=== PATIENT | female | born 1980 | race Caucasian/White ===

== ENCOUNTER → 2017-06-21 | Outpatient (CLI) | payer OTHER | END | disposition home or self-care (01) | LOC: DIB 13:33 | DX: E11.8 Type 2 diabetes mellitus with unspecified complications (principal); Z79.4 Long term (current) use of insulin ==

== ENCOUNTER 2017-08-23 15:07 | Inpatient (IN) | payer OTHER ==
[2017-08-23] MEDS: VANCOMYCIN 1 GM (PMX) 250 ML IVPB (17:00)
[2017-08-23 18:58] LABS: WHITE BLOOD COUNT 19.3 10^3/ul (4.8-10.8)
[2017-08-23 18:58] LABS: HEMATOCRIT 26.6 % (37.0-47.0); HEMOGLOBIN 8.9 g/dl (12.0-16.0); MEAN CORPUSCULAR HEMOGLOBIN 28.7 pg (29.0-33.0); MEAN CORPUSCULAR HGB CONC 33.5 g/dl (32.0-37.0); MEAN CORPUSCULAR VOLUME 85.8 fl (82.0-101.0); PLATELET COUNT 596 10^3/UL (140-415); RED CELL DISTRIBUTION WIDTH 13.1 % (11.5-14.5)
[2017-08-23 19:06] LABS: ADD MAN DIFF? YES; INR 1.26; PARTIAL THROMBOPLASTIN TIME 30.8 Sec (25.0-35.0); POSITIVE DIFF @See below; PT RATIO 1.3
[2017-08-23 19:11] LABS: ALANINE AMINOTRANSFERASE 20 IU/L (13-69); ALBUMIN 3.1 g/dl (3.3-4.9); ALBUMIN/GLOBULIN RATIO 0.88; ALKALINE PHOSPHATASE 261 IU/L (42-121); ANION GAP 23 (8-16); ASPARTATE AMINO TRANSFERASE 17 IU/L (15-46); BILIRUBIN,INDIRECT 0.1 mg/dl (0-1.1); BILIRUBIN,TOTAL 0.1 mg/dl (0.2-1.3); BLOOD UREA NITROGEN 18 mg/dl (7-20); CALCIUM 8.7 mg/dl (8.4-10.2); CARBON DIOXIDE 21 mmol/L (21-31); CHLORIDE 92 mmol/L (97-110); CREATININE 0.89 mg/dl (0.44-1.00); LIPASE 25 U/L (23-300); POTASSIUM 4.3 mmol/L (3.5-5.1); SODIUM 132 mmol/L (135-144); TOTAL PROTEIN 6.6 g/dl (6.1-8.1)
[2017-08-23 19:18] LABS: GLUCOSE 417 mg/dl (70-220)
[2017-08-23] MEDS: INSULIN LISPRO 100 UNIT/ML VIAL SC ×2 (19:22→21:49)
[2017-08-23 19:30] LABS: BAND NEUTROPHILS #M 1.5 10^3/ul (0.0-0.6); BAND NEUTROPHILS % (M) 8 % (0-4); LYMPHOCYTES #M 0.7 10^3/ul (0.8-2.9); LYMPHOCYTES % (M) 4 % (15-51); MONOCYTE #M 1.3 10^3/ul (0.3-0.9); MONOCYTES % (M) 7 % (0-11); PLATELET ESTIMATE INCREASED; SEG NEUT #M 15.9 10^3/ul (1.7-7.5); SEGMENTED NEUTROPHILS (M) % 81 % (39-77)
[2017-08-23] MEDS ORDERED: GLUCAGON 1 MG INJ IM (19:30)
[2017-08-23] MEDS ORDERED: GLUCOSE GEL 15 GRAM TUBE PO ×2 (19:30)
[2017-08-23] MEDS ORDERED: DEXTROSE 50% 50 ML SYRINGE IV ×2 (19:30)
[2017-08-23 19:55] LABS: C-REACTIVE PROTEIN 40.8 mg/dl (0.0-0.9)
[2017-08-23 20:14] LABS: ADD UMIC YES; UR ASCORBIC ACID NEGATIVE (NEGATIVE); UR BILIRUBIN (Dip) NEGATIVE (NEGATIVE); UR BLOOD (Dip) 2+ mg/dL (NEGATIVE); UR CLARITY SLIGHTLY CLOUDY (CLEAR); UR COLOR YELLOW (YELLOW); UR GLUCOSE (Dip) 3+ mg/dL (NEGATIVE); UR KETONES (Dip) 2+ mg/dL (NEGATIVE); UR LEUKOCYTE ESTERASE (Dip) NEGATIVE Leu/ul (NEGATIVE); UR NITRITE (Dip) NEGATIVE (NEGATIVE); UR RBC 11 /HPF (0-5); UR SPECIFIC GRAVITY (Dip) 1.024 (1.003-1.030); UR TOTAL PROTEIN (Dip) 2+ mg/dl (NEGATIVE); UR UROBILINOGEN (Dip) NEGATIVE (NEGATIVE); UR WBC 3 /HPF (0-5)
[2017-08-23 20:40] LABS: AMPHETAMINE/METHAMPHETAMINE NEGATIVE (NEGATIVE); BARBITURATES NEGATIVE (NEGATIVE); BENZODIAZEPINES NEGATIVE (NEGATIVE); CANNABINOIDS NEGATIVE (NEGATIVE); COCAINE NEGATIVE (NEGATIVE); OPIATES NEGATIVE (NEGATIVE)
[2017-08-23] MEDS: ONDANSETRON 4 MG INJ IV (21:30)
[2017-08-23] MEDS: SOD CHLORIDE 0.9% 1,000 ML IV (21:30)
[2017-08-23] MEDS: morphine 4 MG/ML VIAL IV (21:31)
[2017-08-23] MEDS: CEFTRIAXONE 1 GM/50 ML (PMX) 50 ML IVPB (21:31)
[2017-08-24] MEDS: ACETAMINOPHEN 325 MG TAB PO (04:09)
[2017-08-24] MEDS: HYDROmorphONE 1 MG/ML SYG IV ×2 (04:10→17:24)
[2017-08-24] MEDS: INSULIN LISPRO 100 UNIT/ML VIAL SC (04:11)
[2017-08-24] MEDS ORDERED: morphine 2 MG INJ IV (05:30)
[2017-08-24] MEDS ORDERED: ALBUTEROL/IPRATROPIUM (NEB) 3 ML AMP HHN (05:30)
[2017-08-24] MEDS ORDERED: NACL 0.9% 3 ML SYG IV (05:30)
[2017-08-24] MEDS: CLINDAMYCIN 600 MG/D5W (PMX) 50 ML IVPB (06:07)
[2017-08-24] MEDS: SOD CHLORIDE 0.9% 1,000 ML IV ×2 (06:08→17:42)
[2017-08-24 09:18] LABS: ADD MAN DIFF? NO
[2017-08-24 09:20] LABS: WHITE BLOOD COUNT 21.3 10^3/ul (4.8-10.8)
[2017-08-24 09:20] LABS: BASOPHIL # 0.1 10^3/ul (0.0-0.1); BASOPHILS % 0.3 % (0.0-2.0); EOSINOPHILS % 0.2 % (0.0-7.0); HEMATOCRIT 24.6 % (37.0-47.0); HEMOGLOBIN 8.1 g/dl (12.0-16.0); LYMPHOCYTES # 1.8 10^3/ul (0.8-2.9); LYMPHOCYTES % 8.3 % (15.0-51.0); MEAN CORPUSCULAR HEMOGLOBIN 28.2 pg (29.0-33.0); MEAN CORPUSCULAR HGB CONC 32.9 g/dl (32.0-37.0); MEAN CORPUSCULAR VOLUME 85.7 fl (82.0-101.0); MEAN PLATELET VOLUME 10.5 fl (7.4-10.4); MONOCYTE # 1.4 10^3/ul (0.3-0.9); MONOCYTES % 6.4 % (0.0-11.0); NEUTROPHIL # 17.6 10^3/ul (1.6-7.5); NEUTROPHILS % 82.9 % (39.0-77.0); PLATELET COUNT 509 10^3/UL (140-415); RED BLOOD COUNT 2.87 10^6/ul (4.20-5.40); RED CELL DISTRIBUTION WIDTH 13.2 % (11.5-14.5)
[2017-08-24 09:39] LABS: ALANINE AMINOTRANSFERASE 17 IU/L (13-69); ALBUMIN 2.7 g/dl (3.3-4.9); ALBUMIN/GLOBULIN RATIO 0.72; ALKALINE PHOSPHATASE 220 IU/L (42-121); ANION GAP 17 (8-16); ASPARTATE AMINO TRANSFERASE 13 IU/L (15-46); BLOOD UREA NITROGEN 20 mg/dl (7-20); CALCIUM 8.6 mg/dl (8.4-10.2); CARBON DIOXIDE 26 mmol/L (21-31); CHLORIDE 98 mmol/L (97-110); CREATININE 0.85 mg/dl (0.44-1.00); GLUCOSE 240 mg/dl (70-220); POTASSIUM 3.9 mmol/L (3.5-5.1); SODIUM 137 mmol/L (135-144); TOTAL PROTEIN 6.4 g/dl (6.1-8.1)
[2017-08-24] MEDS: PIPER-TAZO 3.375 GM IV (PMX) 50 ML IV ×2 (10:44→17:41)
[2017-08-24] MEDS: HEPARIN 5,000 UNIT/0.5 ML VIAL SC ×2 (10:46→21:24)
[2017-08-24] MEDS: ONDANSETRON 4 MG INJ IV (17:19)
[2017-08-24] MEDS: INSULIN GLARGINE [LANtus] 3 ML PEN SC (17:48)
[2017-08-24] MEDS ORDERED: INSULIN GLARGINE [LANtus] 3 ML PEN SC (21:00)
[2017-08-24] MEDS: INSULIN ASPART [NOVOLOG] 3 ML PEN SC (21:26)
[2017-08-25] MEDS: PIPER-TAZO 3.375 GM IV (PMX) 50 ML IV ×3 (03:45→19:11)
[2017-08-25] MEDS: SOD CHLORIDE 0.9% 1,000 ML IV ×3 (03:46→21:21)
[2017-08-25] MEDS: HYDROmorphONE 1 MG/ML SYG IV ×4 (03:48→17:56)
[2017-08-25 05:32] LABS: ADD MAN DIFF? NO
[2017-08-25 05:36] LABS: BASOPHIL # 0.1 10^3/ul (0.0-0.1); BASOPHILS % 0.3 % (0.0-2.0); EOSINOPHILS % 0.2 % (0.0-7.0); HEMATOCRIT 24.5 % (37.0-47.0); LYMPHOCYTES # 1.5 10^3/ul (0.8-2.9); LYMPHOCYTES % 6.4 % (15.0-51.0); MEAN CORPUSCULAR HEMOGLOBIN 28.4 pg (29.0-33.0); MEAN CORPUSCULAR HGB CONC 32.7 g/dl (32.0-37.0); MEAN CORPUSCULAR VOLUME 86.9 fl (82.0-101.0); MEAN PLATELET VOLUME 10.1 fl (7.4-10.4); MONOCYTE # 1.1 10^3/ul (0.3-0.9); MONOCYTES % 4.9 % (0.0-11.0); NEUTROPHIL # 19.6 10^3/ul (1.6-7.5); NEUTROPHILS % 85.9 % (39.0-77.0); PLATELET COUNT 560 10^3/UL (140-415); RED BLOOD COUNT 2.82 10^6/ul (4.20-5.40)
[2017-08-25 05:36] LABS: WHITE BLOOD COUNT 22.8 10^3/ul (4.8-10.8)
[2017-08-25 06:09] LABS: POSITIVE DIFF @See below
[2017-08-25 06:47] LABS: ANION GAP 15 (8-16); BLOOD UREA NITROGEN 16 mg/dl (7-20); CALCIUM 7.9 mg/dl (8.4-10.2); CARBON DIOXIDE 22 mmol/L (21-31); CHLORIDE 103 mmol/L (97-110); CREATININE 0.96 mg/dl (0.44-1.00); GLUCOSE 229 mg/dl (70-220); MAGNESIUM 1.9 mg/dl (1.7-2.5); PHOSPHORUS 3.5 mg/dl (2.5-4.9); POTASSIUM 3.5 mmol/L (3.5-5.1); SODIUM 136 mmol/L (135-144)
[2017-08-25] MEDS: INSULIN GLARGINE [LANtus] 3 ML PEN SC ×2 (09:10→21:52)
[2017-08-25] MEDS: HEPARIN 5,000 UNIT/0.5 ML VIAL SC ×2 (09:10→20:53)
[2017-08-25 10:40] LABS: BAND NEUTROPHILS #M 4.7 10^3/ul (0.0-0.6); BAND NEUTROPHILS % (M) 21 % (0-4); GIANT THROMBO% (M) 1 % (0-0); LYMPHOCYTES #M 1.3 10^3/ul (0.8-2.9); LYMPHOCYTES % (M) 6 % (15-51); MONOCYTE #M 1.8 10^3/ul (0.3-0.9); MONOCYTES % (M) 8 % (0-11); PLATELET ESTIMATE INCREASED; POLYCHROMASIA 2+ (0-0); SEG NEUT #M 15.9 10^3/ul (1.7-7.5); SEGMENTED NEUTROPHILS (M) % 65 % (39-77); SMUDGE%M 3 % (0-0)
[2017-08-25] MEDS: INSULIN ASPART [NOVOLOG] 3 ML PEN SC ×5 (13:14→21:00)
[2017-08-25 20:35] LABS: LACTIC ACID 1.1 mmol/L (0.5-2.0)
[2017-08-25] MEDS: CLINDAMYCIN 900 MG/D5W (PMX) 50 ML IVPB (20:41)
[2017-08-25] MEDS: oxyCODONE (CR) 10 MG TAB [oxyCONTIN] PO (21:41)
[2017-08-25] MEDS: DAPTOMYCIN IVPB (23:45)
[2017-08-25] MEDS: SOD CHLORIDE 0.9% IVPB (23:45)
[2017-08-26] MEDS: PIPER-TAZO 3.375 GM IV (PMX) 50 ML IV ×3 (01:22→17:28)
[2017-08-26] MEDS: ACCU-CHEK XX (02:55)
[2017-08-26] MEDS: CLINDAMYCIN 900 MG/D5W (PMX) 50 ML IVPB ×4 (02:56→23:41)
[2017-08-26] MEDS: HYDROmorphONE 1 MG/ML SYG IV ×2 (04:46→17:28)
[2017-08-26] MEDS: SOD CHLORIDE 0.9% 1,000 ML IV ×2 (06:07→17:24)
[2017-08-26 07:19] LABS: CREATINE KINASE < 20 IU/L (23-200)
[2017-08-26] MEDS: INSULIN ASPART [NOVOLOG] 3 ML PEN SC ×7 (07:35→20:53)
[2017-08-26] MEDS ORDERED: INSULIN ASPART [NOVOLOG] 3 ML PEN SC ×3 (07:35→17:35)
[2017-08-26] MEDS: oxyCODONE (CR) 10 MG TAB [oxyCONTIN] PO ×2 (09:29→22:50)
[2017-08-26] MEDS: HEPARIN 5,000 UNIT/0.5 ML VIAL SC ×2 (09:38→20:57)
[2017-08-26] MEDS: INSULIN GLARGINE [LANtus] 3 ML PEN SC (09:41)
[2017-08-26] MEDS: ACETAMINOPHEN 325 MG TAB PO (14:36)
[2017-08-26] MEDS: SOD CHLORIDE 0.9% IVPB (19:52)
[2017-08-26] MEDS: DAPTOMYCIN IVPB (19:52)
[2017-08-26] MEDS: GEMFIBROZIL 600 MG TAB PO (20:53)
[2017-08-26] MEDS: DOCUSATE SODIUM 100 MG CAP PO (20:53)
[2017-08-27] MEDS: PIPER-TAZO 3.375 GM IV (PMX) 50 ML IV ×4 (00:38→17:22)
[2017-08-27] MEDS: HYDROmorphONE 1 MG/ML SYG IV ×3 (02:18→22:36)
[2017-08-27] MEDS: ACCU-CHEK XX (02:18)
[2017-08-27] MEDS: CLINDAMYCIN 900 MG/D5W (PMX) 50 ML IVPB ×3 (05:06→18:55)
[2017-08-27 05:43] LABS: ABNORMAL IP MESSAGE 1; HEMATOCRIT 21.1 % (37.0-47.0); MEAN CORPUSCULAR HGB CONC 31.8 g/dl (32.0-37.0); MEAN CORPUSCULAR VOLUME 88.3 fl (82.0-101.0); MEAN PLATELET VOLUME 9.9 fl (7.4-10.4); NUCLEATED RED BLOOD CELLS% 0.2 /100WBC (0.0-0.0); PLATELET COUNT 593 10^3/UL (140-415); RED BLOOD COUNT 2.39 10^6/ul (4.20-5.40); RED CELL DISTRIBUTION WIDTH 14.7 % (11.5-14.5)
[2017-08-27 05:43] LABS: WHITE BLOOD COUNT 23.5 10^3/ul (4.8-10.8)
[2017-08-27 06:00] LABS: HEMOGLOBIN 6.7 g/dl (12.0-16.0); POSITIVE DIFF @See below
[2017-08-27 06:02] LABS: ADD MAN DIFF? YES
[2017-08-27 06:28] LABS: ANION GAP 18 (8-16); BLOOD UREA NITROGEN 14 mg/dl (7-20); CALCIUM 7.7 mg/dl (8.4-10.2); CARBON DIOXIDE 19 mmol/L (21-31); CHLORIDE 106 mmol/L (97-110); CREATININE 1.23 mg/dl (0.44-1.00); GLUCOSE 91 mg/dl (70-220); POTASSIUM 3.6 mmol/L (3.5-5.1); SODIUM 139 mmol/L (135-144)
[2017-08-27] MEDS: INSULIN GLARGINE [LANtus] 3 ML PEN SC ×2 (08:00→20:49)
[2017-08-27] MEDS: INSULIN ASPART [NOVOLOG] 3 ML PEN SC ×4 (08:00→21:00)
[2017-08-27] MEDS: GLUCOSE GEL 15 GRAM TUBE BUCCAL (08:03)
[2017-08-27] MEDS: HEPARIN 5,000 UNIT/0.5 ML VIAL SC ×2 (09:00→21:16)
[2017-08-27] MEDS: SOD CHLORIDE 0.9% 1,000 ML IV ×4 (09:11→23:21)
[2017-08-27] MEDS: GEMFIBROZIL 600 MG TAB PO ×2 (09:12→20:51)
[2017-08-27] MEDS: DOCUSATE SODIUM 100 MG CAP PO ×2 (09:12→20:51)
[2017-08-27] MEDS: oxyCODONE (CR) 10 MG TAB [oxyCONTIN] PO ×2 (09:13→22:03)
[2017-08-27] MEDS: ASPIRIN (EC) 81 MG TAB PO (09:13)
[2017-08-27] MEDS: ACETAMINOPHEN 325 MG TAB PO (13:23)
[2017-08-27] MEDS: SOD CHLORIDE 0.9% IVPB (20:53)
[2017-08-27] MEDS: DAPTOMYCIN IVPB (20:53)
[2017-08-27 22:25] LABS: IMMEDIATE SPIN CROSSMATCH 1 2
[2017-08-28] MEDS: ACCU-CHEK XX (02:00)
[2017-08-28] MEDS: HYDROmorphONE 1 MG/ML SYG IV ×2 (02:07→15:33)
[2017-08-28] MEDS: PIPER-TAZO 3.375 GM IV (PMX) 50 ML IV ×5 (02:14→17:07)
[2017-08-28] MEDS: CLINDAMYCIN 900 MG/D5W (PMX) 50 ML IVPB ×5 (02:53→17:34)
[2017-08-28 06:52] LABS: WHITE BLOOD COUNT 18.7 10^3/ul (4.8-10.8)
[2017-08-28 06:52] LABS: HEMATOCRIT 26.3 % (37.0-47.0); HEMOGLOBIN 8.8 g/dl (12.0-16.0); MEAN CORPUSCULAR HGB CONC 33.5 g/dl (32.0-37.0); MEAN CORPUSCULAR VOLUME 86.8 fl (82.0-101.0); MEAN PLATELET VOLUME 9.4 fl (7.4-10.4); NUCLEATED RED BLOOD CELLS% 0.3 /100WBC (0.0-0.0); PLATELET COUNT 570 10^3/UL (140-415); RED BLOOD COUNT 3.03 10^6/ul (4.20-5.40); RED CELL DISTRIBUTION WIDTH 14.5 % (11.5-14.5)
[2017-08-28 07:01] LABS: POSITIVE DIFF @See below
[2017-08-28 07:02] LABS: ADD MAN DIFF? YES
[2017-08-28 07:39] LABS: ANION GAP 16 (8-16); BLOOD UREA NITROGEN 11 mg/dl (7-20); CALCIUM 7.5 mg/dl (8.4-10.2); CARBON DIOXIDE 20 mmol/L (21-31); CHLORIDE 107 mmol/L (97-110); CREATININE 1.04 mg/dl (0.44-1.00); GLUCOSE 153 mg/dl (70-220); SODIUM 139 mmol/L (135-144)
[2017-08-28] MEDS: INSULIN ASPART [NOVOLOG] 3 ML PEN SC ×4 (07:58→20:25)
[2017-08-28] MEDS: INSULIN GLARGINE [LANtus] 3 ML PEN SC ×2 (07:59→20:28)
[2017-08-28] MEDS: HEPARIN 5,000 UNIT/0.5 ML VIAL SC ×2 (08:00→20:27)
[2017-08-28] MEDS: ASPIRIN (EC) 81 MG TAB PO (08:03)
[2017-08-28] MEDS: DOCUSATE SODIUM 100 MG CAP PO ×2 (08:03→20:26)
[2017-08-28] MEDS: oxyCODONE (CR) 10 MG TAB [oxyCONTIN] PO ×2 (08:03→20:36)
[2017-08-28] MEDS: GEMFIBROZIL 600 MG TAB PO ×2 (08:04→20:26)
[2017-08-28 08:23] LABS: BASOPHIL # 0.1 10^3/ul (0.0-0.1); BASOPHILS % 0.4 % (0.0-2.0); LYMPHOCYTES # 2.1 10^3/ul (0.8-2.9); LYMPHOCYTES % 10.3 % (15.0-51.0); MONOCYTE # 0.9 10^3/ul (0.3-0.9); MONOCYTES % 4.2 % (0.0-11.0)
[2017-08-28 08:46] LABS: ANISOCYTOSIS 1+ (0-0); BAND NEUTROPHILS #M 1.1 10^3/ul (0.0-0.6); BAND NEUTROPHILS % (M) 6 % (0-4); ERYTHROBLAST% (NRBC) (M) 2 % (0-0); LYMPHOCYTES #M 3.7 10^3/ul (0.8-2.9); LYMPHOCYTES % (M) 20 % (15-51); PLATELET ESTIMATE INCREASED; REACTIVE LYMPHOCYTES #M 0.1 10^3/ul (0.0-0.0); REACTIVE LYMPHOCYTES% (M) 1 % (0-0); SEG NEUT #M 13.9 10^3/ul (1.7-7.5); SEGMENTED NEUTROPHILS (M) % 73 % (39-77); SMUDGE%M 10 % (0-0)
[2017-08-28] MEDS: SOD CHLORIDE 0.9% 1,000 ML IV ×3 (09:21→19:21)
[2017-08-28] MEDS: SOD CHLORIDE 0.9% IVPB (19:48)
[2017-08-28] MEDS: DAPTOMYCIN IVPB (19:48)
[2017-08-29] MEDS: PIPER-TAZO 3.375 GM IV (PMX) 50 ML IV ×3 (00:03→12:27)
[2017-08-29] MEDS: CLINDAMYCIN 900 MG/D5W (PMX) 50 ML IVPB ×3 (00:49→12:27)
[2017-08-29] MEDS: ACCU-CHEK XX (02:00)
[2017-08-29] MEDS: SOD CHLORIDE 0.9% 1,000 ML IV ×3 (05:19→17:54)
[2017-08-29] MEDS: HYDROmorphONE 1 MG/ML SYG IV (05:21)
[2017-08-29 05:51] LABS: ADD MAN DIFF? NO
[2017-08-29 05:55] LABS: BASOPHIL # 0.1 10^3/ul (0.0-0.1); BASOPHILS % 0.3 % (0.0-2.0); EOSINOPHILS # 0.2 10^3/ul (0.0-0.5); EOSINOPHILS % 1.4 % (0.0-7.0); HEMATOCRIT 25.2 % (37.0-47.0); HEMOGLOBIN 8.6 g/dl (12.0-16.0); LYMPHOCYTES % 12.3 % (15.0-51.0); MEAN CORPUSCULAR HEMOGLOBIN 29.6 pg (29.0-33.0); MEAN CORPUSCULAR HGB CONC 34.1 g/dl (32.0-37.0); MEAN CORPUSCULAR VOLUME 86.6 fl (82.0-101.0); MEAN PLATELET VOLUME 9.3 fl (7.4-10.4); MONOCYTE # 0.8 10^3/ul (0.3-0.9); MONOCYTES % 4.6 % (0.0-11.0); NEUTROPHIL # 12.9 10^3/ul (1.6-7.5); NEUTROPHILS % 77.5 % (39.0-77.0); NUCLEATED RED BLOOD CELLS% 0.2 /100WBC (0.0-0.0); PLATELET COUNT 638 10^3/UL (140-415); RED BLOOD COUNT 2.91 10^6/ul (4.20-5.40); RED CELL DISTRIBUTION WIDTH 14.6 % (11.5-14.5)
[2017-08-29 05:55] LABS: WHITE BLOOD COUNT 16.6 10^3/ul (4.8-10.8)
[2017-08-29 06:33] LABS: ANION GAP 14 (8-16); BLOOD UREA NITROGEN 9 mg/dl (7-20); CALCIUM 7.8 mg/dl (8.4-10.2); CARBON DIOXIDE 21 mmol/L (21-31); CHLORIDE 106 mmol/L (97-110); CREATININE 0.88 mg/dl (0.44-1.00); GLUCOSE 122 mg/dl (70-220); POTASSIUM 4.3 mmol/L (3.5-5.1); SODIUM 137 mmol/L (135-144)
[2017-08-29] MEDS: INSULIN ASPART [NOVOLOG] 3 ML PEN SC ×4 (08:00→20:23)
[2017-08-29] MEDS: HEPARIN 5,000 UNIT/0.5 ML VIAL SC ×2 (08:43→20:22)
[2017-08-29] MEDS: INSULIN GLARGINE [LANtus] 3 ML PEN SC ×2 (08:43→20:22)
[2017-08-29] MEDS: DOCUSATE SODIUM 100 MG CAP PO ×2 (08:45→20:20)
[2017-08-29] MEDS: ASPIRIN (EC) 81 MG TAB PO (08:45)
[2017-08-29] MEDS: oxyCODONE (CR) 10 MG TAB [oxyCONTIN] PO ×2 (08:45→20:20)
[2017-08-29] MEDS: GEMFIBROZIL 600 MG TAB PO ×2 (08:45→20:20)
[2017-08-29] MEDS: LIDOCAINE 1% (MDV) 20 ML INJ SC (16:00)
[2017-08-29] MEDS: HYDROmorphONE 2 MG TAB PO (16:23)
[2017-08-29] MEDS: COLLAGENASE 30 GM TUBE TOP (17:24)
[2017-08-29] MEDS: AMPICILLIN/SULB 3 GM/NS (PMX) 100 ML IVPB ×2 (17:24→23:54)
[2017-08-29 18:24] LABS: SYN FLD MN % 46.3 &; SYN FLD PMN % 53.7 % (0.0-25.0); SYN FLD WBC 462 /cmm (0-150)
[2017-08-29 19:19] LABS: SYN FLD SOURCE RIGHT KNEE
[2017-08-29 19:19] LABS: SYN FLD CLARITY CLOUDY; SYN FLD CRYSTALS NO CRYSTALS SEEN (None seen)
[2017-08-29 21:48] LABS: SYN FLD COLOR YELLOW
[2017-08-30] MEDS: ACCU-CHEK XX (02:00)
[2017-08-30] MEDS: AMPICILLIN/SULB 3 GM/NS (PMX) 100 ML IVPB ×2 (05:30→11:58)
[2017-08-30] MEDS: SOD CHLORIDE 0.9% 1,000 ML IV ×2 (05:30→20:05)
[2017-08-30 05:54] LABS: ADD MAN DIFF? NO
[2017-08-30 06:17] LABS: BASOPHIL # 0.1 10^3/ul (0.0-0.1); BASOPHILS % 0.3 % (0.0-2.0); EOSINOPHILS # 0.3 10^3/ul (0.0-0.5); EOSINOPHILS % 2.1 % (0.0-7.0); HEMATOCRIT 25.9 % (37.0-47.0); HEMOGLOBIN 8.7 g/dl (12.0-16.0); LYMPHOCYTES % 13.4 % (15.0-51.0); MEAN CORPUSCULAR HEMOGLOBIN 29.7 pg (29.0-33.0); MEAN CORPUSCULAR HGB CONC 33.6 g/dl (32.0-37.0); MEAN CORPUSCULAR VOLUME 88.4 fl (82.0-101.0); MEAN PLATELET VOLUME 9.5 fl (7.4-10.4); MONOCYTE # 0.9 10^3/ul (0.3-0.9); NEUTROPHIL # 11.1 10^3/ul (1.6-7.5); NUCLEATED RED BLOOD CELLS% 0.2 /100WBC (0.0-0.0); RED BLOOD COUNT 2.93 10^6/ul (4.20-5.40); RED CELL DISTRIBUTION WIDTH 14.7 % (11.5-14.5)
[2017-08-30 06:17] LABS: WHITE BLOOD COUNT 14.9 10^3/ul (4.8-10.8)
[2017-08-30 06:19] LABS: PLATELET COUNT 673 10^3/UL (140-415)
[2017-08-30 06:27] LABS: ANION GAP 13 (8-16); BLOOD UREA NITROGEN 8 mg/dl (7-20); CALCIUM 7.8 mg/dl (8.4-10.2); CARBON DIOXIDE 25 mmol/L (21-31); CHLORIDE 104 mmol/L (97-110); CREATININE 0.78 mg/dl (0.44-1.00); GLUCOSE 136 mg/dl (70-220); POTASSIUM 4.4 mmol/L (3.5-5.1); SODIUM 138 mmol/L (135-144)
[2017-08-30] MEDS: INSULIN ASPART [NOVOLOG] 3 ML PEN SC ×5 (07:54→21:00)
[2017-08-30] MEDS: INSULIN GLARGINE [LANtus] 3 ML PEN SC ×2 (07:55→22:13)
[2017-08-30] MEDS: GEMFIBROZIL 600 MG TAB PO ×2 (08:59→21:03)
[2017-08-30] MEDS: DOCUSATE SODIUM 100 MG CAP PO ×2 (08:59→21:03)
[2017-08-30] MEDS: ASPIRIN (EC) 81 MG TAB PO (08:59)
[2017-08-30] MEDS: oxyCODONE (CR) 10 MG TAB [oxyCONTIN] PO ×2 (08:59→21:03)
[2017-08-30] MEDS: COLLAGENASE 30 GM TUBE TOP (09:02)
[2017-08-30] MEDS: HEPARIN 5,000 UNIT/0.5 ML VIAL SC ×2 (09:02→21:04)
[2017-08-30] MEDS: HYDROmorphONE 2 MG TAB PO (12:01)
[2017-08-30] MEDS: SULBAC IVPB (21:02)
[2017-08-30] MEDS: SOD CHLORIDE 0.9% IVPB (21:02)
[2017-08-30] MEDS: AMPICILLIN IVPB (21:02)
[2017-08-31] MEDS: ACCU-CHEK XX (02:00)
[2017-08-31] MEDS: AMPICILLIN IVPB ×4 (02:00→17:55)
[2017-08-31] MEDS: SOD CHLORIDE 0.9% IVPB ×4 (02:00→17:55)
[2017-08-31] MEDS: SULBAC IVPB ×4 (02:00→17:55)
[2017-08-31] MEDS: HYDROmorphONE 2 MG TAB PO (02:56)
[2017-08-31 05:57] LABS: ADD MAN DIFF? NO
[2017-08-31 06:12] LABS: BASOPHILS % 0.1 % (0.0-2.0); EOSINOPHILS # 0.3 10^3/ul (0.0-0.5); HEMATOCRIT 27.5 % (37.0-47.0); LYMPHOCYTES # 2.2 10^3/ul (0.8-2.9); LYMPHOCYTES % 14.7 % (15.0-51.0); MEAN CORPUSCULAR HEMOGLOBIN 28.7 pg (29.0-33.0); MEAN CORPUSCULAR HGB CONC 32.7 g/dl (32.0-37.0); MEAN CORPUSCULAR VOLUME 87.6 fl (82.0-101.0); MEAN PLATELET VOLUME 9.3 fl (7.4-10.4); MONOCYTE # 0.9 10^3/ul (0.3-0.9); MONOCYTES % 6.2 % (0.0-11.0); NEUTROPHIL # 10.9 10^3/ul (1.6-7.5); NEUTROPHILS % 73.5 % (39.0-77.0); PLATELET COUNT 744 10^3/UL (140-415); RED BLOOD COUNT 3.14 10^6/ul (4.20-5.40); RED CELL DISTRIBUTION WIDTH 14.5 % (11.5-14.5)
[2017-08-31 06:12] LABS: WHITE BLOOD COUNT 14.8 10^3/ul (4.8-10.8)
[2017-08-31 06:51] LABS: ANION GAP 13 (8-16); BLOOD UREA NITROGEN 12 mg/dl (7-20); CALCIUM 8.1 mg/dl (8.4-10.2); CARBON DIOXIDE 27 mmol/L (21-31); CHLORIDE 102 mmol/L (97-110); CREATININE 0.73 mg/dl (0.44-1.00); GLUCOSE 135 mg/dl (70-220); POTASSIUM 3.9 mmol/L (3.5-5.1); SODIUM 138 mmol/L (135-144)
[2017-08-31] MEDS: INSULIN ASPART [NOVOLOG] 3 ML PEN SC ×7 (08:00→21:22)
[2017-08-31] MEDS: DOCUSATE SODIUM 100 MG CAP PO ×2 (09:27→21:18)
[2017-08-31] MEDS: ASPIRIN (EC) 81 MG TAB PO (09:27)
[2017-08-31] MEDS: oxyCODONE (CR) 10 MG TAB [oxyCONTIN] PO ×2 (09:28→21:18)
[2017-08-31] MEDS: GEMFIBROZIL 600 MG TAB PO ×2 (09:29→21:18)
[2017-08-31] MEDS: HEPARIN 5,000 UNIT/0.5 ML VIAL SC ×2 (09:32→21:20)
[2017-08-31] MEDS: SOD CHLORIDE 0.9% 1,000 ML IV (09:35)
[2017-08-31 11:23] LABS: PROCALCITONIN 2.27 ng/mL (<0.10)
[2017-08-31] MEDS: COLLAGENASE 30 GM TUBE TOP (14:00)
[2017-08-31] MEDS: INSULIN GLARGINE [LANtus] 3 ML PEN SC (21:24)
[2017-09-01] MEDS: SOD CHLORIDE 0.9% IVPB ×4 (00:15→17:02)
[2017-09-01] MEDS: AMPICILLIN IVPB ×4 (00:15→17:02)
[2017-09-01] MEDS: SULBAC IVPB ×4 (00:15→17:02)
[2017-09-01] MEDS: ACCU-CHEK XX (02:00)
[2017-09-01] MEDS: SOD CHLORIDE 0.9% 1,000 ML IV ×3 (05:19→12:46)
[2017-09-01 06:00] LABS: ADD MAN DIFF? NO
[2017-09-01 06:14] LABS: BASOPHILS % 0.2 % (0.0-2.0); EOSINOPHILS # 0.3 10^3/ul (0.0-0.5); EOSINOPHILS % 1.8 % (0.0-7.0); HEMATOCRIT 28.3 % (37.0-47.0); HEMOGLOBIN 9.2 g/dl (12.0-16.0); LYMPHOCYTES # 2.5 10^3/ul (0.8-2.9); LYMPHOCYTES % 16.8 % (15.0-51.0); MEAN CORPUSCULAR HEMOGLOBIN 28.5 pg (29.0-33.0); MEAN CORPUSCULAR HGB CONC 32.5 g/dl (32.0-37.0); MEAN CORPUSCULAR VOLUME 87.6 fl (82.0-101.0); MEAN PLATELET VOLUME 9.2 fl (7.4-10.4); MONOCYTE # 0.9 10^3/ul (0.3-0.9); MONOCYTES % 6.4 % (0.0-11.0); NEUTROPHIL # 10.7 10^3/ul (1.6-7.5); NEUTROPHILS % 72.6 % (39.0-77.0); RED BLOOD COUNT 3.23 10^6/ul (4.20-5.40); RED CELL DISTRIBUTION WIDTH 14.2 % (11.5-14.5)
[2017-09-01 06:14] LABS: WHITE BLOOD COUNT 14.7 10^3/ul (4.8-10.8)
[2017-09-01 06:34] LABS: ANION GAP 12 (8-16); BLOOD UREA NITROGEN 19 mg/dl (7-20); CARBON DIOXIDE 29 mmol/L (21-31); CHLORIDE 98 mmol/L (97-110); CREATININE 0.77 mg/dl (0.44-1.00); GLUCOSE 224 mg/dl (70-220); SODIUM 135 mmol/L (135-144)
[2017-09-01 07:27] LABS: PLATELET COUNT 775 10^3/UL (140-415)
[2017-09-01] MEDS: INSULIN ASPART [NOVOLOG] 3 ML PEN SC ×7 (08:26→22:25)
[2017-09-01] MEDS: HEPARIN 5,000 UNIT/0.5 ML VIAL SC ×2 (08:28→22:25)
[2017-09-01] MEDS: COLLAGENASE 30 GM TUBE TOP ×2 (09:00→15:40)
[2017-09-01] MEDS: DOCUSATE SODIUM 100 MG CAP PO ×2 (09:31→22:18)
[2017-09-01] MEDS: ASPIRIN (EC) 81 MG TAB PO (09:32)
[2017-09-01] MEDS: oxyCODONE (CR) 10 MG TAB [oxyCONTIN] PO ×2 (09:32→22:38)
[2017-09-01] MEDS: GEMFIBROZIL 600 MG TAB PO ×2 (09:32→22:38)
[2017-09-01] MEDS: INSULIN GLARGINE [LANtus] 3 ML PEN SC (22:23)
[2017-09-02] MEDS: ACCU-CHEK XX (03:00)
[2017-09-02] MEDS: SOD CHLORIDE 0.9% 1,000 ML IV (03:03)
[2017-09-02] MEDS: AMPICILLIN IVPB ×4 (03:05→20:37)
[2017-09-02] MEDS: SULBAC IVPB ×4 (03:05→20:37)
[2017-09-02] MEDS: SOD CHLORIDE 0.9% IVPB ×4 (03:05→20:37)
[2017-09-02] MEDS: INSULIN ASPART [NOVOLOG] 3 ML PEN SC ×7 (08:00→21:34)
[2017-09-02] MEDS: GEMFIBROZIL 600 MG TAB PO ×2 (08:20→20:29)
[2017-09-02] MEDS: DOCUSATE SODIUM 100 MG CAP PO ×2 (08:20→20:29)
[2017-09-02] MEDS: oxyCODONE (CR) 10 MG TAB [oxyCONTIN] PO ×2 (08:20→20:29)
[2017-09-02] MEDS: ASPIRIN (EC) 81 MG TAB PO (08:21)
[2017-09-02] MEDS: HEPARIN 5,000 UNIT/0.5 ML VIAL SC ×2 (08:22→20:33)
[2017-09-02] MEDS: COLLAGENASE 30 GM TUBE TOP (08:29)
[2017-09-02] MEDS: HYDROmorphONE 2 MG TAB PO (11:18)
[2017-09-02] MEDS ORDERED: MIDAZOLAM 1 MG/ML 2 ML INJ (17:38)
[2017-09-02] MEDS ORDERED: FENTAnyl 50 MCG/ML VIAL (17:38)
[2017-09-02] MEDS: POLYMYXIN/BACITRACIN 1L IRRIG (18:08)
[2017-09-02] MEDS ORDERED: PROPOFOL 20 ML (18:20)
[2017-09-02] MEDS ORDERED: METOCLOPRAMIDE 10 MG INJ (18:20)
[2017-09-02] MEDS ORDERED: ONDANSETRON 4 MG INJ (18:20)
[2017-09-02] MEDS ORDERED: LABETALOL HCL 20MG INJ IV (18:30)
[2017-09-02] MEDS ORDERED: ONDANSETRON 4 MG INJ IV (18:30)
[2017-09-02] MEDS ORDERED: HYDROmorphONE (0.2 MG/ML) 10ML SYG IV ×3 (18:30)
[2017-09-02] MEDS ORDERED: MEPERIDINE 25 MG INJ IV (18:30)
[2017-09-02] MEDS ORDERED: DIPHENHYDRAMINE 50 MG INJ IV (18:30)
[2017-09-02] MEDS ORDERED: FENTAnyl 50 MCG/ML VIAL IV ×2 (18:30)
[2017-09-02] MEDS ORDERED: EPHEDrine SULFATE 50 MG/5 ML SYG IV (18:30)
[2017-09-02] MEDS ORDERED: hydrALAzine 20 MG INJ IV (18:30)
[2017-09-02] MEDS: METOCLOPRAMIDE 10 MG INJ IV (18:53)
[2017-09-02] MEDS: FENTAnyl 50 MCG/ML VIAL IV (18:53)
[2017-09-02] MEDS: INSULIN GLARGINE [LANtus] 3 ML PEN SC (20:31)
[2017-09-03] MEDS: SULBAC IVPB ×5 (01:19→23:25)
[2017-09-03] MEDS: SOD CHLORIDE 0.9% IVPB ×5 (01:19→23:25)
[2017-09-03] MEDS: AMPICILLIN IVPB ×5 (01:19→23:25)
[2017-09-03] MEDS: ACCU-CHEK XX (02:55)
[2017-09-03 05:07] LABS: ADD MAN DIFF? NO
[2017-09-03 05:13] LABS: BASOPHILS % 0.3 % (0.0-2.0); EOSINOPHILS # 0.3 10^3/ul (0.0-0.5); EOSINOPHILS % 2.4 % (0.0-7.0); HEMATOCRIT 27.7 % (37.0-47.0); LYMPHOCYTES # 2.1 10^3/ul (0.8-2.9); LYMPHOCYTES % 16.5 % (15.0-51.0); MEAN CORPUSCULAR HEMOGLOBIN 28.8 pg (29.0-33.0); MEAN CORPUSCULAR HGB CONC 32.5 g/dl (32.0-37.0); MEAN CORPUSCULAR VOLUME 88.5 fl (82.0-101.0); MONOCYTE # 0.7 10^3/ul (0.3-0.9); MONOCYTES % 5.5 % (0.0-11.0); NEUTROPHIL # 9.4 10^3/ul (1.6-7.5); NEUTROPHILS % 74.4 % (39.0-77.0); PLATELET COUNT 794 10^3/UL (140-415); RED BLOOD COUNT 3.13 10^6/ul (4.20-5.40); RED CELL DISTRIBUTION WIDTH 14.2 % (11.5-14.5)
[2017-09-03 05:13] LABS: WHITE BLOOD COUNT 12.6 10^3/ul (4.8-10.8)
[2017-09-03 05:30] LABS: ANION GAP 14 (8-16); BLOOD UREA NITROGEN 23 mg/dl (7-20); CALCIUM 8.2 mg/dl (8.4-10.2); CARBON DIOXIDE 28 mmol/L (21-31); CHLORIDE 99 mmol/L (97-110); CREATININE 0.86 mg/dl (0.44-1.00); GLUCOSE 215 mg/dl (70-220); POTASSIUM 4.1 mmol/L (3.5-5.1); SODIUM 137 mmol/L (135-144)
[2017-09-03] MEDS: SOD CHLORIDE 0.9% 1,000 ML IV (05:39)
[2017-09-03] MEDS: HYDROmorphONE 2 MG TAB PO ×3 (06:17→23:46)
[2017-09-03] MEDS: COLLAGENASE 30 GM TUBE TOP (06:36)
[2017-09-03] MEDS: INSULIN ASPART [NOVOLOG] 3 ML PEN SC ×7 (07:53→21:00)
[2017-09-03] MEDS: DOCUSATE SODIUM 100 MG CAP PO ×2 (08:32→22:21)
[2017-09-03] MEDS: HEPARIN 5,000 UNIT/0.5 ML VIAL SC ×2 (08:32→22:20)
[2017-09-03] MEDS: ASPIRIN (EC) 81 MG TAB PO (08:32)
[2017-09-03] MEDS: GEMFIBROZIL 600 MG TAB PO ×2 (08:32→22:21)
[2017-09-03] MEDS: oxyCODONE (CR) 10 MG TAB [oxyCONTIN] PO ×2 (08:33→22:21)
[2017-09-03] MEDS ORDERED: SODIUM HYPOCHLORITE 0.125% 473 ML BTL IRR (09:00)
[2017-09-03] MEDS: SODIUM HYPOCHLORITE 0.125% 473 ML BTL IRR (11:51)
[2017-09-03] MEDS: INSULIN GLARGINE [LANtus] 3 ML PEN SC (22:19)
[2017-09-04] MEDS: ACCU-CHEK XX (02:00)
[2017-09-04] MEDS: SOD CHLORIDE 0.9% 1,000 ML IV ×2 (05:10→17:39)
[2017-09-04] MEDS: AMPICILLIN IVPB ×4 (05:51→23:38)
[2017-09-04] MEDS: SOD CHLORIDE 0.9% IVPB ×4 (05:51→23:38)
[2017-09-04] MEDS: SULBAC IVPB ×4 (05:51→23:38)
[2017-09-04] MEDS: COLLAGENASE 30 GM TUBE TOP ×2 (05:52→08:25)
[2017-09-04] MEDS: INSULIN ASPART [NOVOLOG] 3 ML PEN SC ×7 (08:00→21:00)
[2017-09-04] MEDS: ASPIRIN (EC) 81 MG TAB PO (08:18)
[2017-09-04] MEDS: DOCUSATE SODIUM 100 MG CAP PO ×2 (08:18→20:47)
[2017-09-04] MEDS: oxyCODONE (CR) 10 MG TAB [oxyCONTIN] PO ×2 (08:18→20:47)
[2017-09-04] MEDS: GEMFIBROZIL 600 MG TAB PO ×2 (08:18→20:47)
[2017-09-04] MEDS: HEPARIN 5,000 UNIT/0.5 ML VIAL SC ×2 (08:21→20:49)
[2017-09-04] MEDS: SODIUM HYPOCHLORITE 0.125% 473 ML BTL IRR (08:24)
[2017-09-04] MEDS: INSULIN GLARGINE [LANtus] 3 ML PEN SC (20:50)
[2017-09-05] MEDS: HYDROmorphONE 2 MG TAB PO (00:45)
[2017-09-05] MEDS: ACCU-CHEK XX (02:00)
[2017-09-05] MEDS: AMPICILLIN IVPB ×2 (05:26→12:30)
[2017-09-05] MEDS: SULBAC IVPB ×2 (05:26→12:30)
[2017-09-05] MEDS: SOD CHLORIDE 0.9% IVPB ×2 (05:26→12:30)
[2017-09-05] MEDS: SOD CHLORIDE 0.9% 1,000 ML IV (05:39)
[2017-09-05 06:33] LABS: ADD MAN DIFF? NO
[2017-09-05 06:36] LABS: BASOPHIL # 0.1 10^3/ul (0.0-0.1); BASOPHILS % 0.6 % (0.0-2.0); EOSINOPHILS # 0.2 10^3/ul (0.0-0.5); EOSINOPHILS % 1.8 % (0.0-7.0); HEMATOCRIT 26.9 % (37.0-47.0); HEMOGLOBIN 8.7 g/dl (12.0-16.0); LYMPHOCYTES # 2.4 10^3/ul (0.8-2.9); LYMPHOCYTES % 22.2 % (15.0-51.0); MEAN CORPUSCULAR HEMOGLOBIN 29.3 pg (29.0-33.0); MEAN CORPUSCULAR HGB CONC 32.3 g/dl (32.0-37.0); MEAN CORPUSCULAR VOLUME 90.6 fl (82.0-101.0); MONOCYTE # 0.5 10^3/ul (0.3-0.9); MONOCYTES % 4.7 % (0.0-11.0); NEUTROPHIL # 7.4 10^3/ul (1.6-7.5); NEUTROPHILS % 70.1 % (39.0-77.0); RED BLOOD COUNT 2.97 10^6/ul (4.20-5.40); RED CELL DISTRIBUTION WIDTH 14.2 % (11.5-14.5)
[2017-09-05 06:36] LABS: WHITE BLOOD COUNT 10.6 10^3/ul (4.8-10.8)
[2017-09-05 06:59] LABS: PLATELET COUNT 805 10^3/UL (140-415)
[2017-09-05 07:16] LABS: ANION GAP 10 (8-16); BLOOD UREA NITROGEN 17 mg/dl (7-20); CALCIUM 8.8 mg/dl (8.4-10.2); CARBON DIOXIDE 28 mmol/L (21-31); CHLORIDE 104 mmol/L (97-110); CREATININE 0.94 mg/dl (0.44-1.00); GLUCOSE 116 mg/dl (70-220); POTASSIUM 4.1 mmol/L (3.5-5.1); SODIUM 138 mmol/L (135-144)
[2017-09-05] MEDS: INSULIN ASPART [NOVOLOG] 3 ML PEN SC ×7 (08:00→21:41)
[2017-09-05] MEDS: HEPARIN 5,000 UNIT/0.5 ML VIAL SC ×2 (08:27→21:38)
[2017-09-05] MEDS: oxyCODONE (CR) 10 MG TAB [oxyCONTIN] PO ×2 (08:27→21:38)
[2017-09-05] MEDS: DOCUSATE SODIUM 100 MG CAP PO ×2 (08:27→21:38)
[2017-09-05] MEDS: ASPIRIN (EC) 81 MG TAB PO (08:27)
[2017-09-05] MEDS: GEMFIBROZIL 600 MG TAB PO ×2 (08:27→21:38)
[2017-09-05] MEDS: SODIUM HYPOCHLORITE 0.125% 473 ML BTL IRR (08:41)
[2017-09-05] MEDS: COLLAGENASE 30 GM TUBE TOP (08:41)
[2017-09-05] MEDS: AMPICILLIN/SULB 3 GM/NS (PMX) 100 ML IVPB (17:24)
[2017-09-05] MEDS: INSULIN GLARGINE [LANtus] 3 ML PEN SC (21:39)
[2017-09-06] MEDS: AMPICILLIN/SULB 3 GM/NS (PMX) 100 ML IVPB ×4 (00:20→17:25)
[2017-09-06] MEDS: ACCU-CHEK XX (02:00)
[2017-09-06] MEDS: SOD CHLORIDE 0.9% 1,000 ML IV (05:48)
[2017-09-06 07:01] LABS: ADD MAN DIFF? NO
[2017-09-06 07:07] LABS: BASOPHILS % 0.5 % (0.0-2.0); EOSINOPHILS # 0.3 10^3/ul (0.0-0.5); EOSINOPHILS % 2.9 % (0.0-7.0); HEMOGLOBIN 8.6 g/dl (12.0-16.0); LYMPHOCYTES # 2.3 10^3/ul (0.8-2.9); LYMPHOCYTES % 26.4 % (15.0-51.0); MEAN CORPUSCULAR HEMOGLOBIN 29.6 pg (29.0-33.0); MEAN CORPUSCULAR HGB CONC 33.1 g/dl (32.0-37.0); MEAN CORPUSCULAR VOLUME 89.3 fl (82.0-101.0); MEAN PLATELET VOLUME 8.8 fl (7.4-10.4); MONOCYTE # 0.5 10^3/ul (0.3-0.9); MONOCYTES % 5.8 % (0.0-11.0); NEUTROPHIL # 5.5 10^3/ul (1.6-7.5); NEUTROPHILS % 63.9 % (39.0-77.0); RED BLOOD COUNT 2.91 10^6/ul (4.20-5.40); RED CELL DISTRIBUTION WIDTH 13.8 % (11.5-14.5)
[2017-09-06 07:07] LABS: WHITE BLOOD COUNT 8.6 10^3/ul (4.8-10.8)
[2017-09-06 07:13] LABS: PLATELET COUNT 866 10^3/UL (140-415)
[2017-09-06 07:18] LABS: ANION GAP 13 (8-16); BLOOD UREA NITROGEN 34 mg/dl (7-20); CALCIUM 8.7 mg/dl (8.4-10.2); CARBON DIOXIDE 26 mmol/L (21-31); CHLORIDE 105 mmol/L (97-110); CREATININE 0.86 mg/dl (0.44-1.00); GLUCOSE 122 mg/dl (70-220); POTASSIUM 4.1 mmol/L (3.5-5.1); SODIUM 140 mmol/L (135-144)
[2017-09-06] MEDS: INSULIN ASPART [NOVOLOG] 3 ML PEN SC ×7 (08:00→21:07)
[2017-09-06] MEDS: DOCUSATE SODIUM 100 MG CAP PO ×2 (08:50→21:03)
[2017-09-06] MEDS: GEMFIBROZIL 600 MG TAB PO ×2 (08:51→21:03)
[2017-09-06] MEDS: ASPIRIN (EC) 81 MG TAB PO (08:51)
[2017-09-06] MEDS: oxyCODONE (CR) 10 MG TAB [oxyCONTIN] PO ×2 (08:51→21:03)
[2017-09-06] MEDS: COLLAGENASE 30 GM TUBE TOP (08:52)
[2017-09-06] MEDS: SODIUM HYPOCHLORITE 0.125% 473 ML BTL IRR (08:52)
[2017-09-06] MEDS: HEPARIN 5,000 UNIT/0.5 ML VIAL SC ×2 (08:59→21:09)
[2017-09-06] MEDS: INSULIN GLARGINE [LANtus] 3 ML PEN SC (21:08)
[2017-09-07] MEDS: AMPICILLIN/SULB 3 GM/NS (PMX) 100 ML IVPB ×4 (00:41→17:35)
[2017-09-07] MEDS: SOD CHLORIDE 0.9% 1,000 ML IV ×2 (01:33→15:13)
[2017-09-07] MEDS: ACCU-CHEK XX (02:00)
[2017-09-07 05:47] LABS: ADD MAN DIFF? NO
[2017-09-07 05:56] LABS: BASOPHIL # 0.1 10^3/ul (0.0-0.1); EOSINOPHILS # 0.4 10^3/ul (0.0-0.5); EOSINOPHILS % 4.3 % (0.0-7.0); HEMATOCRIT 26.2 % (37.0-47.0); HEMOGLOBIN 8.4 g/dl (12.0-16.0); LYMPHOCYTES # 2.3 10^3/ul (0.8-2.9); LYMPHOCYTES % 25.4 % (15.0-51.0); MEAN CORPUSCULAR HEMOGLOBIN 28.8 pg (29.0-33.0); MEAN CORPUSCULAR HGB CONC 32.1 g/dl (32.0-37.0); MEAN CORPUSCULAR VOLUME 89.7 fl (82.0-101.0); MONOCYTE # 0.6 10^3/ul (0.3-0.9); MONOCYTES % 6.2 % (0.0-11.0); NEUTROPHIL # 5.7 10^3/ul (1.6-7.5); NEUTROPHILS % 62.7 % (39.0-77.0); RED BLOOD COUNT 2.92 10^6/ul (4.20-5.40); RED CELL DISTRIBUTION WIDTH 13.8 % (11.5-14.5)
[2017-09-07 05:56] LABS: WHITE BLOOD COUNT 9.1 10^3/ul (4.8-10.8)
[2017-09-07 06:20] LABS: ANION GAP 12 (8-16); BLOOD UREA NITROGEN 25 mg/dl (7-20); CALCIUM 8.6 mg/dl (8.4-10.2); CARBON DIOXIDE 25 mmol/L (21-31); CHLORIDE 105 mmol/L (97-110); CREATININE 0.97 mg/dl (0.44-1.00); GLUCOSE 227 mg/dl (70-220); POTASSIUM 4.1 mmol/L (3.5-5.1); SODIUM 138 mmol/L (135-144)
[2017-09-07 06:28] LABS: PLATELET COUNT 810 10^3/UL (140-415)
[2017-09-07] MEDS: COLLAGENASE 30 GM TUBE TOP ×2 (06:30→09:00)
[2017-09-07] MEDS: SODIUM HYPOCHLORITE 0.125% 473 ML BTL IRR ×2 (06:31→08:48)
[2017-09-07] MEDS: DOCUSATE SODIUM 100 MG CAP PO ×2 (08:49→21:00)
[2017-09-07] MEDS: GEMFIBROZIL 600 MG TAB PO ×2 (08:49→21:40)
[2017-09-07] MEDS: oxyCODONE (CR) 10 MG TAB [oxyCONTIN] PO ×2 (08:49→21:40)
[2017-09-07] MEDS: INSULIN ASPART [NOVOLOG] 3 ML PEN SC ×7 (09:00→21:42)
[2017-09-07] MEDS: HEPARIN 5,000 UNIT/0.5 ML VIAL SC ×2 (09:01→21:42)
[2017-09-07] MEDS: ASPIRIN (EC) 81 MG TAB PO (09:02)
[2017-09-07] MEDS ORDERED: INSULIN GLARGINE [LANtus] 3 ML PEN SC (20:00)
[2017-09-07] MEDS: INSULIN GLARGINE [LANtus] 3 ML PEN SC (21:41)
[2017-09-08] MEDS: AMPICILLIN/SULB 3 GM/NS (PMX) 100 ML IVPB ×4 (00:12→17:15)
[2017-09-08] MEDS: ACCU-CHEK XX (02:13)
[2017-09-08] MEDS: SOD CHLORIDE 0.9% 1,000 ML IV ×2 (06:18→20:08)
[2017-09-08 07:16] LABS: ADD MAN DIFF? NO
[2017-09-08 07:21] LABS: BASOPHIL # 0.1 10^3/ul (0.0-0.1); EOSINOPHILS # 0.2 10^3/ul (0.0-0.5); EOSINOPHILS % 3.4 % (0.0-7.0); HEMATOCRIT 28.9 % (37.0-47.0); HEMOGLOBIN 9.3 g/dl (12.0-16.0); LYMPHOCYTES # 2.3 10^3/ul (0.8-2.9); LYMPHOCYTES % 33.3 % (15.0-51.0); MEAN CORPUSCULAR HEMOGLOBIN 28.9 pg (29.0-33.0); MEAN CORPUSCULAR HGB CONC 32.2 g/dl (32.0-37.0); MEAN CORPUSCULAR VOLUME 89.8 fl (82.0-101.0); MEAN PLATELET VOLUME 8.7 fl (7.4-10.4); MONOCYTE # 0.4 10^3/ul (0.3-0.9); MONOCYTES % 5.3 % (0.0-11.0); NEUTROPHILS % 56.9 % (39.0-77.0); RED BLOOD COUNT 3.22 10^6/ul (4.20-5.40); RED CELL DISTRIBUTION WIDTH 13.6 % (11.5-14.5)
[2017-09-08 07:22] LABS: PLATELET COUNT 911 10^3/UL (140-415)
[2017-09-08 07:45] LABS: ANION GAP 13 (8-16); BLOOD UREA NITROGEN 32 mg/dl (7-20); CARBON DIOXIDE 26 mmol/L (21-31); CHLORIDE 107 mmol/L (97-110); CREATININE 0.75 mg/dl (0.44-1.00); GLUCOSE 110 mg/dl (70-220); POTASSIUM 4.2 mmol/L (3.5-5.1); SODIUM 142 mmol/L (135-144)
[2017-09-08] MEDS: INSULIN ASPART [NOVOLOG] 3 ML PEN SC ×7 (08:00→20:10)
[2017-09-08] MEDS: GEMFIBROZIL 600 MG TAB PO ×2 (08:46→20:08)
[2017-09-08] MEDS: ASPIRIN (EC) 81 MG TAB PO (08:55)
[2017-09-08] MEDS: oxyCODONE (CR) 10 MG TAB [oxyCONTIN] PO ×2 (08:56→20:08)
[2017-09-08] MEDS: HEPARIN 5,000 UNIT/0.5 ML VIAL SC ×2 (08:56→20:10)
[2017-09-08] MEDS: DOCUSATE SODIUM 100 MG CAP PO ×2 (08:57→20:13)
[2017-09-08] MEDS: SODIUM HYPOCHLORITE 0.125% 473 ML BTL IRR ×2 (09:01→23:11)
[2017-09-08] MEDS: COLLAGENASE 30 GM TUBE TOP (09:01)
[2017-09-08] MEDS: HYDROmorphONE 2 MG TAB PO ×2 (12:30→21:53)
[2017-09-08] MEDS: INSULIN GLARGINE [LANtus] 3 ML PEN SC (20:08)
[2017-09-09] MEDS: AMPICILLIN/SULB 3 GM/NS (PMX) 100 ML IVPB ×4 (00:15→17:34)
[2017-09-09] MEDS: ACCU-CHEK XX (02:00)
[2017-09-09] MEDS: INSULIN ASPART [NOVOLOG] 3 ML PEN SC ×7 (08:00→21:32)
[2017-09-09] MEDS: ASPIRIN (EC) 81 MG TAB PO (08:21)
[2017-09-09] MEDS: DOCUSATE SODIUM 100 MG CAP PO ×2 (08:21→21:30)
[2017-09-09] MEDS: oxyCODONE (CR) 10 MG TAB [oxyCONTIN] PO ×2 (08:21→21:30)
[2017-09-09] MEDS: GEMFIBROZIL 600 MG TAB PO ×2 (08:21→21:30)
[2017-09-09] MEDS: HEPARIN 5,000 UNIT/0.5 ML VIAL SC ×2 (08:22→21:33)
[2017-09-09] MEDS: SOD CHLORIDE 0.9% 1,000 ML IV ×2 (10:45→15:30)
[2017-09-09] MEDS: HYDROmorphONE 2 MG TAB PO (13:54)
[2017-09-09] MEDS: COLLAGENASE 30 GM TUBE TOP (14:20)
[2017-09-09] MEDS: SODIUM HYPOCHLORITE 0.125% 473 ML BTL IRR ×2 (14:20→21:34)
[2017-09-09] MEDS: INSULIN GLARGINE [LANtus] 3 ML PEN SC (21:31)
[2017-09-10] MEDS: AMPICILLIN/SULB 3 GM/NS (PMX) 100 ML IVPB ×5 (00:38→23:35)
[2017-09-10] MEDS: ACCU-CHEK XX (02:00)
[2017-09-10 05:36] LABS: ADD MAN DIFF? NO
[2017-09-10] MEDS: HYDROmorphONE 2 MG TAB PO ×2 (05:42→19:58)
[2017-09-10 05:55] LABS: WHITE BLOOD COUNT 8.7 10^3/ul (4.8-10.8)
[2017-09-10 05:55] LABS: BASOPHIL # 0.1 10^3/ul (0.0-0.1); BASOPHILS % 1.1 % (0.0-2.0); EOSINOPHILS # 0.3 10^3/ul (0.0-0.5); EOSINOPHILS % 3.9 % (0.0-7.0); HEMATOCRIT 26.2 % (37.0-47.0); HEMOGLOBIN 8.5 g/dl (12.0-16.0); LYMPHOCYTES # 2.1 10^3/ul (0.8-2.9); MEAN CORPUSCULAR HEMOGLOBIN 28.9 pg (29.0-33.0); MEAN CORPUSCULAR HGB CONC 32.4 g/dl (32.0-37.0); MEAN CORPUSCULAR VOLUME 89.1 fl (82.0-101.0); MEAN PLATELET VOLUME 8.9 fl (7.4-10.4); MONOCYTE # 0.5 10^3/ul (0.3-0.9); MONOCYTES % 6.1 % (0.0-11.0); NEUTROPHIL # 5.6 10^3/ul (1.6-7.5); NEUTROPHILS % 64.6 % (39.0-77.0); PLATELET COUNT 834 10^3/UL (140-415); RED BLOOD COUNT 2.94 10^6/ul (4.20-5.40); RED CELL DISTRIBUTION WIDTH 13.2 % (11.5-14.5)
[2017-09-10 06:48] LABS: ANION GAP 15 (8-16); BLOOD UREA NITROGEN 32 mg/dl (7-20); CALCIUM 8.8 mg/dl (8.4-10.2); CARBON DIOXIDE 22 mmol/L (21-31); CHLORIDE 106 mmol/L (97-110); CREATININE 0.86 mg/dl (0.44-1.00); GLUCOSE 198 mg/dl (70-220); POTASSIUM 3.9 mmol/L (3.5-5.1); SODIUM 139 mmol/L (135-144)
[2017-09-10] MEDS: INSULIN ASPART [NOVOLOG] 3 ML PEN SC ×7 (08:00→20:55)
[2017-09-10] MEDS: ASPIRIN (EC) 81 MG TAB PO (08:46)
[2017-09-10] MEDS: GEMFIBROZIL 600 MG TAB PO ×2 (08:46→20:53)
[2017-09-10] MEDS: DOCUSATE SODIUM 100 MG CAP PO ×2 (08:46→20:53)
[2017-09-10] MEDS: oxyCODONE (CR) 10 MG TAB [oxyCONTIN] PO ×2 (08:46→20:53)
[2017-09-10] MEDS: HEPARIN 5,000 UNIT/0.5 ML VIAL SC ×2 (08:47→20:56)
[2017-09-10] MEDS: SODIUM HYPOCHLORITE 0.125% 473 ML BTL IRR ×2 (13:40→21:03)
[2017-09-10] MEDS: COLLAGENASE 30 GM TUBE TOP (13:40)
[2017-09-10] MEDS: SOD CHLORIDE 0.9% 1,000 ML IV (16:39)
[2017-09-10] MEDS: INSULIN GLARGINE [LANtus] 3 ML PEN SC (20:04)
[2017-09-11] MEDS: ACCU-CHEK XX (02:00)
[2017-09-11] MEDS: SOD CHLORIDE 0.9% 1,000 ML IV ×4 (05:39→20:23)
[2017-09-11] MEDS: AMPICILLIN/SULB 3 GM/NS (PMX) 100 ML IVPB ×3 (05:48→17:29)
[2017-09-11] MEDS: INSULIN ASPART [NOVOLOG] 3 ML PEN SC ×7 (08:00→20:14)
[2017-09-11] MEDS: GEMFIBROZIL 600 MG TAB PO ×2 (08:43→20:19)
[2017-09-11] MEDS: oxyCODONE (CR) 10 MG TAB [oxyCONTIN] PO ×2 (08:44→20:19)
[2017-09-11] MEDS: DOCUSATE SODIUM 100 MG CAP PO ×2 (08:44→20:22)
[2017-09-11] MEDS: ASPIRIN (EC) 81 MG TAB PO (08:46)
[2017-09-11] MEDS: HEPARIN 5,000 UNIT/0.5 ML VIAL SC ×2 (08:47→20:18)
[2017-09-11] MEDS: SODIUM HYPOCHLORITE 0.125% 473 ML BTL IRR ×2 (14:43→20:20)
[2017-09-11] MEDS: COLLAGENASE 30 GM TUBE TOP (14:43)
[2017-09-11] MEDS: HYDROmorphONE 2 MG TAB PO (18:26)
[2017-09-11] MEDS: INSULIN GLARGINE [LANtus] 3 ML PEN SC (20:00)
[2017-09-11] MEDS: GLUCOSE GEL 15 GRAM TUBE BUCCAL (20:35)
[2017-09-12] MEDS: AMPICILLIN/SULB 3 GM/NS (PMX) 100 ML IVPB ×3 (00:31→12:18)
[2017-09-12] MEDS: ACCU-CHEK XX (02:00)
[2017-09-12 05:41] LABS: ADD MAN DIFF? NO
[2017-09-12 05:45] LABS: WHITE BLOOD COUNT 6.4 10^3/ul (4.8-10.8)
[2017-09-12 05:45] LABS: BASOPHIL # 0.1 10^3/ul (0.0-0.1); BASOPHILS % 1.6 % (0.0-2.0); EOSINOPHILS # 0.5 10^3/ul (0.0-0.5); EOSINOPHILS % 7.4 % (0.0-7.0); HEMATOCRIT 27.7 % (37.0-47.0); HEMOGLOBIN 8.8 g/dl (12.0-16.0); LYMPHOCYTES # 2.3 10^3/ul (0.8-2.9); LYMPHOCYTES % 35.2 % (15.0-51.0); MEAN CORPUSCULAR HEMOGLOBIN 28.7 pg (29.0-33.0); MEAN CORPUSCULAR HGB CONC 31.8 g/dl (32.0-37.0); MEAN CORPUSCULAR VOLUME 90.2 fl (82.0-101.0); MEAN PLATELET VOLUME 8.8 fl (7.4-10.4); MONOCYTE # 0.5 10^3/ul (0.3-0.9); MONOCYTES % 7.2 % (0.0-11.0); NEUTROPHIL # 3.1 10^3/ul (1.6-7.5); NEUTROPHILS % 48.3 % (39.0-77.0); RED BLOOD COUNT 3.07 10^6/ul (4.20-5.40); RED CELL DISTRIBUTION WIDTH 13.3 % (11.5-14.5)
[2017-09-12 06:05] LABS: ANION GAP 11 (8-16); BLOOD UREA NITROGEN 25 mg/dl (7-20); CALCIUM 8.8 mg/dl (8.4-10.2); CARBON DIOXIDE 28 mmol/L (21-31); CHLORIDE 105 mmol/L (97-110); CREATININE 0.85 mg/dl (0.44-1.00); GLUCOSE 219 mg/dl (70-220); POTASSIUM 4.4 mmol/L (3.5-5.1); SODIUM 140 mmol/L (135-144)
[2017-09-12 06:37] LABS: PLATELET COUNT 891 10^3/UL (140-415)
[2017-09-12] MEDS ORDERED: hydrALAzine 20 MG INJ IV (08:30)
[2017-09-12] MEDS: INSULIN ASPART [NOVOLOG] 3 ML PEN SC ×7 (08:34→20:46)
[2017-09-12] MEDS: SODIUM HYPOCHLORITE 0.125% 473 ML BTL IRR ×2 (08:44→20:52)
[2017-09-12] MEDS: GEMFIBROZIL 600 MG TAB PO ×2 (08:45→20:44)
[2017-09-12] MEDS: oxyCODONE (CR) 10 MG TAB [oxyCONTIN] PO ×2 (08:45→20:44)
[2017-09-12] MEDS: DOCUSATE SODIUM 100 MG CAP PO ×2 (08:45→20:44)
[2017-09-12] MEDS: HEPARIN 5,000 UNIT/0.5 ML VIAL SC ×2 (08:47→20:46)
[2017-09-12] MEDS: ASPIRIN (EC) 81 MG TAB PO (08:51)
[2017-09-12] MEDS: COLLAGENASE 30 GM TUBE TOP (12:19)
[2017-09-12] MEDS ORDERED: hydrALAzine 20 MG INJ ZFS (14:30)
[2017-09-12] MEDS: INSULIN GLARGINE [LANtus] 3 ML PEN SC (20:44)
[2017-09-12] MEDS: SOD CHLORIDE 0.9% 1,000 ML IV (21:09)
[2017-09-13] MEDS: ACCU-CHEK XX (02:00)
[2017-09-13 05:25] LABS: ADD MAN DIFF? NO
[2017-09-13 05:31] LABS: BASOPHIL # 0.1 10^3/ul (0.0-0.1); BASOPHILS % 1.3 % (0.0-2.0); EOSINOPHILS # 0.6 10^3/ul (0.0-0.5); HEMATOCRIT 26.4 % (37.0-47.0); HEMOGLOBIN 8.8 g/dl (12.0-16.0); LYMPHOCYTES # 2.8 10^3/ul (0.8-2.9); LYMPHOCYTES % 38.9 % (15.0-51.0); MEAN CORPUSCULAR HGB CONC 33.3 g/dl (32.0-37.0); MEAN CORPUSCULAR VOLUME 87.1 fl (82.0-101.0); MEAN PLATELET VOLUME 8.7 fl (7.4-10.4); MONOCYTE # 0.5 10^3/ul (0.3-0.9); MONOCYTES % 6.3 % (0.0-11.0); NEUTROPHIL # 3.2 10^3/ul (1.6-7.5); NEUTROPHILS % 45.2 % (39.0-77.0); PLATELET COUNT 844 10^3/UL (140-415); RED BLOOD COUNT 3.03 10^6/ul (4.20-5.40); RED CELL DISTRIBUTION WIDTH 13.4 % (11.5-14.5)
[2017-09-13 05:31] LABS: WHITE BLOOD COUNT 7.1 10^3/ul (4.8-10.8)
[2017-09-13] MEDS: CEPHALEXIN 500 MG CAP PO ×2 (05:43→13:29)
[2017-09-13 06:06] LABS: ANION GAP 12 (8-16); BLOOD UREA NITROGEN 19 mg/dl (7-20); CARBON DIOXIDE 25 mmol/L (21-31); CHLORIDE 105 mmol/L (97-110); CREATININE 0.78 mg/dl (0.44-1.00); GLUCOSE 152 mg/dl (70-220); POTASSIUM 3.9 mmol/L (3.5-5.1); SODIUM 138 mmol/L (135-144)
[2017-09-13] MEDS: INSULIN ASPART [NOVOLOG] 3 ML PEN SC ×6 (08:01→17:47)
[2017-09-13] MEDS: ASPIRIN (EC) 81 MG TAB PO (08:29)
[2017-09-13] MEDS: AMOXICILLIN/CLAV 875 MG TAB PO (08:29)
[2017-09-13] MEDS: GEMFIBROZIL 600 MG TAB PO (08:29)
[2017-09-13] MEDS: DOCUSATE SODIUM 100 MG CAP PO ×2 (08:29→08:39)
[2017-09-13] MEDS: HEPARIN 5,000 UNIT/0.5 ML VIAL SC (08:30)
[2017-09-13] MEDS: oxyCODONE (CR) 10 MG TAB [oxyCONTIN] PO (08:30)
[2017-09-13] MEDS: SODIUM HYPOCHLORITE 0.125% 473 ML BTL IRR (08:32)
[2017-09-13] MEDS: COLLAGENASE 30 GM TUBE TOP (08:33)
== END 2017-09-13 19:19 | disposition home health service (06) | DRG 853 ==
LOC: MS3 18:50 → PP2 08-26 15:40 → E/R 15:07 → MS3 08-24 18:35
PROC: 0JBL0ZZ Excision of Right Upper Leg Subcutaneous Tissue and Fascia, Open Approach (ICD-10-PCS; principal; 2017-09-02 17:30)
PROC: 0H9HXZX Drainage of Right Upper Leg Skin, External Approach, Diagnostic (ICD-10-PCS; 2017-09-02 17:30)
PROC: 30233N1 Transfusion of Nonautologous Red Blood Cells into Peripheral Vein, Percutaneous Approach (ICD-10-PCS; 2017-09-02 17:54)
DX: A41.9 Sepsis, unspecified organism (principal); M72.6 Necrotizing fasciitis; M00.9 Pyogenic arthritis, unspecified; L03.115 Cellulitis of right lower limb; N17.9 Acute kidney failure, unspecified; L02.415 Cutaneous abscess of right lower limb; M00.861 Arthritis due to other bacteria, right knee; I10 Essential (primary) hypertension; E11.65 Type 2 diabetes mellitus with hyperglycemia; D50.9 Iron deficiency anemia, unspecified; M25.461 Effusion, right knee; E78.5 Hyperlipidemia, unspecified; I73.9 Peripheral vascular disease, unspecified; R65.20 Severe sepsis without septic shock; S81.802A Unspecified open wound, left lower leg, initial encounter; D47.3 Essential (hemorrhagic) thrombocythemia; R19.7 Diarrhea, unspecified; Z79.4 Long term (current) use of insulin; E03.9 Hypothyroidism, unspecified
CPT/HCPCS: 36430; 71045; 73562; 73721; 80048; 80053; 80307; 81001; 82550; 82962; 83036; 83605; 83690; 83735; 84100; 84145; 85025; 85610; 85730; 86140; 86850; 86900; 86901; 86920; 87040; 87070; 87075; 87116; 88304; 89060; 93922; 96372; 96374; 96375; 99285-25

== ENCOUNTER 2018-04-17 18:35 | Inpatient (IN) | payer OTHER ==
[2018-04-17] MEDS: SODIUM CHLORIDE 0.9% 1L BAG IV* (19:55)
[2018-04-17 20:41] LABS: ABNORMAL IP MESSAGE 1; HEMATOCRIT 24.4 % (37.0-47.0); HEMOGLOBIN 8.2 g/dl (12.0-16.0); MEAN CORPUSCULAR HEMOGLOBIN 29.2 pg (29.0-33.0); MEAN CORPUSCULAR HGB CONC 33.6 g/dl (32.0-37.0); MEAN CORPUSCULAR VOLUME 86.8 fl (82.0-101.0); MEAN PLATELET VOLUME 10.4 fl (7.4-10.4); NUCLEATED RED BLOOD CELLS% 0.1 /100WBC (0.0-0.0); PLATELET COUNT 798 10^3/UL (140-415); POSITIVE DIFF @See below; RED BLOOD COUNT 2.81 10^6/ul (4.20-5.40); RED CELL DISTRIBUTION WIDTH 14.5 % (11.5-14.5)
[2018-04-17 20:42] LABS: ADD MAN DIFF? YES; PATH REVIEW? YES
[2018-04-17 20:50] LABS: INR 1.08; PROTIME 14.1 Sec (11.9-14.9); PT RATIO 1.1
[2018-04-17 20:51] LABS: PARTIAL THROMBOPLASTIN TIME 21.7 Sec (25.0-35.0)
[2018-04-17] MEDS ORDERED: PIPER-TAZO 3.375 GM IV (PMX) 100 ML IVPB (20:52)
[2018-04-17 20:53] LABS: LACTIC ACID 1.9 mmol/L (0.5-2.0)
[2018-04-17 21:03] LABS: ALANINE AMINOTRANSFERASE 11 IU/L (13-69); ALBUMIN/GLOBULIN RATIO 0.71; ALKALINE PHOSPHATASE 445 IU/L (42-121); ANION GAP 18 (8-16); ASPARTATE AMINO TRANSFERASE 14 IU/L (15-46); BILIRUBIN,INDIRECT 0.1 mg/dl (0-1.1); BILIRUBIN,TOTAL 0.1 mg/dl (0.2-1.3); BLOOD UREA NITROGEN 49 mg/dl (7-20); CALCIUM 8.7 mg/dl (8.4-10.2); CARBON DIOXIDE 20 mmol/L (21-31); CHLORIDE 91 mmol/L (97-110); CREATININE 1.11 mg/dl (0.44-1.00); POTASSIUM 4.6 mmol/L (3.5-5.1); SODIUM 124 mmol/L (135-144); TOTAL PROTEIN 7.2 g/dl (6.1-8.1)
[2018-04-17 21:14] LABS: TROPONIN-I < 0.012 ng/ml (0.000-0.120)
[2018-04-17] MEDS: MEROPENEM 1 GM/50ML(PMX) 50 ML IVPB (21:27)
[2018-04-17 21:29] LABS: ANISOCYTOSIS 1+ (0-0); BAND NEUTROPHILS #M 0.7 10^3/ul (0.0-0.6); BAND NEUTROPHILS % (M) 3 % (0-4); EOSINOPHILS % (M) 2 % (0-7); GIANT THROMBO% (M) 1 % (0-0); LYMPHOCYTES #M 1.9 10^3/ul (0.8-2.9); LYMPHOCYTES % (M) 8 % (15-51); MONOCYTE #M 0.2 10^3/ul (0.3-0.9); MONOCYTES % (M) 1 % (0-11); PLATELET ESTIMATE INCREASED; REACTIVE LYMPHOCYTES #M 0.2 10^3/ul (0.0-0.0); REACTIVE LYMPHOCYTES% (M) 1 % (0-0); SEG NEUT #M 20.6 10^3/ul (1.6-7.5); SEGMENTED NEUTROPHILS (M) % 85 % (39-77); SMUDGE%M 20 % (0-0)
[2018-04-17 22:10] LABS: ADD UMIC NO; UR ASCORBIC ACID NEGATIVE (NEGATIVE); UR BILIRUBIN (Dip) NEGATIVE (NEGATIVE); UR BLOOD (Dip) NEGATIVE (NEGATIVE); UR CLARITY CLEAR (CLEAR); UR COLOR YELLOW (YELLOW); UR GLUCOSE (Dip) 3+ mg/dL (NEGATIVE); UR KETONES (Dip) TRACE mg/dL (NEGATIVE); UR LEUKOCYTE ESTERASE (Dip) NEGATIVE Leu/ul (NEGATIVE); UR NITRITE (Dip) NEGATIVE (NEGATIVE); UR SPECIFIC GRAVITY (Dip) 1.021 (1.003-1.030); UR TOTAL PROTEIN (Dip) NEGATIVE (NEGATIVE); UR UROBILINOGEN (Dip) NEGATIVE (NEGATIVE)
[2018-04-17 22:29] LABS: HEMOGLOBIN A1C 13.5 % (0-5.9)
[2018-04-17] MEDS: CLINDAMYCIN 900 MG/D5W (PMX) 50 ML IVPB (22:37)
[2018-04-17 22:50] LABS: LACTIC ACID 1.9 mmol/L (0.5-2.0)
[2018-04-17 23:09] LABS: AADO2 Arterial 52.5 mmHg (7.0-24.0); Allen Test ACCEPTAB; Arterial Base Excess -1.7 mmol/L (-3.0-3); Arterial Blood Gas Oxygen Sat 88.8 mmHG (95.0-98.0); Arterial COHb 0.2 % (0.0-3.0); Arterial Fraction of Oxyhgb 88.4 % (93.0-99.0); Arterial HCO3 22.3 mmol/L (22.0-26.0); Arterial MetHb 0.2 % (0.0-1.5); Arterial Total Hemglobin 8.7 g/dl (12.0-18.0); Arterial pCO2 34.9 mmhg (35-45); MODE ROOM AIR; Site Left Radial
[2018-04-17] MEDS: INSULIN REGULAR, HUMAN 100 UNIT in SOD CHLORIDE 0.9% 100 ML IV (23:10)
[2018-04-18 00:04] LABS: LACTIC ACID 1.1 mmol/L (0.5-2.0)
[2018-04-18] MEDS: ONDANSETRON 4 MG INJ IV (00:13)
[2018-04-18] MEDS: HYDROmorphONE 2 MG/ML SYG IM (00:14)
[2018-04-18 00:43] LABS: ANION GAP 15 (8-16); BLOOD UREA NITROGEN 41 mg/dl (7-20); CALCIUM 8.5 mg/dl (8.4-10.2); CARBON DIOXIDE 22 mmol/L (21-31); CHLORIDE 98 mmol/L (97-110); CREATININE 1.04 mg/dl (0.44-1.00); POTASSIUM 3.8 mmol/L (3.5-5.1); SODIUM 131 mmol/L (135-144)
[2018-04-18 00:52] LABS: GLUCOSE 538 mg/dl (70-220)
[2018-04-18] MEDS ORDERED: DEXTROSE 50% 50 ML SYRINGE IV (01:00)
[2018-04-18] MEDS ORDERED: CEFEPIME 1GM/50 ML (PMX) 50 ML IVPB (01:00)
[2018-04-18] MEDS ORDERED: ONDANSETRON 4 MG INJ IV ×2 (01:00→17:30)
[2018-04-18] MEDS: ACCU-CHEK XX ×10 (01:00→10:46)
[2018-04-18] MEDS ORDERED: INSULIN HUMAN REGULAR 100 UNIT in SOD CHLORIDE 0.9% 99 ML IV (01:00)
[2018-04-18 01:17] LABS: ERYTHROCYTE SEDIMENTATION RATE 127 mm/Hr (0-20)
[2018-04-18] MEDS: SOD CHLORIDE 0.9% 1,000 ML IV ×3 (02:22→21:35)
[2018-04-18] MEDS: LINEZOLID 600 MG/D5W (PMX) 300 ML IVPB ×3 (02:25→21:15)
[2018-04-18 03:24] LABS: ANION GAP 15 (8-16); BLOOD UREA NITROGEN 39 mg/dl (7-20); CALCIUM 8.8 mg/dl (8.4-10.2); CARBON DIOXIDE 22 mmol/L (21-31); CHLORIDE 101 mmol/L (97-110); CREATININE 1.05 mg/dl (0.44-1.00); GLUCOSE 286 mg/dl (70-220); POTASSIUM 3.8 mmol/L (3.5-5.1); SODIUM 134 mmol/L (135-144)
[2018-04-18 05:23] LABS: ADD MAN DIFF? NO
[2018-04-18 05:33] LABS: ABNORMAL IP MESSAGE 1; BASOPHILS % 0.2 % (0.0-2.0); EOSINOPHILS # 0.4 10^3/ul (0.0-0.5); EOSINOPHILS % 1.7 % (0.0-7.0); HEMATOCRIT 22.1 % (37.0-47.0); HEMOGLOBIN 7.3 g/dl (12.0-16.0); LYMPHOCYTES # 1.8 10^3/ul (0.8-2.9); LYMPHOCYTES % 7.6 % (15.0-51.0); MEAN CORPUSCULAR HEMOGLOBIN 28.7 pg (29.0-33.0); MEAN PLATELET VOLUME 9.9 fl (7.4-10.4); MONOCYTE # 0.8 10^3/ul (0.3-0.9); MONOCYTES % 3.3 % (0.0-11.0); NEUTROPHIL # 20.4 10^3/ul (1.6-7.5); NEUTROPHILS % 85.4 % (39.0-77.0); NUCLEATED RED BLOOD CELLS% 0.1 /100WBC (0.0-0.0); PLATELET COUNT 835 10^3/UL (140-415); RED BLOOD COUNT 2.54 10^6/ul (4.20-5.40); RED CELL DISTRIBUTION WIDTH 14.6 % (11.5-14.5)
[2018-04-18 05:33] LABS: WHITE BLOOD COUNT 23.9 10^3/ul (4.8-10.8)
[2018-04-18 05:44] LABS: POSITIVE DIFF @See below
[2018-04-18 05:56] LABS: IRON 46 ug/dl (35-150)
[2018-04-18 06:01] LABS: ALANINE AMINOTRANSFERASE 12 IU/L (13-69); ALBUMIN 2.6 g/dl (3.3-4.9); ALBUMIN/GLOBULIN RATIO 0.63; ALKALINE PHOSPHATASE 359 IU/L (42-121); ANION GAP 13 (8-16); ASPARTATE AMINO TRANSFERASE 11 IU/L (15-46); BILIRUBIN,INDIRECT 0.1 mg/dl (0-1.1); BILIRUBIN,TOTAL 0.1 mg/dl (0.2-1.3); BLOOD UREA NITROGEN 36 mg/dl (7-20); CALCIUM 8.8 mg/dl (8.4-10.2); CARBON DIOXIDE 26 mmol/L (21-31); CHLORIDE 101 mmol/L (97-110); CHOL/HDL RATIO 14.6 RATIO; CHOLESTEROL 161 mg/dl (100-200); GLUCOSE 174 mg/dl (70-220); HDL CHOLESTEROL 11 mg/dl (34-88); LDL CHOLESTEROL,CALCULATED 95 mg/dl; PHOSPHORUS 3.6 mg/dl (2.5-4.9); SODIUM 136 mmol/L (135-144); TOTAL PROTEIN 6.7 g/dl (6.1-8.1); TRIGLYCERIDES 277 mg/dl (0-149)
[2018-04-18 06:04] LABS: % IRON SATURATION 25 % SAT (22-52); TOTAL IRON BINDING CAPACITY 182 ug/dl (241-421)
[2018-04-18] MEDS: DEXTROSE 5%-0.9% NACL 1,000 ML IV (06:10)
[2018-04-18] MEDS ORDERED: ONDANSETRON 4 MG INJ (07:00)
[2018-04-18] MEDS ORDERED: DEXAMETHASONE 4 MG/ML 1 ML INJ (07:00)
[2018-04-18] MEDS ORDERED: SILVER SULFADIAZINE 1% 400 GM CR TOP (09:00)
[2018-04-18] MEDS: CEFEPIME 1GM/50 ML (PMX) 50 ML IVPB (09:03)
[2018-04-18] MEDS: FLUCONAZOLE 200 MG TAB PO (09:03)
[2018-04-18] MEDS: FAMOTIDINE 20 MG INJ IV ×2 (09:04→21:16)
[2018-04-18] MEDS: HEPARIN 5,000 UNIT/0.5 ML VIAL SC ×2 (09:05→21:17)
[2018-04-18] MEDS: SODIUM HYPOCHLORITE (1/40) 1 APPLIC BTL IRR ×3 (12:30→21:00)
[2018-04-18] MEDS: SILVER SULFADIAZINE 1% 25 GM CR TOP ×3 (12:31→21:00)
[2018-04-18] MEDS: PIPER-TAZO 3.375 GM IV (PMX) 100 ML IVPB ×2 (12:31→17:18)
[2018-04-18] MEDS: INSULIN ASPART [NOVOLOG] 3 ML PEN SC ×5 (12:33→21:25)
[2018-04-18] MEDS: INSULIN GLARGINE [LANTus] (100 UNITS/ML) SYG SC (12:35)
[2018-04-18 12:36] LABS: HEMATOCRIT 21.1 % (37.0-47.0); HEMOGLOBIN 7.1 g/dl (12.0-16.0)
[2018-04-18] MEDS: SOD CHLORIDE 0.9% 250 ML IV* (13:45)
[2018-04-18] MEDS: CLINDAMYCIN 900 MG/D5W (PMX) 50 ML IVPB ×2 (13:51→22:07)
[2018-04-18] MEDS ORDERED: HYDROmorphONE 1 MG/5 ML IV SYRINGE IV ×3 (17:30)
[2018-04-18] MEDS ORDERED: MEPERIDINE 25 MG INJ IV (17:30)
[2018-04-18] MEDS ORDERED: DIPHENHYDRAMINE 50 MG INJ IV (17:30)
[2018-04-18] MEDS ORDERED: IPRATROPIUM (NEB) 0.5 MG/2.5 ML AMP HHN (17:30)
[2018-04-18] MEDS ORDERED: LABETALOL HCL 20MG INJ IV (17:30)
[2018-04-18] MEDS ORDERED: TRIMETHOBENZAMIDE 100 MG/ML VIAL IM (17:30)
[2018-04-18] MEDS ORDERED: hydrALAzine 20 MG INJ IV (17:30)
[2018-04-18] MEDS ORDERED: OXYCODONE/ACETAMINOPHEN (5/325) TAB PO ×2 (17:30)
[2018-04-18] MEDS ORDERED: ALBUTEROL 0.083% (NEB) 2.5 MG/3 ML AMP HHN (17:30)
[2018-04-18] MEDS ORDERED: MIDAZOLAM 1 MG/ML 2 ML INJ IV (17:30)
[2018-04-18] MEDS ORDERED: FENTAnyl 50 MCG/ML VIAL IV ×2 (17:30)
[2018-04-18] MEDS ORDERED: EPHEDrine SULFATE 50 MG/5 ML SYG IV (17:30)
[2018-04-18] MEDS ORDERED: BUPIVACAINE 0.5% (SDV) 30 ML INJ (17:51)
[2018-04-18] MEDS ORDERED: LIDOCAINE 2% (MDV) 20 ML INJ (17:52)
[2018-04-18] MEDS: BACITRACIN 50000 UNITS INJ (18:21)
[2018-04-18] MEDS: POLYMYXIN B 500000 UNIT INJ (18:21)
[2018-04-18] MEDS ORDERED: PROPOFOL 20 ML (18:52)
[2018-04-18] MEDS ORDERED: LIDOCAINE 100 MG SYRINGE (18:52)
[2018-04-18] MEDS ORDERED: SUGAMMADEX SODIUM 200 MG/2 ML VIAL IV (18:52)
[2018-04-18] MEDS ORDERED: ROCURONIUM 50 MG INJ (18:52)
[2018-04-18] MEDS: FENTAnyl 50 MCG/ML VIAL IV ×2 (19:14→19:59)
[2018-04-18] MEDS: HYDROmorphONE 2 MG/ML SYG IV (19:47)
[2018-04-18] MEDS: ATORVASTATIN 20 MG TAB PO (21:31)
[2018-04-18 23:28] LABS: IMMEDIATE SPIN CROSSMATCH 1 2
[2018-04-19] MEDS: PIPER-TAZO 3.375 GM IV (PMX) 100 ML IVPB ×4 (00:42→17:42)
[2018-04-19] MEDS: ACCU-CHEK XX (02:14)
[2018-04-19] MEDS: HYDROmorphONE 1 MG/ML SYG IV ×4 (04:43→23:23)
[2018-04-19] MEDS: CLINDAMYCIN 900 MG/D5W (PMX) 50 ML IVPB ×2 (05:19→14:16)
[2018-04-19 06:21] LABS: WHITE BLOOD COUNT 28.5 10^3/ul (4.8-10.8)
[2018-04-19 06:21] LABS: ABNORMAL IP MESSAGE 1; HEMATOCRIT 27.3 % (37.0-47.0); MEAN CORPUSCULAR HEMOGLOBIN 28.9 pg (29.0-33.0); MEAN CORPUSCULAR VOLUME 87.8 fl (82.0-101.0); MEAN PLATELET VOLUME 9.9 fl (7.4-10.4); PLATELET COUNT 729 10^3/UL (140-415); RED BLOOD COUNT 3.11 10^6/ul (4.20-5.40); RED CELL DISTRIBUTION WIDTH 14.7 % (11.5-14.5)
[2018-04-19 06:24] LABS: POSITIVE DIFF @See below
[2018-04-19 06:25] LABS: ADD MAN DIFF? YES
[2018-04-19] MEDS: SOD CHLORIDE 0.9% 1,000 ML IV ×4 (06:56→21:54)
[2018-04-19 06:58] LABS: ANION GAP 15 (8-16); BLOOD UREA NITROGEN 24 mg/dl (7-20); CALCIUM 7.8 mg/dl (8.4-10.2); CARBON DIOXIDE 21 mmol/L (21-31); CHLORIDE 102 mmol/L (97-110); CREATININE 0.84 mg/dl (0.44-1.00); GLUCOSE 323 mg/dl (70-220); POTASSIUM 4.1 mmol/L (3.5-5.1); SODIUM 134 mmol/L (135-144)
[2018-04-19 08:12] LABS: ANISOCYTOSIS 1+ (0-0); BAND NEUTROPHILS #M 2.2 10^3/ul (0.0-0.6); BAND NEUTROPHILS % (M) 8 % (0-4); HYPOCHROMASIA 1+ (0-0); LYMPHOCYTES #M 0.8 10^3/ul (0.8-2.9); LYMPHOCYTES % (M) 3 % (15-51); MONOCYTE #M 0.2 10^3/ul (0.3-0.9); MONOCYTES % (M) 1 % (0-11); MYELOCYTES #M 0.2 10^3/ul (0.0-0.0); MYELOCYTES % (M) 1 % (0-0); PLATELET ESTIMATE INCREASED; SEG NEUT #M 25.4 10^3/ul (1.6-7.5); SEGMENTED NEUTROPHILS (M) % 87 % (39-77)
[2018-04-19 08:18] LABS: C-REACTIVE PROTEIN 22.8 mg/dl (0.0-0.9)
[2018-04-19] MEDS: INSULIN ASPART [NOVOLOG] 3 ML PEN SC ×7 (08:27→21:00)
[2018-04-19] MEDS: FAMOTIDINE 20 MG INJ IV ×2 (08:45→21:53)
[2018-04-19] MEDS: LINEZOLID 600 MG/D5W (PMX) 300 ML IVPB ×2 (08:46→23:11)
[2018-04-19] MEDS: HEPARIN 5,000 UNIT/0.5 ML VIAL SC ×2 (08:47→23:17)
[2018-04-19] MEDS: INSULIN GLARGINE [LANTus] (100 UNITS/ML) SYG SC (08:48)
[2018-04-19] MEDS: SODIUM HYPOCHLORITE (1/40) 1 APPLIC BTL IRR (08:48)
[2018-04-19] MEDS: SILVER SULFADIAZINE 1% 25 GM CR TOP ×3 (08:49→23:13)
[2018-04-19 11:48] LABS: GLUCOSE 710 mg/dl (70-220)
[2018-04-19] MEDS: ACETAMINOPHEN 650MG/20.3ML CUP PO (16:28)
[2018-04-19] MEDS: ATORVASTATIN 20 MG TAB PO (21:53)
[2018-04-19] MEDS: HYDROCODONE/APAP (5/325) TAB PO (21:53)
[2018-04-20] MEDS: PIPER-TAZO 3.375 GM IV (PMX) 100 ML IVPB ×4 (00:18→18:18)
[2018-04-20] MEDS: CLINDAMYCIN 900 MG/D5W (PMX) 50 ML IVPB ×4 (00:19→22:41)
[2018-04-20] MEDS: ACCU-CHEK XX (02:52)
[2018-04-20 05:34] LABS: ADD MAN DIFF? NO
[2018-04-20 05:38] LABS: WHITE BLOOD COUNT 22.3 10^3/ul (4.8-10.8)
[2018-04-20 05:38] LABS: BASOPHIL # 0.1 10^3/ul (0.0-0.1); BASOPHILS % 0.3 % (0.0-2.0); EOSINOPHILS # 0.7 10^3/ul (0.0-0.5); EOSINOPHILS % 3.3 % (0.0-7.0); HEMATOCRIT 26.3 % (37.0-47.0); HEMOGLOBIN 8.6 g/dl (12.0-16.0); LYMPHOCYTES # 1.7 10^3/ul (0.8-2.9); LYMPHOCYTES % 7.7 % (15.0-51.0); MEAN CORPUSCULAR HEMOGLOBIN 28.9 pg (29.0-33.0); MEAN CORPUSCULAR HGB CONC 32.7 g/dl (32.0-37.0); MEAN CORPUSCULAR VOLUME 88.3 fl (82.0-101.0); MEAN PLATELET VOLUME 9.8 fl (7.4-10.4); MONOCYTE # 0.7 10^3/ul (0.3-0.9); NEUTROPHIL # 18.8 10^3/ul (1.6-7.5); NEUTROPHILS % 84.6 % (39.0-77.0); PLATELET COUNT 705 10^3/UL (140-415); RED BLOOD COUNT 2.98 10^6/ul (4.20-5.40); RED CELL DISTRIBUTION WIDTH 15.2 % (11.5-14.5)
[2018-04-20 06:05] LABS: ANION GAP 11 (8-16); BLOOD UREA NITROGEN 19 mg/dl (7-20); CARBON DIOXIDE 23 mmol/L (21-31); CHLORIDE 103 mmol/L (97-110); CREATININE 0.98 mg/dl (0.44-1.00); GLUCOSE 119 mg/dl (70-220); POTASSIUM 3.5 mmol/L (3.5-5.1); SODIUM 133 mmol/L (135-144)
[2018-04-20] MEDS: HYDROmorphONE 1 MG/ML SYG IV ×2 (06:58→22:41)
[2018-04-20] MEDS: FAMOTIDINE 20 MG INJ IV ×2 (08:17→20:13)
[2018-04-20] MEDS: LINEZOLID 600 MG/D5W (PMX) 300 ML IVPB ×2 (08:17→21:13)
[2018-04-20] MEDS: SODIUM HYPOCHLORITE (1/40) 1 APPLIC BTL IRR (08:18)
[2018-04-20] MEDS: INSULIN ASPART [NOVOLOG] 3 ML PEN SC ×7 (08:28→20:17)
[2018-04-20] MEDS: INSULIN GLARGINE [LANTus] (100 UNITS/ML) SYG SC (08:28)
[2018-04-20] MEDS: HEPARIN 5,000 UNIT/0.5 ML VIAL SC ×2 (09:00→20:24)
[2018-04-20] MEDS: SILVER SULFADIAZINE 1% 25 GM CR TOP ×3 (09:25→20:13)
[2018-04-20] MEDS: SOD CHLORIDE 0.9% 1,000 ML IV ×2 (12:03→22:56)
[2018-04-20] MEDS ORDERED: FENTAnyl 50 MCG/ML VIAL (15:14)
[2018-04-20] MEDS ORDERED: MIDAZOLAM 1 MG/ML 2 ML INJ (15:14)
[2018-04-20] MEDS ORDERED: HYDROmorphONE 1 MG/5 ML IV SYRINGE IV (15:30)
[2018-04-20] MEDS ORDERED: FENTAnyl 50 MCG/ML VIAL IV (15:30)
[2018-04-20] MEDS ORDERED: MEPERIDINE 25 MG INJ IV (15:30)
[2018-04-20] MEDS ORDERED: DIPHENHYDRAMINE 50 MG INJ IV (15:30)
[2018-04-20] MEDS ORDERED: PROCHLORPERAZINE 10 MG INJ IV (15:30)
[2018-04-20] MEDS ORDERED: ONDANSETRON 4 MG INJ IV (15:30)
[2018-04-20] MEDS: ATORVASTATIN 20 MG TAB PO (20:14)
[2018-04-21] MEDS: PIPER-TAZO 3.375 GM IV (PMX) 100 ML IVPB ×4 (00:23→18:09)
[2018-04-21] MEDS: ACCU-CHEK XX (02:00)
[2018-04-21] MEDS: CLINDAMYCIN 900 MG/D5W (PMX) 50 ML IVPB (05:12)
[2018-04-21] MEDS: HYDROmorphONE 1 MG/ML SYG IV ×2 (05:14→18:12)
[2018-04-21 05:36] LABS: ADD MAN DIFF? NO
[2018-04-21 05:38] LABS: BASOPHILS % 0.2 % (0.0-2.0); EOSINOPHILS # 0.5 10^3/ul (0.0-0.5); EOSINOPHILS % 3.1 % (0.0-7.0); HEMATOCRIT 23.8 % (37.0-47.0); LYMPHOCYTES # 1.5 10^3/ul (0.8-2.9); LYMPHOCYTES % 8.6 % (15.0-51.0); MEAN CORPUSCULAR HEMOGLOBIN 29.9 pg (29.0-33.0); MEAN CORPUSCULAR HGB CONC 33.6 g/dl (32.0-37.0); MEAN CORPUSCULAR VOLUME 88.8 fl (82.0-101.0); MEAN PLATELET VOLUME 9.7 fl (7.4-10.4); MONOCYTE # 0.5 10^3/ul (0.3-0.9); NEUTROPHIL # 14.2 10^3/ul (1.6-7.5); NEUTROPHILS % 84.4 % (39.0-77.0); PLATELET COUNT 755 10^3/UL (140-415); RED BLOOD COUNT 2.68 10^6/ul (4.20-5.40)
[2018-04-21 05:38] LABS: WHITE BLOOD COUNT 16.9 10^3/ul (4.8-10.8)
[2018-04-21 06:09] LABS: ANION GAP 15 (8-16); BLOOD UREA NITROGEN 14 mg/dl (7-20); CALCIUM 7.7 mg/dl (8.4-10.2); CARBON DIOXIDE 21 mmol/L (21-31); CHLORIDE 105 mmol/L (97-110); CREATININE 0.94 mg/dl (0.44-1.00); GLUCOSE 89 mg/dl (70-220); POTASSIUM 3.5 mmol/L (3.5-5.1); SODIUM 137 mmol/L (135-144)
[2018-04-21] MEDS: SOD CHLORIDE 0.9% 1,000 ML IV ×2 (06:19→18:09)
[2018-04-21] MEDS: INSULIN ASPART [NOVOLOG] 3 ML PEN SC ×7 (08:00→20:41)
[2018-04-21] MEDS: SODIUM HYPOCHLORITE (1/40) 1 APPLIC BTL IRR (09:02)
[2018-04-21] MEDS: FAMOTIDINE 20 MG INJ IV ×2 (09:02→20:42)
[2018-04-21] MEDS: HEPARIN 5,000 UNIT/0.5 ML VIAL SC ×2 (09:10→20:59)
[2018-04-21] MEDS: INSULIN GLARGINE [LANTus] (100 UNITS/ML) SYG SC (09:11)
[2018-04-21] MEDS: LINEZOLID 600 MG/D5W (PMX) 300 ML IVPB (09:12)
[2018-04-21] MEDS: SILVER SULFADIAZINE 1% 25 GM CR TOP ×3 (09:12→20:42)
[2018-04-21] MEDS: ATORVASTATIN 20 MG TAB PO (20:42)
[2018-04-22] MEDS: PIPER-TAZO 3.375 GM IV (PMX) 100 ML IVPB ×5 (00:42→23:29)
[2018-04-22] MEDS: ACCU-CHEK XX (02:00)
[2018-04-22] MEDS: SOD CHLORIDE 0.9% 1,000 ML IV ×2 (05:48→16:13)
[2018-04-22 06:14] LABS: ADD MAN DIFF? NO
[2018-04-22 06:33] LABS: BASOPHILS % 0.1 % (0.0-2.0); EOSINOPHILS # 0.5 10^3/ul (0.0-0.5); EOSINOPHILS % 3.4 % (0.0-7.0); HEMATOCRIT 26.1 % (37.0-47.0); HEMOGLOBIN 8.5 g/dl (12.0-16.0); LYMPHOCYTES # 1.6 10^3/ul (0.8-2.9); LYMPHOCYTES % 11.5 % (15.0-51.0); MEAN CORPUSCULAR HEMOGLOBIN 28.6 pg (29.0-33.0); MEAN CORPUSCULAR HGB CONC 32.6 g/dl (32.0-37.0); MEAN CORPUSCULAR VOLUME 87.9 fl (82.0-101.0); MEAN PLATELET VOLUME 9.7 fl (7.4-10.4); MONOCYTE # 0.6 10^3/ul (0.3-0.9); MONOCYTES % 3.9 % (0.0-11.0); NEUTROPHIL # 11.4 10^3/ul (1.6-7.5); NEUTROPHILS % 80.3 % (39.0-77.0); PLATELET COUNT 846 10^3/UL (140-415); RED BLOOD COUNT 2.97 10^6/ul (4.20-5.40); RED CELL DISTRIBUTION WIDTH 14.8 % (11.5-14.5)
[2018-04-22 06:33] LABS: WHITE BLOOD COUNT 14.2 10^3/ul (4.8-10.8)
[2018-04-22 06:47] LABS: ANION GAP 12 (8-16); BLOOD UREA NITROGEN 11 mg/dl (7-20); CALCIUM 7.9 mg/dl (8.4-10.2); CARBON DIOXIDE 24 mmol/L (21-31); CHLORIDE 106 mmol/L (97-110); CREATININE 0.89 mg/dl (0.44-1.00); GLUCOSE 63 mg/dl (70-220); POTASSIUM 3.7 mmol/L (3.5-5.1); SODIUM 138 mmol/L (135-144)
[2018-04-22] MEDS: INSULIN ASPART [NOVOLOG] 3 ML PEN SC ×7 (07:55→20:17)
[2018-04-22] MEDS: FAMOTIDINE 20 MG INJ IV ×2 (08:01→20:17)
[2018-04-22] MEDS: SILVER SULFADIAZINE 1% 25 GM CR TOP ×3 (08:01→20:17)
[2018-04-22] MEDS: SODIUM HYPOCHLORITE (1/40) 1 APPLIC BTL IRR (08:02)
[2018-04-22] MEDS: INSULIN GLARGINE [LANTus] (100 UNITS/ML) SYG SC (08:09)
[2018-04-22] MEDS: HEPARIN 5,000 UNIT/0.5 ML VIAL SC ×2 (08:10→20:19)
[2018-04-22] MEDS: ALBUTEROL/IPRATROPIUM (NEB) 3 ML AMP NEB (15:03)
[2018-04-22] MEDS: hydrALAzine 20 MG INJ IV (16:12)
[2018-04-22] MEDS: HYDROCODONE/APAP (5/325) TAB PO (17:35)
[2018-04-22] MEDS: ATORVASTATIN 20 MG TAB PO (20:17)
[2018-04-23] MEDS: SOD CHLORIDE 0.9% 1,000 ML IV ×2 (00:56→05:12)
[2018-04-23] MEDS: ACCU-CHEK XX (02:00)
[2018-04-23] MEDS: PIPER-TAZO 3.375 GM IV (PMX) 100 ML IVPB ×3 (05:11→17:35)
[2018-04-23 05:45] LABS: ADD MAN DIFF? NO
[2018-04-23 05:57] LABS: WHITE BLOOD COUNT 13.5 10^3/ul (4.8-10.8)
[2018-04-23 05:57] LABS: BASOPHILS % 0.1 % (0.0-2.0); EOSINOPHILS # 0.4 10^3/ul (0.0-0.5); EOSINOPHILS % 3.2 % (0.0-7.0); HEMATOCRIT 25.7 % (37.0-47.0); HEMOGLOBIN 8.3 g/dl (12.0-16.0); LYMPHOCYTES # 1.6 10^3/ul (0.8-2.9); LYMPHOCYTES % 11.6 % (15.0-51.0); MEAN CORPUSCULAR HEMOGLOBIN 29.1 pg (29.0-33.0); MEAN CORPUSCULAR HGB CONC 32.3 g/dl (32.0-37.0); MEAN CORPUSCULAR VOLUME 90.2 fl (82.0-101.0); MEAN PLATELET VOLUME 9.3 fl (7.4-10.4); MONOCYTE # 0.6 10^3/ul (0.3-0.9); MONOCYTES % 4.5 % (0.0-11.0); NEUTROPHIL # 10.8 10^3/ul (1.6-7.5); NEUTROPHILS % 80.2 % (39.0-77.0); PLATELET COUNT 822 10^3/UL (140-415); RED BLOOD COUNT 2.85 10^6/ul (4.20-5.40); RED CELL DISTRIBUTION WIDTH 14.6 % (11.5-14.5)
[2018-04-23 06:11] LABS: ANION GAP 12 (8-16); BLOOD UREA NITROGEN 11 mg/dl (7-20); CALCIUM 7.8 mg/dl (8.4-10.2); CARBON DIOXIDE 24 mmol/L (21-31); CHLORIDE 110 mmol/L (97-110); CREATININE 0.87 mg/dl (0.44-1.00); GLUCOSE 62 mg/dl (70-220); POTASSIUM 3.6 mmol/L (3.5-5.1); SODIUM 142 mmol/L (135-144)
[2018-04-23 06:19] LABS: C-REACTIVE PROTEIN 8.4 mg/dl (0.0-0.9)
[2018-04-23] MEDS: INSULIN ASPART [NOVOLOG] 3 ML PEN SC ×7 (07:37→20:30)
[2018-04-23] MEDS: INSULIN GLARGINE [LANTus] (100 UNITS/ML) SYG SC (07:54)
[2018-04-23] MEDS: FAMOTIDINE 20 MG INJ IV ×2 (08:00→20:30)
[2018-04-23] MEDS: SODIUM HYPOCHLORITE (1/40) 1 APPLIC BTL IRR (08:00)
[2018-04-23] MEDS: SILVER SULFADIAZINE 1% 25 GM CR TOP ×3 (08:00→20:34)
[2018-04-23] MEDS: HEPARIN 5,000 UNIT/0.5 ML VIAL SC ×2 (08:05→20:33)
[2018-04-23 08:35] LABS: ERYTHROCYTE SEDIMENTATION RATE 16 mm/Hr (0-20)
[2018-04-23] MEDS: hydrALAzine 20 MG INJ IV (10:00)
[2018-04-23 13:21] LABS: PROCALCITONIN 0.93 ng/mL (<0.10)
[2018-04-23] MEDS: HYDROmorphONE 1 MG/ML SYG IV (14:36)
[2018-04-23] MEDS: ATORVASTATIN 20 MG TAB PO (20:30)
[2018-04-24] MEDS: PIPER-TAZO 3.375 GM IV (PMX) 100 ML IVPB ×5 (00:29→23:37)
[2018-04-24] MEDS: HYDROmorphONE 1 MG/ML SYG IV ×3 (00:32→21:32)
[2018-04-24] MEDS: ACCU-CHEK XX (01:56)
[2018-04-24 06:07] LABS: ADD MAN DIFF? NO
[2018-04-24 06:12] LABS: WHITE BLOOD COUNT 13.3 10^3/ul (4.8-10.8)
[2018-04-24 06:12] LABS: BASOPHILS % 0.2 % (0.0-2.0); EOSINOPHILS # 0.6 10^3/ul (0.0-0.5); EOSINOPHILS % 4.3 % (0.0-7.0); HEMATOCRIT 23.6 % (37.0-47.0); HEMOGLOBIN 7.7 g/dl (12.0-16.0); LYMPHOCYTES # 2.1 10^3/ul (0.8-2.9); LYMPHOCYTES % 15.8 % (15.0-51.0); MEAN CORPUSCULAR HEMOGLOBIN 29.6 pg (29.0-33.0); MEAN CORPUSCULAR HGB CONC 32.6 g/dl (32.0-37.0); MEAN CORPUSCULAR VOLUME 90.8 fl (82.0-101.0); MONOCYTE # 0.7 10^3/ul (0.3-0.9); MONOCYTES % 5.5 % (0.0-11.0); NEUTROPHIL # 9.8 10^3/ul (1.6-7.5); NEUTROPHILS % 73.5 % (39.0-77.0); RED CELL DISTRIBUTION WIDTH 14.6 % (11.5-14.5)
[2018-04-24 06:42] LABS: ANION GAP 9 (8-16); BLOOD UREA NITROGEN 11 mg/dl (7-20); CALCIUM 7.9 mg/dl (8.4-10.2); CARBON DIOXIDE 27 mmol/L (21-31); CHLORIDE 110 mmol/L (97-110); CREATININE 0.92 mg/dl (0.44-1.00); GLUCOSE 67 mg/dl (70-220); POTASSIUM 3.7 mmol/L (3.5-5.1); SODIUM 142 mmol/L (135-144)
[2018-04-24 06:52] LABS: PLATELET COUNT 787 10^3/UL (140-415)
[2018-04-24] MEDS: DEXTROSE 50% 50 ML SYRINGE IV (07:54)
[2018-04-24] MEDS: INSULIN ASPART [NOVOLOG] 3 ML PEN SC ×7 (07:58→21:00)
[2018-04-24] MEDS ORDERED: morphine 4 MG/ML VIAL (08:30)
[2018-04-24] MEDS ORDERED: KETOROLAC 30 MG INJ (08:42)
[2018-04-24] MEDS: KETOROLAC 30 MG INJ IV (08:45)
[2018-04-24] MEDS: morphine 4 MG/ML VIAL IV (08:45)
[2018-04-24] MEDS: FAMOTIDINE 20 MG INJ IV ×2 (09:29→21:31)
[2018-04-24] MEDS: HEPARIN 5,000 UNIT/0.5 ML VIAL SC ×2 (09:30→21:54)
[2018-04-24] MEDS: SILVER SULFADIAZINE 1% 25 GM CR TOP ×3 (09:32→21:31)
[2018-04-24] MEDS: SODIUM HYPOCHLORITE (1/40) 1 APPLIC BTL IRR (09:32)
[2018-04-24] MEDS: INSULIN GLARGINE [LANTus] (100 UNITS/ML) SYG SC (09:40)
[2018-04-24] MEDS: ATORVASTATIN 20 MG TAB PO (21:32)
[2018-04-25] MEDS: ACCU-CHEK XX (01:43)
[2018-04-25] MEDS: PIPER-TAZO 3.375 GM IV (PMX) 100 ML IVPB ×3 (05:32→17:39)
[2018-04-25 05:42] LABS: ADD MAN DIFF? NO
[2018-04-25 05:50] LABS: BASOPHILS % 0.3 % (0.0-2.0); EOSINOPHILS # 0.7 10^3/ul (0.0-0.5); EOSINOPHILS % 5.6 % (0.0-7.0); HEMATOCRIT 22.1 % (37.0-47.0); HEMOGLOBIN 7.1 g/dl (12.0-16.0); LYMPHOCYTES # 2.2 10^3/ul (0.8-2.9); LYMPHOCYTES % 18.2 % (15.0-51.0); MEAN CORPUSCULAR HEMOGLOBIN 29.3 pg (29.0-33.0); MEAN CORPUSCULAR HGB CONC 32.1 g/dl (32.0-37.0); MEAN CORPUSCULAR VOLUME 91.3 fl (82.0-101.0); MEAN PLATELET VOLUME 9.1 fl (7.4-10.4); MONOCYTE # 0.8 10^3/ul (0.3-0.9); MONOCYTES % 6.5 % (0.0-11.0); NEUTROPHIL # 8.2 10^3/ul (1.6-7.5); NEUTROPHILS % 68.8 % (39.0-77.0); PLATELET COUNT 822 10^3/UL (140-415); RED BLOOD COUNT 2.42 10^6/ul (4.20-5.40); RED CELL DISTRIBUTION WIDTH 14.9 % (11.5-14.5)
[2018-04-25 05:50] LABS: WHITE BLOOD COUNT 11.9 10^3/ul (4.8-10.8)
[2018-04-25 06:04] LABS: PHOSPHORUS 3.8 mg/dl (2.5-4.9)
[2018-04-25 06:04] LABS: MAGNESIUM 1.6 mg/dl (1.7-2.5)
[2018-04-25 06:17] LABS: ANION GAP 9 (8-16); BLOOD UREA NITROGEN 14 mg/dl (7-20); CARBON DIOXIDE 27 mmol/L (21-31); CHLORIDE 107 mmol/L (97-110); CREATININE 1.06 mg/dl (0.44-1.00); GLUCOSE 86 mg/dl (70-220); POTASSIUM 4.1 mmol/L (3.5-5.1); SODIUM 139 mmol/L (135-144)
[2018-04-25 07:10] LABS: ERYTHROCYTE SEDIMENTATION RATE 130 mm/Hr (0-20)
[2018-04-25] MEDS: INSULIN ASPART [NOVOLOG] 3 ML PEN SC ×7 (08:00→20:14)
[2018-04-25] MEDS: MAGNESIUM SULFATE 2 GM/50 ML 50 ML IVPB (08:00)
[2018-04-25] MEDS: INSULIN GLARGINE [LANTus] (100 UNITS/ML) SYG SC (08:15)
[2018-04-25] MEDS: FAMOTIDINE 20 MG INJ IV ×2 (09:00→20:14)
[2018-04-25] MEDS: SILVER SULFADIAZINE 1% 25 GM CR TOP ×3 (09:00→20:15)
[2018-04-25] MEDS: SODIUM HYPOCHLORITE (1/40) 1 APPLIC BTL IRR (09:01)
[2018-04-25] MEDS: HEPARIN 5,000 UNIT/0.5 ML VIAL SC ×2 (09:10→21:50)
[2018-04-25] MEDS: HYDROmorphONE 1 MG/ML SYG IV ×2 (15:50→20:15)
[2018-04-25] MEDS: ATORVASTATIN 20 MG TAB PO (20:14)
[2018-04-26] MEDS: PIPER-TAZO 3.375 GM IV (PMX) 100 ML IVPB ×4 (00:08→17:32)
[2018-04-26] MEDS: ACCU-CHEK XX (02:00)
[2018-04-26 05:58] LABS: ADD MAN DIFF? NO
[2018-04-26 06:01] LABS: WHITE BLOOD COUNT 11.2 10^3/ul (4.8-10.8)
[2018-04-26 06:01] LABS: ABNORMAL IP MESSAGE 1; BASOPHILS % 0.4 % (0.0-2.0); EOSINOPHILS # 0.4 10^3/ul (0.0-0.5); EOSINOPHILS % 3.6 % (0.0-7.0); HEMATOCRIT 21.7 % (37.0-47.0); LYMPHOCYTES # 1.7 10^3/ul (0.8-2.9); LYMPHOCYTES % 15.3 % (15.0-51.0); MEAN CORPUSCULAR HEMOGLOBIN 29.2 pg (29.0-33.0); MEAN CORPUSCULAR HGB CONC 31.8 g/dl (32.0-37.0); MEAN CORPUSCULAR VOLUME 91.9 fl (82.0-101.0); MONOCYTE # 0.7 10^3/ul (0.3-0.9); MONOCYTES % 6.3 % (0.0-11.0); NEUTROPHIL # 8.3 10^3/ul (1.6-7.5); PLATELET COUNT 858 10^3/UL (140-415); RED BLOOD COUNT 2.36 10^6/ul (4.20-5.40); RED CELL DISTRIBUTION WIDTH 14.7 % (11.5-14.5)
[2018-04-26 06:07] LABS: POSITIVE DIFF @See below
[2018-04-26 06:09] LABS: HEMOGLOBIN 6.9 g/dl (12.0-16.0)
[2018-04-26 06:40] LABS: PHOSPHORUS 3.9 mg/dl (2.5-4.9)
[2018-04-26 07:07] LABS: BLOOD UREA NITROGEN 13 mg/dl (7-20); CALCIUM 8.2 mg/dl (8.4-10.2); CARBON DIOXIDE 27 mmol/L (21-31); CHLORIDE 108 mmol/L (97-110); CREATININE 0.83 mg/dl (0.44-1.00); SODIUM 138 mmol/L (135-144)
[2018-04-26 07:31] LABS: ANION GAP 7 (8-16); POTASSIUM 4.1 mmol/L (3.5-5.1)
[2018-04-26 07:39] LABS: GLUCOSE 50 mg/dl (70-220)
[2018-04-26] MEDS: INSULIN ASPART [NOVOLOG] 3 ML PEN SC ×7 (07:43→20:57)
[2018-04-26] MEDS: FAMOTIDINE 20 MG INJ IV ×2 (08:11→21:23)
[2018-04-26] MEDS: SILVER SULFADIAZINE 1% 25 GM CR TOP ×3 (08:11→21:25)
[2018-04-26] MEDS: HEPARIN 5,000 UNIT/0.5 ML VIAL SC ×2 (08:30→21:34)
[2018-04-26] MEDS: SODIUM HYPOCHLORITE (1/40) 1 APPLIC BTL IRR (08:31)
[2018-04-26 09:00] LABS: HEMATOCRIT 24.8 % (37.0-47.0); HEMOGLOBIN 7.7 g/dl (12.0-16.0)
[2018-04-26] MEDS: INSULIN GLARGINE [LANTus] (100 UNITS/ML) SYG SC (10:42)
[2018-04-26 11:06] LABS: ADD MAN DIFF? NO
[2018-04-26 11:08] LABS: BASOPHIL # 0.1 10^3/ul (0.0-0.1); BASOPHILS % 0.4 % (0.0-2.0); EOSINOPHILS # 0.4 10^3/ul (0.0-0.5); EOSINOPHILS % 3.6 % (0.0-7.0); HEMATOCRIT 25.4 % (37.0-47.0); HEMOGLOBIN 7.9 g/dl (12.0-16.0); LYMPHOCYTES # 1.4 10^3/ul (0.8-2.9); LYMPHOCYTES % 12.1 % (15.0-51.0); MEAN CORPUSCULAR HEMOGLOBIN 28.7 pg (29.0-33.0); MEAN CORPUSCULAR HGB CONC 31.1 g/dl (32.0-37.0); MEAN CORPUSCULAR VOLUME 92.4 fl (82.0-101.0); MEAN PLATELET VOLUME 8.6 fl (7.4-10.4); MONOCYTE # 0.6 10^3/ul (0.3-0.9); NEUTROPHIL # 8.9 10^3/ul (1.6-7.5); NEUTROPHILS % 78.3 % (39.0-77.0); RED BLOOD COUNT 2.75 10^6/ul (4.20-5.40); RED CELL DISTRIBUTION WIDTH 14.5 % (11.5-14.5)
[2018-04-26 11:08] LABS: WHITE BLOOD COUNT 11.4 10^3/ul (4.8-10.8)
[2018-04-26 11:19] LABS: PLATELET COUNT 944 10^3/UL (140-415)
[2018-04-26] MEDS: LIDOCAINE 1% (MDV) 50 ML INJ SC (11:30)
[2018-04-26] MEDS: LIDOCAINE 1% (MDV) 10 ML INJ INJ (11:30)
[2018-04-26] MEDS: DEXTROSE 50% 50 ML SYRINGE IV (17:26)
[2018-04-26 19:47] LABS: OCCULT BLOOD STOOL NEGATIVE (NEGATIVE)
[2018-04-26] MEDS: ATORVASTATIN 20 MG TAB PO (21:24)
[2018-04-26] MEDS: HYDROmorphONE 1 MG/ML SYG IV (21:39)
[2018-04-26] MEDS: hydrALAzine 20 MG INJ IV (22:37)
[2018-04-27] MEDS: PIPER-TAZO 3.375 GM IV (PMX) 100 ML IVPB ×5 (00:09→23:22)
[2018-04-27] MEDS: ACCU-CHEK XX (01:01)
[2018-04-27 04:54] LABS: ADD MAN DIFF? NO
[2018-04-27 05:05] LABS: BASOPHIL # 0.1 10^3/ul (0.0-0.1); BASOPHILS % 0.5 % (0.0-2.0); EOSINOPHILS # 0.6 10^3/ul (0.0-0.5); EOSINOPHILS % 4.8 % (0.0-7.0); HEMATOCRIT 23.9 % (37.0-47.0); HEMOGLOBIN 7.6 g/dl (12.0-16.0); LYMPHOCYTES # 2.3 10^3/ul (0.8-2.9); LYMPHOCYTES % 20.1 % (15.0-51.0); MEAN CORPUSCULAR HEMOGLOBIN 29.1 pg (29.0-33.0); MEAN CORPUSCULAR HGB CONC 31.8 g/dl (32.0-37.0); MEAN CORPUSCULAR VOLUME 91.6 fl (82.0-101.0); MEAN PLATELET VOLUME 8.6 fl (7.4-10.4); MONOCYTE # 0.6 10^3/ul (0.3-0.9); MONOCYTES % 5.3 % (0.0-11.0); NEUTROPHIL # 7.8 10^3/ul (1.6-7.5); NEUTROPHILS % 68.9 % (39.0-77.0); PLATELET COUNT 929 10^3/UL (140-415); RED BLOOD COUNT 2.61 10^6/ul (4.20-5.40); RED CELL DISTRIBUTION WIDTH 14.6 % (11.5-14.5)
[2018-04-27 05:05] LABS: WHITE BLOOD COUNT 11.4 10^3/ul (4.8-10.8)
[2018-04-27 05:24] LABS: ANION GAP 9 (8-16); BLOOD UREA NITROGEN 11 mg/dl (7-20); CALCIUM 8.4 mg/dl (8.4-10.2); CARBON DIOXIDE 30 mmol/L (21-31); CHLORIDE 106 mmol/L (97-110); CREATININE 0.89 mg/dl (0.44-1.00); GLUCOSE 112 mg/dl (70-220); POTASSIUM 3.9 mmol/L (3.5-5.1); SODIUM 141 mmol/L (135-144)
[2018-04-27 05:26] LABS: MAGNESIUM 1.8 mg/dl (1.7-2.5)
[2018-04-27 05:26] LABS: PHOSPHORUS 3.9 mg/dl (2.5-4.9)
[2018-04-27] MEDS: INSULIN ASPART [NOVOLOG] 3 ML PEN SC ×7 (07:50→21:00)
[2018-04-27] MEDS: FAMOTIDINE 20 MG INJ IV ×2 (08:44→21:38)
[2018-04-27] MEDS: HYDROmorphONE 1 MG/ML SYG IV ×2 (08:45→15:41)
[2018-04-27] MEDS: HEPARIN 5,000 UNIT/0.5 ML VIAL SC ×2 (08:52→21:40)
[2018-04-27] MEDS: INSULIN GLARGINE [LANTus] (100 UNITS/ML) SYG SC (08:52)
[2018-04-27] MEDS: SILVER SULFADIAZINE 1% 25 GM CR TOP ×3 (08:53→21:51)
[2018-04-27] MEDS: SODIUM HYPOCHLORITE (1/40) 1 APPLIC BTL IRR (08:53)
[2018-04-27] MEDS: HYDROCODONE/APAP (5/325) TAB PO (17:48)
[2018-04-27] MEDS ORDERED: GLUCOSE GEL 15 GRAM TUBE (21:19)
[2018-04-27] MEDS: GLUCOSE GEL 15 GRAM TUBE PO (21:37)
[2018-04-27] MEDS: ATORVASTATIN 20 MG TAB PO (21:38)
[2018-04-28] MEDS: ACCU-CHEK XX (02:52)
[2018-04-28 05:36] LABS: WHITE BLOOD COUNT 10.2 10^3/ul (4.8-10.8)
[2018-04-28 05:36] LABS: ADD MAN DIFF? NO; BASOPHIL # 0.1 10^3/ul (0.0-0.1); BASOPHILS % 0.6 % (0.0-2.0); EOSINOPHILS # 0.7 10^3/ul (0.0-0.5); EOSINOPHILS % 6.6 % (0.0-7.0); HEMATOCRIT 25.2 % (37.0-47.0); HEMOGLOBIN 7.7 g/dl (12.0-16.0); LYMPHOCYTES # 1.6 10^3/ul (0.8-2.9); LYMPHOCYTES % 15.1 % (15.0-51.0); MEAN CORPUSCULAR HEMOGLOBIN 28.6 pg (29.0-33.0); MEAN CORPUSCULAR HGB CONC 30.6 g/dl (32.0-37.0); MEAN CORPUSCULAR VOLUME 93.7 fl (82.0-101.0); MEAN PLATELET VOLUME 8.5 fl (7.4-10.4); MONOCYTE # 0.6 10^3/ul (0.3-0.9); MONOCYTES % 5.6 % (0.0-11.0); NEUTROPHIL # 7.3 10^3/ul (1.6-7.5); NEUTROPHILS % 71.5 % (39.0-77.0); PLATELET COUNT 964 10^3/UL (140-415); RED BLOOD COUNT 2.69 10^6/ul (4.20-5.40); RED CELL DISTRIBUTION WIDTH 14.2 % (11.5-14.5)
[2018-04-28] MEDS: PIPER-TAZO 3.375 GM IV (PMX) 100 ML IVPB ×3 (05:41→18:28)
[2018-04-28 06:14] LABS: ANION GAP 11 (8-16); BLOOD UREA NITROGEN 14 mg/dl (7-20); CALCIUM 8.6 mg/dl (8.4-10.2); CARBON DIOXIDE 28 mmol/L (21-31); CHLORIDE 104 mmol/L (97-110); CREATININE 0.89 mg/dl (0.44-1.00); GLUCOSE 184 mg/dl (70-220); POTASSIUM 5.2 mmol/L (3.5-5.1); SODIUM 138 mmol/L (135-144)
[2018-04-28 06:18] LABS: MAGNESIUM 1.8 mg/dl (1.7-2.5)
[2018-04-28 06:18] LABS: PHOSPHORUS 3.6 mg/dl (2.5-4.9)
[2018-04-28] MEDS: INSULIN ASPART [NOVOLOG] 3 ML PEN SC ×7 (08:53→21:00)
[2018-04-28] MEDS: INSULIN GLARGINE [LANTus] (100 UNITS/ML) SYG SC (08:53)
[2018-04-28] MEDS: FAMOTIDINE 20 MG INJ IV ×2 (08:55→21:24)
[2018-04-28] MEDS: HEPARIN 5,000 UNIT/0.5 ML VIAL SC ×2 (08:55→21:26)
[2018-04-28 11:16] LABS: POTASSIUM 3.9 mmol/L (3.5-5.1)
[2018-04-28] MEDS: HYDROmorphONE 1 MG/ML SYG IV ×3 (12:46→22:34)
[2018-04-28] MEDS: SODIUM HYPOCHLORITE (1/40) 1 APPLIC BTL IRR (18:14)
[2018-04-28] MEDS: SILVER SULFADIAZINE 1% 25 GM CR TOP ×3 (18:14→21:00)
[2018-04-28] MEDS: ATORVASTATIN 20 MG TAB PO (21:24)
[2018-04-29] MEDS: PIPER-TAZO 3.375 GM IV (PMX) 100 ML IVPB ×4 (00:12→17:52)
[2018-04-29] MEDS: ACCU-CHEK XX ×2 (02:00→21:34)
[2018-04-29 05:12] LABS: ADD MAN DIFF? NO
[2018-04-29 05:17] LABS: WHITE BLOOD COUNT 9.8 10^3/ul (4.8-10.8)
[2018-04-29 05:17] LABS: BASOPHIL # 0.1 10^3/ul (0.0-0.1); BASOPHILS % 0.5 % (0.0-2.0); EOSINOPHILS # 0.9 10^3/ul (0.0-0.5); EOSINOPHILS % 8.7 % (0.0-7.0); HEMATOCRIT 23.7 % (37.0-47.0); HEMOGLOBIN 7.3 g/dl (12.0-16.0); LYMPHOCYTES # 1.9 10^3/ul (0.8-2.9); MEAN CORPUSCULAR HEMOGLOBIN 28.4 pg (29.0-33.0); MEAN CORPUSCULAR HGB CONC 30.8 g/dl (32.0-37.0); MEAN CORPUSCULAR VOLUME 92.2 fl (82.0-101.0); MEAN PLATELET VOLUME 8.5 fl (7.4-10.4); MONOCYTE # 0.7 10^3/ul (0.3-0.9); MONOCYTES % 6.6 % (0.0-11.0); NEUTROPHIL # 6.4 10^3/ul (1.6-7.5); NEUTROPHILS % 64.9 % (39.0-77.0); PLATELET COUNT 855 10^3/UL (140-415); RED BLOOD COUNT 2.57 10^6/ul (4.20-5.40); RED CELL DISTRIBUTION WIDTH 14.3 % (11.5-14.5)
[2018-04-29 05:38] LABS: INR 1.11; PROTIME 14.5 Sec (11.9-14.9); PT RATIO 1.1
[2018-04-29 05:39] LABS: PARTIAL THROMBOPLASTIN TIME 35.4 Sec (25.0-35.0)
[2018-04-29 05:42] LABS: PHOSPHORUS 4.5 mg/dl (2.5-4.9)
[2018-04-29 05:42] LABS: MAGNESIUM 1.7 mg/dl (1.7-2.5)
[2018-04-29 05:45] LABS: ANION GAP 10 (8-16); BLOOD UREA NITROGEN 13 mg/dl (7-20); CALCIUM 8.6 mg/dl (8.4-10.2); CARBON DIOXIDE 30 mmol/L (21-31); CHLORIDE 104 mmol/L (97-110); CREATININE 1.08 mg/dl (0.44-1.00); GLUCOSE 168 mg/dl (70-220); POTASSIUM 4.1 mmol/L (3.5-5.1); SODIUM 140 mmol/L (135-144)
[2018-04-29] MEDS: INSULIN ASPART [NOVOLOG] 3 ML PEN SC ×7 (07:50→21:00)
[2018-04-29] MEDS: HEPARIN 5,000 UNIT/0.5 ML VIAL SC ×2 (08:16→20:22)
[2018-04-29] MEDS: FAMOTIDINE 20 MG INJ IV ×2 (08:50→20:19)
[2018-04-29] MEDS ORDERED: MEPERIDINE 25 MG INJ IV (09:00)
[2018-04-29] MEDS ORDERED: FENTAnyl 50 MCG/ML VIAL IV ×3 (09:00)
[2018-04-29] MEDS ORDERED: DIPHENHYDRAMINE 50 MG INJ IV (09:00)
[2018-04-29] MEDS ORDERED: hydrALAzine 20 MG INJ IV (09:00)
[2018-04-29] MEDS ORDERED: EPHEDrine SULFATE 50 MG/5 ML SYG IV (09:00)
[2018-04-29] MEDS ORDERED: METOCLOPRAMIDE 10 MG INJ IV (09:00)
[2018-04-29] MEDS ORDERED: ONDANSETRON 4 MG INJ IV (09:00)
[2018-04-29] MEDS ORDERED: HYDROmorphONE 1 MG/5 ML IV SYRINGE IV ×3 (09:00)
[2018-04-29] MEDS ORDERED: LABETALOL HCL 20MG INJ IV (09:00)
[2018-04-29] MEDS ORDERED: OXYCODONE/ACETAMINOPHEN (5/325) TAB PO (09:00)
[2018-04-29] MEDS: INSULIN GLARGINE [LANTus] (100 UNITS/ML) SYG SC (12:42)
[2018-04-29] MEDS: SILVER SULFADIAZINE 1% 25 GM CR TOP ×3 (13:00→21:00)
[2018-04-29] MEDS: SODIUM HYPOCHLORITE (1/40) 1 APPLIC BTL IRR (16:32)
[2018-04-29] MEDS: HYDROmorphONE 1 MG/ML SYG IV ×2 (16:32→20:34)
[2018-04-29] MEDS: ATORVASTATIN 20 MG TAB PO (20:20)
[2018-04-30] MEDS: PIPER-TAZO 3.375 GM IV (PMX) 100 ML IVPB ×4 (01:27→17:48)
[2018-04-30] MEDS: HYDROmorphONE 1 MG/ML SYG IV ×3 (01:45→20:50)
[2018-04-30 05:30] LABS: WHITE BLOOD COUNT 10.1 10^3/ul (4.8-10.8)
[2018-04-30 05:30] LABS: BASOPHIL # 0.1 10^3/ul (0.0-0.1); BASOPHILS % 0.6 % (0.0-2.0); EOSINOPHILS # 0.9 10^3/ul (0.0-0.5); HEMATOCRIT 24.5 % (37.0-47.0); HEMOGLOBIN 7.6 g/dl (12.0-16.0); LYMPHOCYTES % 20.1 % (15.0-51.0); MEAN CORPUSCULAR HEMOGLOBIN 28.6 pg (29.0-33.0); MEAN CORPUSCULAR VOLUME 92.1 fl (82.0-101.0); MEAN PLATELET VOLUME 8.4 fl (7.4-10.4); MONOCYTE # 0.7 10^3/ul (0.3-0.9); MONOCYTES % 6.7 % (0.0-11.0); NEUTROPHIL # 6.4 10^3/ul (1.6-7.5); NEUTROPHILS % 63.1 % (39.0-77.0); PLATELET COUNT 817 10^3/UL (140-415); RED BLOOD COUNT 2.66 10^6/ul (4.20-5.40)
[2018-04-30 05:31] LABS: ADD MAN DIFF? NO
[2018-04-30 05:58] LABS: PHOSPHORUS 4.6 mg/dl (2.5-4.9)
[2018-04-30 05:58] LABS: MAGNESIUM 1.7 mg/dl (1.7-2.5)
[2018-04-30 06:13] LABS: ANION GAP 8 (8-16); BLOOD UREA NITROGEN 14 mg/dl (7-20); CALCIUM 8.5 mg/dl (8.4-10.2); CARBON DIOXIDE 33 mmol/L (21-31); CHLORIDE 103 mmol/L (97-110); GLUCOSE 111 mg/dl (70-220); POTASSIUM 3.9 mmol/L (3.5-5.1); SODIUM 140 mmol/L (135-144)
[2018-04-30] MEDS: INSULIN ASPART [NOVOLOG] 3 ML PEN SC ×7 (07:50→21:00)
[2018-04-30] MEDS: FAMOTIDINE 20 MG INJ IV ×2 (08:53→20:32)
[2018-04-30] MEDS: HEPARIN 5,000 UNIT/0.5 ML VIAL SC ×2 (08:53→21:00)
[2018-04-30] MEDS: SILVER SULFADIAZINE 1% 25 GM CR TOP ×3 (08:54→21:00)
[2018-04-30] MEDS: SODIUM HYPOCHLORITE (1/40) 1 APPLIC BTL IRR (08:54)
[2018-04-30] MEDS: INSULIN GLARGINE [LANTus] (100 UNITS/ML) SYG SC (09:05)
[2018-04-30] MEDS: HYDROCODONE/APAP (5/325) TAB PO ×2 (14:26→23:02)
[2018-04-30] MEDS: ATORVASTATIN 20 MG TAB PO (20:32)
[2018-04-30] MEDS: hydrALAzine 20 MG INJ IV (20:37)
[2018-05-01] MEDS: PIPER-TAZO 3.375 GM IV (PMX) 100 ML IVPB ×5 (00:20→23:32)
[2018-05-01] MEDS: ACCU-CHEK XX (02:00)
[2018-05-01 05:06] LABS: ADD MAN DIFF? NO
[2018-05-01 05:17] LABS: BASOPHIL # 0.1 10^3/ul (0.0-0.1); BASOPHILS % 0.5 % (0.0-2.0); EOSINOPHILS # 1.2 10^3/ul (0.0-0.5); EOSINOPHILS % 10.6 % (0.0-7.0); HEMATOCRIT 24.9 % (37.0-47.0); HEMOGLOBIN 7.8 g/dl (12.0-16.0); LYMPHOCYTES # 2.1 10^3/ul (0.8-2.9); LYMPHOCYTES % 18.8 % (15.0-51.0); MEAN CORPUSCULAR HEMOGLOBIN 28.6 pg (29.0-33.0); MEAN CORPUSCULAR HGB CONC 31.3 g/dl (32.0-37.0); MEAN CORPUSCULAR VOLUME 91.2 fl (82.0-101.0); MEAN PLATELET VOLUME 8.3 fl (7.4-10.4); MONOCYTE # 0.7 10^3/ul (0.3-0.9); MONOCYTES % 6.1 % (0.0-11.0); NEUTROPHILS % 63.6 % (39.0-77.0); PLATELET COUNT 805 10^3/UL (140-415); RED BLOOD COUNT 2.73 10^6/ul (4.20-5.40); RED CELL DISTRIBUTION WIDTH 13.9 % (11.5-14.5)
[2018-05-01 05:37] LABS: ANION GAP 10 (8-16); BLOOD UREA NITROGEN 18 mg/dl (7-20); CALCIUM 8.6 mg/dl (8.4-10.2); CARBON DIOXIDE 28 mmol/L (21-31); CHLORIDE 107 mmol/L (97-110); GLUCOSE 112 mg/dl (70-220); POTASSIUM 4.1 mmol/L (3.5-5.1); SODIUM 141 mmol/L (135-144)
[2018-05-01 05:39] LABS: MAGNESIUM 1.8 mg/dl (1.7-2.5)
[2018-05-01 05:39] LABS: PHOSPHORUS 4.3 mg/dl (2.5-4.9)
[2018-05-01] MEDS: INSULIN ASPART [NOVOLOG] 3 ML PEN SC ×7 (08:30→21:00)
[2018-05-01] MEDS: HEPARIN 5,000 UNIT/0.5 ML VIAL SC ×2 (09:00→20:37)
[2018-05-01] MEDS: SODIUM HYPOCHLORITE (1/40) 1 APPLIC BTL IRR (09:23)
[2018-05-01] MEDS: SILVER SULFADIAZINE 1% 25 GM CR TOP ×3 (09:25→21:00)
[2018-05-01] MEDS: FAMOTIDINE 20 MG INJ IV ×2 (09:30→20:35)
[2018-05-01] MEDS: INSULIN GLARGINE [LANTus] (100 UNITS/ML) SYG SC (09:30)
[2018-05-01] MEDS: HYDROmorphONE 1 MG/ML SYG IV ×3 (12:26→21:10)
[2018-05-01] MEDS ORDERED: DIPHENHYDRAMINE 2%/ZINC 28.4 GM CR TOP (13:30)
[2018-05-01] MEDS ORDERED: METOPROLOL 5 MG INJ (14:57)
[2018-05-01] MEDS ORDERED: MIDAZOLAM 1 MG/ML 2 ML INJ (14:58)
[2018-05-01] MEDS: BACITRACIN 50000 UNITS INJ (15:00)
[2018-05-01] MEDS: LIDOCAINE 1% (MPF) 30 ML INJ (15:26)
[2018-05-01] MEDS ORDERED: ONDANSETRON 4 MG INJ IV (15:30)
[2018-05-01] MEDS ORDERED: HYDROmorphONE 1 MG/5 ML IV SYRINGE IV (15:30)
[2018-05-01] MEDS: hydrALAzine 20 MG INJ IV (18:02)
[2018-05-01] MEDS: DEXTROSE 50% 50 ML SYRINGE IV (20:35)
[2018-05-01] MEDS: ATORVASTATIN 20 MG TAB PO (20:35)
[2018-05-02] MEDS: ACCU-CHEK XX (02:00)
[2018-05-02] MEDS: PIPER-TAZO 3.375 GM IV (PMX) 100 ML IVPB ×3 (05:37→17:57)
[2018-05-02 05:52] LABS: ADD MAN DIFF? NO
[2018-05-02 05:58] LABS: BASOPHIL # 0.1 10^3/ul (0.0-0.1); BASOPHILS % 0.5 % (0.0-2.0); EOSINOPHILS % 9.6 % (0.0-7.0); HEMATOCRIT 27.3 % (37.0-47.0); HEMOGLOBIN 8.6 g/dl (12.0-16.0); LYMPHOCYTES # 2.1 10^3/ul (0.8-2.9); LYMPHOCYTES % 19.1 % (15.0-51.0); MEAN CORPUSCULAR HEMOGLOBIN 29.1 pg (29.0-33.0); MEAN CORPUSCULAR HGB CONC 31.5 g/dl (32.0-37.0); MEAN CORPUSCULAR VOLUME 92.2 fl (82.0-101.0); MEAN PLATELET VOLUME 8.3 fl (7.4-10.4); MONOCYTE # 0.6 10^3/ul (0.3-0.9); MONOCYTES % 5.6 % (0.0-11.0); NEUTROPHILS % 64.8 % (39.0-77.0); PLATELET COUNT 809 10^3/UL (140-415); RED BLOOD COUNT 2.96 10^6/ul (4.20-5.40); RED CELL DISTRIBUTION WIDTH 13.9 % (11.5-14.5)
[2018-05-02 05:58] LABS: WHITE BLOOD COUNT 10.8 10^3/ul (4.8-10.8)
[2018-05-02 06:13] LABS: ANION GAP 12 (8-16); BLOOD UREA NITROGEN 19 mg/dl (7-20); CALCIUM 8.9 mg/dl (8.4-10.2); CARBON DIOXIDE 27 mmol/L (21-31); CHLORIDE 106 mmol/L (97-110); CREATININE 1.12 mg/dl (0.44-1.00); GLUCOSE 73 mg/dl (70-220); POTASSIUM 4.6 mmol/L (3.5-5.1); SODIUM 140 mmol/L (135-144)
[2018-05-02 07:15] LABS: C-REACTIVE PROTEIN 5.3 mg/dl (0.0-0.9)
[2018-05-02] MEDS: INSULIN ASPART [NOVOLOG] 3 ML PEN SC ×7 (07:50→20:51)
[2018-05-02 08:57] LABS: ERYTHROCYTE SEDIMENTATION RATE 135 mm/Hr (0-20)
[2018-05-02] MEDS: SILVER SULFADIAZINE 1% 25 GM CR TOP ×3 (09:00→20:53)
[2018-05-02] MEDS: INSULIN GLARGINE [LANTus] (100 UNITS/ML) SYG SC (09:04)
[2018-05-02] MEDS: HEPARIN 5,000 UNIT/0.5 ML VIAL SC ×2 (09:05→20:50)
[2018-05-02] MEDS: SODIUM HYPOCHLORITE (1/40) 1 APPLIC BTL IRR (09:06)
[2018-05-02] MEDS: FAMOTIDINE 20 MG INJ IV ×2 (09:06→20:48)
[2018-05-02] MEDS: ATORVASTATIN 20 MG TAB PO (20:49)
[2018-05-02] MEDS: HYDROCODONE/APAP (5/325) TAB PO (20:56)
[2018-05-03] MEDS: PIPER-TAZO 3.375 GM IV (PMX) 100 ML IVPB ×4 (00:05→18:09)
[2018-05-03] MEDS: ACCU-CHEK XX (02:00)
[2018-05-03 05:17] LABS: ADD MAN DIFF? NO
[2018-05-03 05:23] LABS: BASOPHIL # 0.1 10^3/ul (0.0-0.1); BASOPHILS % 0.6 % (0.0-2.0); EOSINOPHILS # 1.3 10^3/ul (0.0-0.5); HEMATOCRIT 25.7 % (37.0-47.0); LYMPHOCYTES # 2.1 10^3/ul (0.8-2.9); LYMPHOCYTES % 22.3 % (15.0-51.0); MEAN CORPUSCULAR HEMOGLOBIN 28.8 pg (29.0-33.0); MEAN CORPUSCULAR HGB CONC 31.1 g/dl (32.0-37.0); MEAN CORPUSCULAR VOLUME 92.4 fl (82.0-101.0); MEAN PLATELET VOLUME 8.4 fl (7.4-10.4); MONOCYTE # 0.6 10^3/ul (0.3-0.9); MONOCYTES % 6.5 % (0.0-11.0); NEUTROPHIL # 5.3 10^3/ul (1.6-7.5); NEUTROPHILS % 56.4 % (39.0-77.0); PLATELET COUNT 723 10^3/UL (140-415); RED BLOOD COUNT 2.78 10^6/ul (4.20-5.40); RED CELL DISTRIBUTION WIDTH 13.9 % (11.5-14.5)
[2018-05-03 05:23] LABS: WHITE BLOOD COUNT 9.5 10^3/ul (4.8-10.8)
[2018-05-03 06:01] LABS: ANION GAP 11 (8-16); BLOOD UREA NITROGEN 25 mg/dl (7-20); CALCIUM 8.5 mg/dl (8.4-10.2); CARBON DIOXIDE 28 mmol/L (21-31); CHLORIDE 107 mmol/L (97-110); CREATININE 1.81 mg/dl (0.44-1.00); GLUCOSE 209 mg/dl (70-220); POTASSIUM 4.4 mmol/L (3.5-5.1); SODIUM 142 mmol/L (135-144)
[2018-05-03] MEDS: HYDROCODONE/APAP (5/325) TAB PO (06:19)
[2018-05-03] MEDS: SODIUM HYPOCHLORITE (1/40) 1 APPLIC BTL IRR (07:20)
[2018-05-03] MEDS: SILVER SULFADIAZINE 1% 25 GM CR TOP ×3 (07:20→21:42)
[2018-05-03] MEDS: INSULIN GLARGINE [LANTus] (100 UNITS/ML) SYG SC (08:25)
[2018-05-03] MEDS: INSULIN ASPART [NOVOLOG] 3 ML PEN SC ×7 (08:26→21:39)
[2018-05-03] MEDS: HEPARIN 5,000 UNIT/0.5 ML VIAL SC ×2 (08:30→21:40)
[2018-05-03] MEDS: FAMOTIDINE 20 MG INJ IV ×2 (08:32→21:21)
[2018-05-03] MEDS: HYDROmorphONE 1 MG/ML SYG IV ×3 (08:33→21:44)
[2018-05-03] MEDS: ATORVASTATIN 20 MG TAB PO (21:21)
[2018-05-04] MEDS: PIPER-TAZO 3.375 GM IV (PMX) 100 ML IVPB ×4 (00:30→17:49)
[2018-05-04] MEDS: ACCU-CHEK XX ×2 (02:00→20:49)
[2018-05-04] MEDS: INSULIN ASPART [NOVOLOG] 3 ML PEN SC ×7 (08:13→20:34)
[2018-05-04] MEDS: HEPARIN 5,000 UNIT/0.5 ML VIAL SC ×2 (08:13→20:33)
[2018-05-04] MEDS: FAMOTIDINE 20 MG INJ IV ×2 (08:16→20:22)
[2018-05-04] MEDS: HYDROmorphONE 1 MG/ML SYG IV ×3 (08:20→20:41)
[2018-05-04 08:27] LABS: ADD MAN DIFF? NO
[2018-05-04 08:31] LABS: BASOPHIL # 0.1 10^3/ul (0.0-0.1); BASOPHILS % 0.6 % (0.0-2.0); EOSINOPHILS # 1.3 10^3/ul (0.0-0.5); EOSINOPHILS % 12.6 % (0.0-7.0); HEMATOCRIT 26.6 % (37.0-47.0); HEMOGLOBIN 8.4 g/dl (12.0-16.0); LYMPHOCYTES # 1.9 10^3/ul (0.8-2.9); MEAN CORPUSCULAR HEMOGLOBIN 29.3 pg (29.0-33.0); MEAN CORPUSCULAR HGB CONC 31.6 g/dl (32.0-37.0); MEAN CORPUSCULAR VOLUME 92.7 fl (82.0-101.0); MEAN PLATELET VOLUME 8.5 fl (7.4-10.4); MONOCYTE # 0.6 10^3/ul (0.3-0.9); MONOCYTES % 5.3 % (0.0-11.0); NEUTROPHIL # 6.6 10^3/ul (1.6-7.5); NEUTROPHILS % 63.1 % (39.0-77.0); RED BLOOD COUNT 2.87 10^6/ul (4.20-5.40); RED CELL DISTRIBUTION WIDTH 13.7 % (11.5-14.5)
[2018-05-04 08:31] LABS: WHITE BLOOD COUNT 10.4 10^3/ul (4.8-10.8)
[2018-05-04 08:38] LABS: PLATELET COUNT 690 10^3/UL (140-415)
[2018-05-04 08:55] LABS: ANION GAP 11 (8-16); BLOOD UREA NITROGEN 25 mg/dl (7-20); CALCIUM 8.7 mg/dl (8.4-10.2); CARBON DIOXIDE 26 mmol/L (21-31); CHLORIDE 108 mmol/L (97-110); CREATININE 1.21 mg/dl (0.44-1.00); GLUCOSE 161 mg/dl (70-220); POTASSIUM 4.4 mmol/L (3.5-5.1); SODIUM 141 mmol/L (135-144)
[2018-05-04] MEDS: SODIUM HYPOCHLORITE (1/40) 1 APPLIC BTL IRR (09:00)
[2018-05-04] MEDS: SILVER SULFADIAZINE 1% 25 GM CR TOP ×3 (09:07→20:48)
[2018-05-04] MEDS: INSULIN GLARGINE [LANTus] (100 UNITS/ML) SYG SC (09:10)
[2018-05-04 13:37] LABS: HEPATITIS B SURFACE ANTIGEN NEGATIVE (NEGATIVE)
[2018-05-04 14:37] LABS: HEPATITIS C VIRAL ANTIBODY NEGATIVE (NEGATIVE)
[2018-05-04 14:49] LABS: HIV 1&2 ANTIBODY NEGATIVE (NEGATIVE)
[2018-05-04] MEDS: ATORVASTATIN 20 MG TAB PO (20:22)
[2018-05-05] MEDS: PIPER-TAZO 3.375 GM IV (PMX) 100 ML IVPB ×4 (00:35→17:49)
[2018-05-05] MEDS: HYDROmorphONE 1 MG/ML SYG IV ×4 (04:48→20:45)
[2018-05-05 05:09] LABS: ADD MAN DIFF? NO
[2018-05-05 05:11] LABS: WHITE BLOOD COUNT 10.1 10^3/ul (4.8-10.8)
[2018-05-05 05:11] LABS: BASOPHIL # 0.1 10^3/ul (0.0-0.1); BASOPHILS % 0.7 % (0.0-2.0); EOSINOPHILS # 1.2 10^3/ul (0.0-0.5); EOSINOPHILS % 12.1 % (0.0-7.0); HEMATOCRIT 25.2 % (37.0-47.0); LYMPHOCYTES % 19.5 % (15.0-51.0); MEAN CORPUSCULAR HEMOGLOBIN 29.1 pg (29.0-33.0); MEAN CORPUSCULAR HGB CONC 31.7 g/dl (32.0-37.0); MEAN CORPUSCULAR VOLUME 91.6 fl (82.0-101.0); MEAN PLATELET VOLUME 8.8 fl (7.4-10.4); MONOCYTE # 0.6 10^3/ul (0.3-0.9); MONOCYTES % 5.6 % (0.0-11.0); NEUTROPHIL # 6.2 10^3/ul (1.6-7.5); NEUTROPHILS % 61.7 % (39.0-77.0); PLATELET COUNT 605 10^3/UL (140-415); RED BLOOD COUNT 2.75 10^6/ul (4.20-5.40); RED CELL DISTRIBUTION WIDTH 13.8 % (11.5-14.5)
[2018-05-05 05:45] LABS: ANION GAP 10 (8-16); BLOOD UREA NITROGEN 31 mg/dl (7-20); CALCIUM 8.6 mg/dl (8.4-10.2); CARBON DIOXIDE 28 mmol/L (21-31); CHLORIDE 108 mmol/L (97-110); CREATININE 1.45 mg/dl (0.44-1.00); GLUCOSE 207 mg/dl (70-220); POTASSIUM 4.7 mmol/L (3.5-5.1); SODIUM 141 mmol/L (135-144)
[2018-05-05] MEDS: INSULIN GLARGINE [LANTus] (100 UNITS/ML) SYG SC ×2 (08:00→09:57)
[2018-05-05] MEDS: SODIUM HYPOCHLORITE (1/40) 1 APPLIC BTL IRR ×2 (09:00→09:11)
[2018-05-05] MEDS: SILVER SULFADIAZINE 1% 25 GM CR TOP ×3 (09:00→20:30)
[2018-05-05] MEDS: FAMOTIDINE 20 MG INJ IV ×2 (09:01→20:26)
[2018-05-05] MEDS: INSULIN ASPART [NOVOLOG] 3 ML PEN SC ×7 (09:04→20:28)
[2018-05-05] MEDS: HEPARIN 5,000 UNIT/0.5 ML VIAL SC ×2 (09:17→20:29)
[2018-05-05] MEDS: ATORVASTATIN 20 MG TAB PO (20:26)
[2018-05-06] MEDS: PIPER-TAZO 3.375 GM IV (PMX) 100 ML IVPB ×5 (01:06→23:39)
[2018-05-06] MEDS: ACCU-CHEK XX (02:00)
[2018-05-06] MEDS: HYDROmorphONE 1 MG/ML SYG IV ×5 (05:16→21:10)
[2018-05-06 05:26] LABS: ADD MAN DIFF? NO
[2018-05-06 05:32] LABS: BASOPHIL # 0.1 10^3/ul (0.0-0.1); BASOPHILS % 0.9 % (0.0-2.0); EOSINOPHILS # 1.2 10^3/ul (0.0-0.5); EOSINOPHILS % 11.9 % (0.0-7.0); HEMATOCRIT 25.8 % (37.0-47.0); HEMOGLOBIN 8.2 g/dl (12.0-16.0); LYMPHOCYTES % 20.8 % (15.0-51.0); MEAN CORPUSCULAR HEMOGLOBIN 28.9 pg (29.0-33.0); MEAN CORPUSCULAR HGB CONC 31.8 g/dl (32.0-37.0); MEAN CORPUSCULAR VOLUME 90.8 fl (82.0-101.0); MEAN PLATELET VOLUME 8.8 fl (7.4-10.4); MONOCYTE # 0.5 10^3/ul (0.3-0.9); MONOCYTES % 5.4 % (0.0-11.0); NEUTROPHIL # 5.9 10^3/ul (1.6-7.5); NEUTROPHILS % 60.7 % (39.0-77.0); PLATELET COUNT 580 10^3/UL (140-415); RED BLOOD COUNT 2.84 10^6/ul (4.20-5.40); RED CELL DISTRIBUTION WIDTH 13.7 % (11.5-14.5)
[2018-05-06 05:32] LABS: WHITE BLOOD COUNT 9.7 10^3/ul (4.8-10.8)
[2018-05-06 05:51] LABS: ANION GAP 11 (8-16); BLOOD UREA NITROGEN 25 mg/dl (7-20); CALCIUM 8.8 mg/dl (8.4-10.2); CARBON DIOXIDE 26 mmol/L (21-31); CHLORIDE 110 mmol/L (97-110); CREATININE 1.24 mg/dl (0.44-1.00); GLUCOSE 106 mg/dl (70-220); POTASSIUM 4.1 mmol/L (3.5-5.1); SODIUM 143 mmol/L (135-144)
[2018-05-06] MEDS: INSULIN ASPART [NOVOLOG] 3 ML PEN SC ×7 (07:50→21:15)
[2018-05-06] MEDS: SILVER SULFADIAZINE 1% 25 GM CR TOP ×3 (08:26→21:16)
[2018-05-06] MEDS: SODIUM HYPOCHLORITE (1/40) 1 APPLIC BTL IRR (08:26)
[2018-05-06] MEDS: FAMOTIDINE 20 MG INJ IV ×2 (08:29→21:10)
[2018-05-06] MEDS: HEPARIN 5,000 UNIT/0.5 ML VIAL SC ×2 (08:35→21:16)
[2018-05-06] MEDS: INSULIN GLARGINE [LANTus] (100 UNITS/ML) SYG SC (08:41)
[2018-05-06] MEDS: ATORVASTATIN 20 MG TAB PO (21:10)
[2018-05-07] MEDS: ACCU-CHEK XX (02:00)
[2018-05-07] MEDS: HYDROmorphONE 1 MG/ML SYG IV ×5 (02:02→23:51)
[2018-05-07] MEDS: PIPER-TAZO 3.375 GM IV (PMX) 100 ML IVPB ×4 (05:26→23:51)
[2018-05-07] MEDS: INSULIN ASPART [NOVOLOG] 3 ML PEN SC ×7 (07:50→20:37)
[2018-05-07] MEDS: FAMOTIDINE 20 MG INJ IV ×2 (08:23→20:40)
[2018-05-07] MEDS: SODIUM HYPOCHLORITE (1/40) 1 APPLIC BTL IRR (08:24)
[2018-05-07] MEDS: HEPARIN 5,000 UNIT/0.5 ML VIAL SC ×2 (08:27→20:40)
[2018-05-07] MEDS: INSULIN GLARGINE [LANTus] (100 UNITS/ML) SYG SC (08:27)
[2018-05-07] MEDS: SILVER SULFADIAZINE 1% 25 GM CR TOP ×3 (08:28→20:40)
[2018-05-07 10:00] LABS: ANION GAP 11 (8-16); BLOOD UREA NITROGEN 23 mg/dl (7-20); CALCIUM 8.9 mg/dl (8.4-10.2); CARBON DIOXIDE 27 mmol/L (21-31); CHLORIDE 108 mmol/L (97-110); CREATININE 1.32 mg/dl (0.44-1.00); GLUCOSE 130 mg/dl (70-220); SODIUM 142 mmol/L (135-144)
[2018-05-07] MEDS: ATORVASTATIN 20 MG TAB PO (20:40)
[2018-05-08] MEDS: ACCU-CHEK XX (02:00)
[2018-05-08] MEDS: HYDROmorphONE 1 MG/ML SYG IV ×3 (06:21→17:47)
[2018-05-08] MEDS: PIPER-TAZO 3.375 GM IV (PMX) 100 ML IVPB ×4 (06:21→23:41)
[2018-05-08] MEDS: INSULIN ASPART [NOVOLOG] 3 ML PEN SC ×7 (07:50→20:35)
[2018-05-08] MEDS: SILVER SULFADIAZINE 1% 25 GM CR TOP ×3 (08:36→20:38)
[2018-05-08] MEDS: FAMOTIDINE 20 MG INJ IV ×2 (08:36→20:36)
[2018-05-08] MEDS: HEPARIN 5,000 UNIT/0.5 ML VIAL SC ×2 (08:41→20:36)
[2018-05-08] MEDS: INSULIN GLARGINE [LANTus] (100 UNITS/ML) SYG SC (08:42)
[2018-05-08] MEDS: SODIUM HYPOCHLORITE (1/40) 1 APPLIC BTL IRR (08:43)
[2018-05-08] MEDS: ATORVASTATIN 20 MG TAB PO (20:36)
[2018-05-08] MEDS: HYDROCODONE/APAP (5/325) TAB PO (20:53)
[2018-05-09] MEDS: ACCU-CHEK XX (02:00)
[2018-05-09 05:23] LABS: ADD MAN DIFF? NO
[2018-05-09 05:32] LABS: WHITE BLOOD COUNT 8.7 10^3/ul (4.8-10.8)
[2018-05-09 05:32] LABS: BASOPHIL # 0.1 10^3/ul (0.0-0.1); EOSINOPHILS % 11.5 % (0.0-7.0); HEMATOCRIT 24.5 % (37.0-47.0); HEMOGLOBIN 7.9 g/dl (12.0-16.0); LYMPHOCYTES % 22.8 % (15.0-51.0); MEAN CORPUSCULAR HEMOGLOBIN 28.9 pg (29.0-33.0); MEAN CORPUSCULAR HGB CONC 32.2 g/dl (32.0-37.0); MEAN CORPUSCULAR VOLUME 89.7 fl (82.0-101.0); MEAN PLATELET VOLUME 9.1 fl (7.4-10.4); MONOCYTE # 0.6 10^3/ul (0.3-0.9); MONOCYTES % 6.6 % (0.0-11.0); NEUTROPHILS % 57.8 % (39.0-77.0); PLATELET COUNT 558 10^3/UL (140-415); RED BLOOD COUNT 2.73 10^6/ul (4.20-5.40); RED CELL DISTRIBUTION WIDTH 13.8 % (11.5-14.5)
[2018-05-09 05:58] LABS: MAGNESIUM 1.9 mg/dl (1.7-2.5)
[2018-05-09 05:58] LABS: C-REACTIVE PROTEIN 5.1 mg/dl (0.0-0.9); PHOSPHORUS 4.6 mg/dl (2.5-4.9)
[2018-05-09 05:59] LABS: ANION GAP 9 (8-16); BLOOD UREA NITROGEN 26 mg/dl (7-20); CALCIUM 8.7 mg/dl (8.4-10.2); CARBON DIOXIDE 28 mmol/L (21-31); CHLORIDE 108 mmol/L (97-110); CREATININE 1.43 mg/dl (0.44-1.00); GLUCOSE 202 mg/dl (70-220); POTASSIUM 4.2 mmol/L (3.5-5.1); SODIUM 141 mmol/L (135-144)
[2018-05-09] MEDS: PIPER-TAZO 3.375 GM IV (PMX) 100 ML IVPB ×3 (06:23→18:10)
[2018-05-09 07:46] LABS: ERYTHROCYTE SEDIMENTATION RATE 130 mm/Hr (0-20)
[2018-05-09] MEDS: INSULIN ASPART [NOVOLOG] 3 ML PEN SC ×7 (08:21→20:29)
[2018-05-09] MEDS: INSULIN GLARGINE [LANTus] (100 UNITS/ML) SYG SC (08:22)
[2018-05-09] MEDS: HEPARIN 5,000 UNIT/0.5 ML VIAL SC ×2 (08:22→20:30)
[2018-05-09] MEDS: FAMOTIDINE 20 MG INJ IV ×2 (08:26→20:29)
[2018-05-09] MEDS: HYDROmorphONE 1 MG/ML SYG IV ×4 (08:42→22:56)
[2018-05-09] MEDS: SILVER SULFADIAZINE 1% 25 GM CR TOP ×3 (09:00→20:31)
[2018-05-09] MEDS: SODIUM HYPOCHLORITE (1/40) 1 APPLIC BTL IRR (09:00)
[2018-05-09] MEDS: SOD CHLORIDE 0.9% 1,000 ML IV (09:21)
[2018-05-09] MEDS: ATORVASTATIN 20 MG TAB PO (20:29)
[2018-05-10] MEDS: SOD CHLORIDE 0.9% 1,000 ML IV ×2 (00:01→17:41)
[2018-05-10] MEDS: PIPER-TAZO 3.375 GM IV (PMX) 100 ML IVPB ×4 (00:01→17:40)
[2018-05-10] MEDS: HYDROCODONE/APAP (5/325) TAB PO (00:02)
[2018-05-10] MEDS: ACCU-CHEK XX (01:28)
[2018-05-10 05:21] LABS: ADD MAN DIFF? NO
[2018-05-10 05:25] LABS: WHITE BLOOD COUNT 8.9 10^3/ul (4.8-10.8)
[2018-05-10 05:25] LABS: BASOPHIL # 0.1 10^3/ul (0.0-0.1); BASOPHILS % 0.7 % (0.0-2.0); EOSINOPHILS % 11.1 % (0.0-7.0); HEMATOCRIT 24.5 % (37.0-47.0); HEMOGLOBIN 7.9 g/dl (12.0-16.0); LYMPHOCYTES # 2.1 10^3/ul (0.8-2.9); MEAN CORPUSCULAR HEMOGLOBIN 29.2 pg (29.0-33.0); MEAN CORPUSCULAR HGB CONC 32.2 g/dl (32.0-37.0); MEAN CORPUSCULAR VOLUME 90.4 fl (82.0-101.0); MONOCYTE # 0.5 10^3/ul (0.3-0.9); MONOCYTES % 5.8 % (0.0-11.0); NEUTROPHIL # 5.2 10^3/ul (1.6-7.5); NEUTROPHILS % 58.1 % (39.0-77.0); PLATELET COUNT 599 10^3/UL (140-415); RED BLOOD COUNT 2.71 10^6/ul (4.20-5.40); RED CELL DISTRIBUTION WIDTH 13.7 % (11.5-14.5)
[2018-05-10 05:39] LABS: ANION GAP 12 (8-16); BLOOD UREA NITROGEN 24 mg/dl (7-20); CALCIUM 8.7 mg/dl (8.4-10.2); CARBON DIOXIDE 27 mmol/L (21-31); CHLORIDE 108 mmol/L (97-110); CREATININE 1.34 mg/dl (0.44-1.00); GLUCOSE 151 mg/dl (70-220); MAGNESIUM 1.8 mg/dl (1.7-2.5); POTASSIUM 3.8 mmol/L (3.5-5.1); SODIUM 143 mmol/L (135-144)
[2018-05-10 05:39] LABS: PHOSPHORUS 4.7 mg/dl (2.5-4.9)
[2018-05-10] MEDS: INSULIN ASPART [NOVOLOG] 3 ML PEN SC ×7 (07:50→20:16)
[2018-05-10] MEDS: HEPARIN 5,000 UNIT/0.5 ML VIAL SC ×2 (08:27→20:15)
[2018-05-10] MEDS: INSULIN GLARGINE [LANTus] (100 UNITS/ML) SYG SC (08:28)
[2018-05-10] MEDS: FAMOTIDINE 20 MG INJ IV ×2 (08:29→19:59)
[2018-05-10] MEDS: HYDROmorphONE 1 MG/ML SYG IV ×3 (08:35→19:59)
[2018-05-10] MEDS: SODIUM HYPOCHLORITE (1/40) 1 APPLIC BTL IRR (08:39)
[2018-05-10] MEDS: SILVER SULFADIAZINE 1% 25 GM CR TOP ×3 (08:39→20:18)
[2018-05-10] MEDS: ATORVASTATIN 20 MG TAB PO (19:59)
[2018-05-11] MEDS: PIPER-TAZO 3.375 GM IV (PMX) 100 ML IVPB ×5 (00:42→23:24)
[2018-05-11] MEDS: HYDROmorphONE 1 MG/ML SYG IV ×4 (02:15→23:41)
[2018-05-11] MEDS: ACCU-CHEK XX (02:19)
[2018-05-11] MEDS: HYDROCODONE/APAP (5/325) TAB PO (04:59)
[2018-05-11 05:15] LABS: ADD MAN DIFF? NO
[2018-05-11 05:16] LABS: WHITE BLOOD COUNT 9.4 10^3/ul (4.8-10.8)
[2018-05-11 05:16] LABS: BASOPHIL # 0.1 10^3/ul (0.0-0.1); BASOPHILS % 0.9 % (0.0-2.0); EOSINOPHILS # 0.8 10^3/ul (0.0-0.5); EOSINOPHILS % 8.3 % (0.0-7.0); HEMATOCRIT 24.1 % (37.0-47.0); HEMOGLOBIN 7.7 g/dl (12.0-16.0); LYMPHOCYTES # 2.2 10^3/ul (0.8-2.9); LYMPHOCYTES % 23.6 % (15.0-51.0); MEAN CORPUSCULAR HEMOGLOBIN 28.7 pg (29.0-33.0); MEAN CORPUSCULAR VOLUME 89.9 fl (82.0-101.0); MEAN PLATELET VOLUME 8.9 fl (7.4-10.4); MONOCYTE # 0.5 10^3/ul (0.3-0.9); MONOCYTES % 5.4 % (0.0-11.0); NEUTROPHIL # 5.8 10^3/ul (1.6-7.5); NEUTROPHILS % 61.5 % (39.0-77.0); PLATELET COUNT 587 10^3/UL (140-415); RED BLOOD COUNT 2.68 10^6/ul (4.20-5.40); RED CELL DISTRIBUTION WIDTH 13.9 % (11.5-14.5)
[2018-05-11 05:46] LABS: ANION GAP 10 (8-16); BLOOD UREA NITROGEN 19 mg/dl (7-20); CALCIUM 8.6 mg/dl (8.4-10.2); CARBON DIOXIDE 27 mmol/L (21-31); CHLORIDE 108 mmol/L (97-110); CREATININE 1.23 mg/dl (0.44-1.00); GLUCOSE 127 mg/dl (70-220); POTASSIUM 3.9 mmol/L (3.5-5.1); SODIUM 141 mmol/L (135-144)
[2018-05-11 05:51] LABS: MAGNESIUM 1.7 mg/dl (1.7-2.5)
[2018-05-11 05:51] LABS: PHOSPHORUS 4.4 mg/dl (2.5-4.9)
[2018-05-11] MEDS: INSULIN ASPART [NOVOLOG] 3 ML PEN SC ×7 (09:25→21:00)
[2018-05-11] MEDS: FAMOTIDINE 20 MG INJ IV ×2 (09:26→21:30)
[2018-05-11] MEDS: INSULIN GLARGINE [LANTus] (100 UNITS/ML) SYG SC (09:29)
[2018-05-11] MEDS: HEPARIN 5,000 UNIT/0.5 ML VIAL SC ×2 (09:33→21:35)
[2018-05-11] MEDS: ATORVASTATIN 20 MG TAB PO (21:30)
[2018-05-11] MEDS: hydrALAzine 20 MG INJ IV (23:20)
[2018-05-12] MEDS: ACCU-CHEK XX (02:00)
[2018-05-12] MEDS: HYDROmorphONE 1 MG/ML SYG IV ×3 (04:28→21:26)
[2018-05-12 05:50] LABS: ADD MAN DIFF? NO
[2018-05-12 05:56] LABS: BASOPHIL # 0.1 10^3/ul (0.0-0.1); BASOPHILS % 0.7 % (0.0-2.0); EOSINOPHILS # 1.1 10^3/ul (0.0-0.5); HEMOGLOBIN 7.4 g/dl (12.0-16.0); LYMPHOCYTES # 2.6 10^3/ul (0.8-2.9); MEAN CORPUSCULAR HGB CONC 32.2 g/dl (32.0-37.0); MEAN CORPUSCULAR VOLUME 90.2 fl (82.0-101.0); MEAN PLATELET VOLUME 9.1 fl (7.4-10.4); MONOCYTE # 0.6 10^3/ul (0.3-0.9); NEUTROPHIL # 6.3 10^3/ul (1.6-7.5); NEUTROPHILS % 58.9 % (39.0-77.0); PLATELET COUNT 580 10^3/UL (140-415); RED BLOOD COUNT 2.55 10^6/ul (4.20-5.40); RED CELL DISTRIBUTION WIDTH 13.8 % (11.5-14.5)
[2018-05-12 05:56] LABS: WHITE BLOOD COUNT 10.7 10^3/ul (4.8-10.8)
[2018-05-12 06:19] LABS: ANION GAP 12 (8-16); BLOOD UREA NITROGEN 26 mg/dl (7-20); CALCIUM 8.7 mg/dl (8.4-10.2); CARBON DIOXIDE 24 mmol/L (21-31); CHLORIDE 109 mmol/L (97-110); CREATININE 1.22 mg/dl (0.44-1.00); GLUCOSE 135 mg/dl (70-220); POTASSIUM 4.3 mmol/L (3.5-5.1); SODIUM 141 mmol/L (135-144)
[2018-05-12] MEDS: PIPER-TAZO 3.375 GM IV (PMX) 100 ML IVPB ×3 (06:19→18:03)
[2018-05-12 06:21] LABS: MAGNESIUM 1.8 mg/dl (1.7-2.5)
[2018-05-12 06:21] LABS: PHOSPHORUS 4.5 mg/dl (2.5-4.9)
[2018-05-12] MEDS: INSULIN ASPART [NOVOLOG] 3 ML PEN SC ×7 (08:59→21:45)
[2018-05-12] MEDS: INSULIN GLARGINE [LANTus] (100 UNITS/ML) SYG SC (09:01)
[2018-05-12] MEDS: HEPARIN 5,000 UNIT/0.5 ML VIAL SC ×2 (09:02→21:44)
[2018-05-12] MEDS: FAMOTIDINE 20 MG INJ IV ×2 (09:02→21:06)
[2018-05-12] MEDS: HYDROCODONE/APAP (5/325) TAB PO ×2 (09:27→15:16)
[2018-05-12] MEDS: hydrALAzine 20 MG INJ IV (16:13)
[2018-05-12] MEDS: ATORVASTATIN 20 MG TAB PO (21:05)
[2018-05-13] MEDS: PIPER-TAZO 3.375 GM IV (PMX) 100 ML IVPB ×5 (00:32→23:40)
[2018-05-13] MEDS: ACCU-CHEK XX (02:00)
[2018-05-13] MEDS: HYDROmorphONE 1 MG/ML SYG IV ×4 (04:37→18:13)
[2018-05-13 05:17] LABS: ADD MAN DIFF? NO
[2018-05-13 05:20] LABS: BASOPHIL # 0.1 10^3/ul (0.0-0.1); BASOPHILS % 0.7 % (0.0-2.0); EOSINOPHILS % 11.4 % (0.0-7.0); HEMATOCRIT 22.3 % (37.0-47.0); HEMOGLOBIN 7.1 g/dl (12.0-16.0); MEAN CORPUSCULAR HEMOGLOBIN 28.1 pg (29.0-33.0); MEAN CORPUSCULAR HGB CONC 31.8 g/dl (32.0-37.0); MEAN CORPUSCULAR VOLUME 88.1 fl (82.0-101.0); MEAN PLATELET VOLUME 9.1 fl (7.4-10.4); MONOCYTE # 0.6 10^3/ul (0.3-0.9); MONOCYTES % 6.5 % (0.0-11.0); NEUTROPHIL # 5.3 10^3/ul (1.6-7.5); NEUTROPHILS % 59.1 % (39.0-77.0); PLATELET COUNT 570 10^3/UL (140-415); RED BLOOD COUNT 2.53 10^6/ul (4.20-5.40); RED CELL DISTRIBUTION WIDTH 14.1 % (11.5-14.5)
[2018-05-13 05:42] LABS: PHOSPHORUS 4.6 mg/dl (2.5-4.9)
[2018-05-13 05:42] LABS: MAGNESIUM 1.9 mg/dl (1.7-2.5)
[2018-05-13 05:52] LABS: ANION GAP 12 (8-16); BLOOD UREA NITROGEN 24 mg/dl (7-20); CALCIUM 8.8 mg/dl (8.4-10.2); CARBON DIOXIDE 25 mmol/L (21-31); CHLORIDE 110 mmol/L (97-110); CREATININE 1.17 mg/dl (0.44-1.00); GLUCOSE 162 mg/dl (70-220); POTASSIUM 3.9 mmol/L (3.5-5.1); SODIUM 143 mmol/L (135-144)
[2018-05-13] MEDS: INSULIN ASPART [NOVOLOG] 3 ML PEN SC ×7 (07:50→21:00)
[2018-05-13] MEDS: FAMOTIDINE 20 MG INJ IV ×2 (08:52→21:04)
[2018-05-13] MEDS: HEPARIN 5,000 UNIT/0.5 ML VIAL SC ×2 (08:57→21:13)
[2018-05-13] MEDS: INSULIN GLARGINE [LANTus] (100 UNITS/ML) SYG SC (09:04)
[2018-05-13] MEDS: HYDROCODONE/APAP (5/325) TAB PO (11:33)
[2018-05-13] MEDS: ATORVASTATIN 20 MG TAB PO (21:04)
[2018-05-14] MEDS: HYDROmorphONE 1 MG/ML SYG IV ×5 (00:34→22:06)
[2018-05-14] MEDS: ACCU-CHEK XX (02:00)
[2018-05-14] MEDS: HYDROCODONE/APAP (5/325) TAB PO (02:14)
[2018-05-14] MEDS: HYDROmorphONE 0.5 MG/0.5 ML SYG IV (02:56)
[2018-05-14 05:05] LABS: ADD MAN DIFF? NO
[2018-05-14 05:06] LABS: BASOPHIL # 0.1 10^3/ul (0.0-0.1); BASOPHILS % 0.8 % (0.0-2.0); EOSINOPHILS # 0.8 10^3/ul (0.0-0.5); EOSINOPHILS % 7.8 % (0.0-7.0); HEMATOCRIT 22.7 % (37.0-47.0); HEMOGLOBIN 7.3 g/dl (12.0-16.0); LYMPHOCYTES # 2.7 10^3/ul (0.8-2.9); LYMPHOCYTES % 26.4 % (15.0-51.0); MEAN CORPUSCULAR HEMOGLOBIN 28.9 pg (29.0-33.0); MEAN CORPUSCULAR HGB CONC 32.2 g/dl (32.0-37.0); MEAN CORPUSCULAR VOLUME 89.7 fl (82.0-101.0); MONOCYTE # 0.7 10^3/ul (0.3-0.9); MONOCYTES % 6.7 % (0.0-11.0); NEUTROPHIL # 5.8 10^3/ul (1.6-7.5); NEUTROPHILS % 58.1 % (39.0-77.0); PLATELET COUNT 581 10^3/UL (140-415); RED BLOOD COUNT 2.53 10^6/ul (4.20-5.40); RED CELL DISTRIBUTION WIDTH 14.2 % (11.5-14.5)
[2018-05-14] MEDS: PIPER-TAZO 3.375 GM IV (PMX) 100 ML IVPB ×4 (05:28→23:47)
[2018-05-14 05:45] LABS: ANION GAP 11 (8-16); BLOOD UREA NITROGEN 19 mg/dl (7-20); CARBON DIOXIDE 26 mmol/L (21-31); CHLORIDE 108 mmol/L (97-110); CREATININE 1.21 mg/dl (0.44-1.00); GLUCOSE 77 mg/dl (70-220); SODIUM 141 mmol/L (135-144)
[2018-05-14 06:06] LABS: MAGNESIUM 1.8 mg/dl (1.7-2.5)
[2018-05-14 06:06] LABS: PHOSPHORUS 4.7 mg/dl (2.5-4.9)
[2018-05-14] MEDS: INSULIN ASPART [NOVOLOG] 3 ML PEN SC ×8 (07:50→21:31)
[2018-05-14] MEDS: FAMOTIDINE 20 MG INJ IV ×2 (08:51→21:12)
[2018-05-14] MEDS: HEPARIN 5,000 UNIT/0.5 ML VIAL SC (08:53)
[2018-05-14] MEDS: ATORVASTATIN 20 MG TAB PO (21:12)
[2018-05-14] MEDS ORDERED: GLUCOSE GEL 15 GRAM TUBE PO ×2 (21:30)
[2018-05-14] MEDS ORDERED: GLUCOSE GEL 15 GRAM TUBE BUCCAL (21:30)
[2018-05-14] MEDS ORDERED: GLUCAGON 1 MG INJ IM (21:30)
[2018-05-14] MEDS ORDERED: DEXTROSE 50% 50 ML SYRINGE IV ×2 (21:30)
[2018-05-15] MEDS: ACCU-CHEK XX (01:45)
[2018-05-15] MEDS: HYDROmorphONE 1 MG/ML SYG IV ×4 (04:35→22:40)
[2018-05-15 05:08] LABS: ADD MAN DIFF? NO
[2018-05-15 05:22] LABS: BASOPHIL # 0.1 10^3/ul (0.0-0.1); BASOPHILS % 0.8 % (0.0-2.0); EOSINOPHILS % 10.5 % (0.0-7.0); HEMATOCRIT 23.4 % (37.0-47.0); HEMOGLOBIN 7.5 g/dl (12.0-16.0); LYMPHOCYTES # 2.4 10^3/ul (0.8-2.9); LYMPHOCYTES % 24.1 % (15.0-51.0); MEAN CORPUSCULAR HEMOGLOBIN 28.8 pg (29.0-33.0); MEAN CORPUSCULAR HGB CONC 32.1 g/dl (32.0-37.0); MONOCYTE # 0.7 10^3/ul (0.3-0.9); MONOCYTES % 7.3 % (0.0-11.0); NEUTROPHIL # 5.6 10^3/ul (1.6-7.5); PLATELET COUNT 588 10^3/UL (140-415); RED CELL DISTRIBUTION WIDTH 14.1 % (11.5-14.5)
[2018-05-15 05:22] LABS: WHITE BLOOD COUNT 9.8 10^3/ul (4.8-10.8)
[2018-05-15 05:36] LABS: PT RATIO 1.1
[2018-05-15] MEDS: PIPER-TAZO 3.375 GM IV (PMX) 100 ML IVPB ×3 (05:45→17:45)
[2018-05-15 05:49] LABS: INR 1.11; PARTIAL THROMBOPLASTIN TIME 32.1 Sec (25.0-35.0); PROTIME 14.5 Sec (11.9-14.9)
[2018-05-15 06:06] LABS: MAGNESIUM 1.7 mg/dl (1.7-2.5)
[2018-05-15 06:06] LABS: PHOSPHORUS 4.5 mg/dl (2.5-4.9)
[2018-05-15 06:19] LABS: ANION GAP 12 (8-16); BLOOD UREA NITROGEN 24 mg/dl (7-20); CALCIUM 8.7 mg/dl (8.4-10.2); CARBON DIOXIDE 25 mmol/L (21-31); CHLORIDE 108 mmol/L (97-110); CREATININE 1.24 mg/dl (0.44-1.00); GLUCOSE 214 mg/dl (70-220); POTASSIUM 4.6 mmol/L (3.5-5.1); SODIUM 140 mmol/L (135-144)
[2018-05-15] MEDS ORDERED: METOCLOPRAMIDE 10 MG INJ ×2 (07:00→08:34)
[2018-05-15] MEDS ORDERED: PROPOFOL 40 ML (07:03)
[2018-05-15] MEDS ORDERED: FENTAnyl 50 MCG/ML VIAL ×2 (07:03→08:18)
[2018-05-15] MEDS ORDERED: MIDAZOLAM 1 MG/ML 2 ML INJ (07:03)
[2018-05-15] MEDS ORDERED: LIDOCAINE 2% (SDV) 5 ML INJ (07:03)
[2018-05-15] MEDS ORDERED: ONDANSETRON 4 MG INJ ×2 (07:04→08:34)
[2018-05-15] MEDS ORDERED: FAMOTIDINE 20 MG INJ ×2 (07:04→08:34)
[2018-05-15] MEDS ORDERED: BUPIVACAINE 0.5% (SDV) 30 ML INJ (07:26)
[2018-05-15] MEDS: INSULIN ASPART [NOVOLOG] 3 ML PEN SC ×7 (07:50→21:00)
[2018-05-15] MEDS ORDERED: HYDROmorphONE 1 MG/5 ML IV SYRINGE IV (08:00)
[2018-05-15] MEDS ORDERED: MEPERIDINE 25 MG INJ IV (08:00)
[2018-05-15] MEDS ORDERED: EPHEDrine SULFATE 50 MG/5 ML SYG IV (08:00)
[2018-05-15] MEDS ORDERED: DIPHENHYDRAMINE 50 MG INJ IV (08:00)
[2018-05-15] MEDS ORDERED: LABETALOL HCL 20MG INJ IV (08:00)
[2018-05-15] MEDS ORDERED: METOCLOPRAMIDE 10 MG INJ IV (08:00)
[2018-05-15] MEDS ORDERED: ONDANSETRON 4 MG INJ IV (08:00)
[2018-05-15] MEDS ORDERED: hydrALAzine 20 MG INJ IV (08:00)
[2018-05-15] MEDS ORDERED: FENTAnyl 50 MCG/ML VIAL IV ×2 (08:00)
[2018-05-15] MEDS ORDERED: OXYCODONE/ACETAMINOPHEN (5/325) TAB PO (08:00)
[2018-05-15] MEDS ORDERED: hydrALAzine 20 MG INJ (08:40)
[2018-05-15] MEDS: LIDOCAINE 1% (MDV) 20 ML INJ (08:53)
[2018-05-15] MEDS: FAMOTIDINE 20 MG INJ IV ×2 (09:00→20:34)
[2018-05-15] MEDS ORDERED: CEFAZOLIN 1 GM INJ (09:12)
[2018-05-15] MEDS: HYDROmorphONE 1 MG/5 ML IV SYRINGE IV (10:25)
[2018-05-15] MEDS: INSULIN GLARGINE [LANTus] (100 UNITS/ML) SYG SC (13:08)
[2018-05-15] MEDS: ATORVASTATIN 20 MG TAB PO (20:34)
[2018-05-15 20:54] LABS: IMMEDIATE SPIN CROSSMATCH 1 2
[2018-05-16] MEDS: PIPER-TAZO 3.375 GM IV (PMX) 100 ML IVPB ×5 (01:12→22:55)
[2018-05-16] MEDS: ACCU-CHEK XX (02:00)
[2018-05-16] MEDS: HYDROmorphONE 1 MG/ML SYG IV ×5 (03:46→22:55)
[2018-05-16] MEDS: INSULIN ASPART [NOVOLOG] 3 ML PEN SC ×7 (07:50→20:23)
[2018-05-16] MEDS: FAMOTIDINE 20 MG INJ IV ×2 (08:27→20:21)
[2018-05-16] MEDS: HEPARIN 5,000 UNIT/0.5 ML VIAL SC ×2 (08:28→20:22)
[2018-05-16 08:57] LABS: ADD MAN DIFF? NO
[2018-05-16 09:07] LABS: WHITE BLOOD COUNT 8.5 10^3/ul (4.8-10.8)
[2018-05-16 09:07] LABS: BASOPHIL # 0.1 10^3/ul (0.0-0.1); BASOPHILS % 0.6 % (0.0-2.0); EOSINOPHILS # 0.8 10^3/ul (0.0-0.5); EOSINOPHILS % 9.4 % (0.0-7.0); HEMATOCRIT 28.1 % (37.0-47.0); HEMOGLOBIN 9.1 g/dl (12.0-16.0); LYMPHOCYTES # 2.3 10^3/ul (0.8-2.9); LYMPHOCYTES % 26.7 % (15.0-51.0); MEAN CORPUSCULAR HGB CONC 32.4 g/dl (32.0-37.0); MEAN CORPUSCULAR VOLUME 89.5 fl (82.0-101.0); MEAN PLATELET VOLUME 8.9 fl (7.4-10.4); MONOCYTE # 0.6 10^3/ul (0.3-0.9); MONOCYTES % 7.2 % (0.0-11.0); NEUTROPHIL # 4.8 10^3/ul (1.6-7.5); NEUTROPHILS % 55.9 % (39.0-77.0); PLATELET COUNT 516 10^3/UL (140-415); RED BLOOD COUNT 3.14 10^6/ul (4.20-5.40); RED CELL DISTRIBUTION WIDTH 14.6 % (11.5-14.5)
[2018-05-16 09:20] LABS: ANION GAP 10 (8-16); BLOOD UREA NITROGEN 19 mg/dl (7-20); CARBON DIOXIDE 25 mmol/L (21-31); CHLORIDE 110 mmol/L (97-110); CREATININE 1.28 mg/dl (0.44-1.00); GLUCOSE 64 mg/dl (70-220); POTASSIUM 4.4 mmol/L (3.5-5.1); SODIUM 141 mmol/L (135-144)
[2018-05-16] MEDS: ATORVASTATIN 20 MG TAB PO (20:21)
[2018-05-17] MEDS: ACCU-CHEK XX (01:29)
[2018-05-17] MEDS: HYDROCODONE/APAP (5/325) TAB PO ×3 (01:46→21:17)
[2018-05-17] MEDS: PIPER-TAZO 3.375 GM IV (PMX) 100 ML IVPB ×4 (05:14→23:12)
[2018-05-17] MEDS: HYDROmorphONE 1 MG/ML SYG IV ×4 (07:43→22:25)
[2018-05-17] MEDS: INSULIN ASPART [NOVOLOG] 3 ML PEN SC ×7 (07:50→21:00)
[2018-05-17] MEDS: INSULIN GLARGINE [LANTus] (100 UNITS/ML) SYG SC (08:50)
[2018-05-17] MEDS: HEPARIN 5,000 UNIT/0.5 ML VIAL SC ×2 (08:55→21:05)
[2018-05-17] MEDS: FAMOTIDINE 20 MG INJ IV ×2 (10:10→20:57)
[2018-05-17] MEDS: ATORVASTATIN 20 MG TAB PO (20:57)
[2018-05-17] MEDS: hydrALAzine 20 MG INJ IV (21:46)
[2018-05-18] MEDS: ACCU-CHEK XX (01:35)
[2018-05-18] MEDS: HYDROmorphONE 1 MG/ML SYG IV ×3 (04:45→13:26)
[2018-05-18 05:02] LABS: ADD MAN DIFF? NO
[2018-05-18 05:07] LABS: WHITE BLOOD COUNT 9.9 10^3/ul (4.8-10.8)
[2018-05-18 05:07] LABS: BASOPHIL # 0.1 10^3/ul (0.0-0.1); BASOPHILS % 0.6 % (0.0-2.0); EOSINOPHILS # 1.4 10^3/ul (0.0-0.5); EOSINOPHILS % 14.2 % (0.0-7.0); HEMATOCRIT 33.5 % (37.0-47.0); LYMPHOCYTES # 2.7 10^3/ul (0.8-2.9); LYMPHOCYTES % 26.8 % (15.0-51.0); MEAN CORPUSCULAR HEMOGLOBIN 29.3 pg (29.0-33.0); MEAN CORPUSCULAR HGB CONC 32.8 g/dl (32.0-37.0); MEAN CORPUSCULAR VOLUME 89.1 fl (82.0-101.0); MEAN PLATELET VOLUME 8.7 fl (7.4-10.4); MONOCYTE # 0.6 10^3/ul (0.3-0.9); MONOCYTES % 6.4 % (0.0-11.0); NEUTROPHIL # 5.1 10^3/ul (1.6-7.5); NEUTROPHILS % 51.8 % (39.0-77.0); PLATELET COUNT 613 10^3/UL (140-415); RED BLOOD COUNT 3.76 10^6/ul (4.20-5.40); RED CELL DISTRIBUTION WIDTH 14.1 % (11.5-14.5)
[2018-05-18] MEDS: PIPER-TAZO 3.375 GM IV (PMX) 100 ML IVPB ×2 (05:28→12:47)
[2018-05-18 05:40] LABS: ANION GAP 13 (8-16); BLOOD UREA NITROGEN 19 mg/dl (7-20); CALCIUM 9.2 mg/dl (8.4-10.2); CARBON DIOXIDE 27 mmol/L (21-31); CHLORIDE 106 mmol/L (97-110); CREATININE 1.39 mg/dl (0.44-1.00); GLUCOSE 141 mg/dl (70-220); POTASSIUM 4.4 mmol/L (3.5-5.1); SODIUM 142 mmol/L (135-144)
[2018-05-18] MEDS: INSULIN ASPART [NOVOLOG] 3 ML PEN SC ×4 (08:56→12:45)
[2018-05-18] MEDS: INSULIN GLARGINE [LANTus] (100 UNITS/ML) SYG SC (09:02)
[2018-05-18] MEDS: HEPARIN 5,000 UNIT/0.5 ML VIAL SC (09:03)
[2018-05-18] MEDS: FAMOTIDINE 20 MG INJ IV (09:06)
== END 2018-05-18 16:00 | disposition home or self-care (01) | DRG 255 ==
LOC: E/R 18:35 → MS1 04-26 23:19 → ICU 04-18 → 6WM 04-19 20:23 → ICU 04-18 02:02
PROC: 0J9N0ZZ Drainage of Right Lower Leg Subcutaneous Tissue and Fascia, Open Approach (ICD-10-PCS; 2018-04-18 15:00)
PROC: 0Y6P0Z1 Detachment at Right 1st Toe, High, Open Approach (ICD-10-PCS; principal; 2018-04-18 17:35)
PROC: 0JBP0ZZ Excision of Left Lower Leg Subcutaneous Tissue and Fascia, Open Approach (ICD-10-PCS; 2018-04-18 17:35)
PROC: 0HRLXK3 Replacement of Left Lower Leg Skin with Nonautologous Tissue Substitute, Full Thickness, External Approach (ICD-10-PCS; 2018-04-18 17:35)
PROC: 0LBN0ZZ Excision of Right Lower Leg Tendon, Open Approach (ICD-10-PCS; 2018-04-18 17:35)
PROC: 0HRKXK3 Replacement of Right Lower Leg Skin with Nonautologous Tissue Substitute, Full Thickness, External Approach (ICD-10-PCS; 2018-04-18 17:35)
PROC: 0Y6X0Z1 Detachment at Right 5th Toe, High, Open Approach (ICD-10-PCS; 2018-04-18 17:35)
PROC: 0Y6V0Z1 Detachment at Right 4th Toe, High, Open Approach (ICD-10-PCS; 2018-04-18 17:35)
PROC: 0Y6T0Z1 Detachment at Right 3rd Toe, High, Open Approach (ICD-10-PCS; 2018-04-18 17:35)
PROC: 0Y6R0Z1 Detachment at Right 2nd Toe, High, Open Approach (ICD-10-PCS; 2018-04-18 17:35)
PROC: 0JBP0ZZ Excision of Left Lower Leg Subcutaneous Tissue and Fascia, Open Approach (ICD-10-PCS; 2018-04-18 17:35)
PROC: 0QBJ0ZZ Excision of Right Fibula, Open Approach (ICD-10-PCS; 2018-04-18 17:35)
PROC: 0HRLXK3 Replacement of Left Lower Leg Skin with Nonautologous Tissue Substitute, Full Thickness, External Approach (ICD-10-PCS; 2018-04-18 17:35)
PROC: 0HRKXK3 Replacement of Right Lower Leg Skin with Nonautologous Tissue Substitute, Full Thickness, External Approach (ICD-10-PCS; 2018-04-18 17:35)
PROC: 02HV33Z Insertion of Infusion Device into Superior Vena Cava, Percutaneous Approach (ICD-10-PCS; 2018-04-18 17:35)
PROC: 30233N1 Transfusion of Nonautologous Red Blood Cells into Peripheral Vein, Percutaneous Approach (ICD-10-PCS; 2018-04-18 17:35)
DX: E11.52 Type 2 diabetes mellitus with diabetic peripheral angiopathy with gangrene (principal); A48.0 Gas gangrene; I70.261 Atherosclerosis of native arteries of extremities with gangrene, right leg; M86.9 Osteomyelitis, unspecified; E87.1 Hypo-osmolality and hyponatremia; L03.115 Cellulitis of right lower limb; L02.611 Cutaneous abscess of right foot; N17.9 Acute kidney failure, unspecified; E11.628 Type 2 diabetes mellitus with other skin complications; E11.621 Type 2 diabetes mellitus with foot ulcer; E11.65 Type 2 diabetes mellitus with hyperglycemia; Z91.14 Patient's other noncompliance with medication regimen; D63.8 Anemia in other chronic diseases classified elsewhere; E11.42 Type 2 diabetes mellitus with diabetic polyneuropathy; Z59.0 Homelessness; B95.8 Unspecified staphylococcus as the cause of diseases classified elsewhere; D47.3 Essential (hemorrhagic) thrombocythemia; I70.249 Atherosclerosis of native arteries of left leg with ulceration of unspecified site; B96.20 Unspecified Escherichia coli [E. coli] as the cause of diseases classified elsewhere; B95.61 Methicillin susceptible Staphylococcus aureus infection as the cause of diseases classified elsewhere; B96.4 Proteus (mirabilis) (morganii) as the cause of diseases classified elsewhere; B95.1 Streptococcus, group B, as the cause of diseases classified elsewhere
CPT/HCPCS: 36430; 36569; 36600; 71045; 73630; 73700; 76937; 80048; 80053; 80061; 81003; 82270; 82728; 82803; 82962; 83036; 83540; 83605; 83735; 84100; 84132; 84145; 84484; 84703; 85014; 85018; 85025; 85610; 85651; 85730; 86140; 86703; 86803; 86850; 86900; 86901; 86920; 87040; 87070; 87086; 87340; 88304; 88307; 93005; 93922; 94664; 96374; 96375; 97110; 97116; 97162; 97530; 99291-25

== ENCOUNTER 2018-07-11 10:31 | Day surgery (SDC) | payer OTHER ==
[2018-07-11 11:48] LABS: ADD MAN DIFF? NO
[2018-07-11 11:52] LABS: BASOPHIL # 0.1 10^3/ul (0.0-0.1); BASOPHILS % 0.5 % (0.0-2.0); EOSINOPHILS # 0.3 10^3/ul (0.0-0.5); EOSINOPHILS % 2.5 % (0.0-7.0); HEMATOCRIT 35.7 % (37.0-47.0); HEMOGLOBIN 11.5 g/dl (12.0-16.0); LYMPHOCYTES # 3.1 10^3/ul (0.8-2.9); LYMPHOCYTES % 30.1 % (15.0-51.0); MEAN CORPUSCULAR HEMOGLOBIN 28.2 pg (29.0-33.0); MEAN CORPUSCULAR HGB CONC 32.2 g/dl (32.0-37.0); MEAN CORPUSCULAR VOLUME 87.5 fl (82.0-101.0); MEAN PLATELET VOLUME 9.3 fl (7.4-10.4); MONOCYTE # 0.6 10^3/ul (0.3-0.9); MONOCYTES % 5.4 % (0.0-11.0); NEUTROPHIL # 6.3 10^3/ul (1.6-7.5); PLATELET COUNT 515 10^3/UL (140-415); RED BLOOD COUNT 4.08 10^6/ul (4.20-5.40); RED CELL DISTRIBUTION WIDTH 13.7 % (11.5-14.5)
[2018-07-11 11:52] LABS: WHITE BLOOD COUNT 10.3 10^3/ul (4.8-10.8)
[2018-07-11 12:10] LABS: INR 0.93; PROTIME 12.5 Sec (11.9-14.9)
[2018-07-11 12:11] LABS: PARTIAL THROMBOPLASTIN TIME 26.4 Sec (23.0-35.0)
[2018-07-11 12:19] LABS: ANION GAP 9 (5-13); BLOOD UREA NITROGEN 33 mg/dl (7-20); CALCIUM 9.3 mg/dl (8.4-10.2); CARBON DIOXIDE 23 mmol/L (21-31); CHLORIDE 108 mmol/L (97-110); Estimated GFR > 60 mL/min (>60); GLUCOSE 128 mg/dl (70-220); POTASSIUM 4.3 mmol/L (3.5-5.1); SODIUM 140 mmol/L (135-144)
[2018-07-11] MEDS ORDERED: LIDOCAINE 1% (STERILE-PAK) 30 ML INJ (12:20)
[2018-07-11] MEDS ORDERED: FENTAnyl 50 MCG/ML VIAL (14:08)
[2018-07-11] MEDS ORDERED: MIDAZOLAM 1 MG/ML 2 ML INJ (14:08)
[2018-07-11] MEDS ORDERED: PIPERACILLIN IV (14:30)
[2018-07-11] MEDS ORDERED: TAZO IV (14:30)
[2018-07-11] MEDS: CEFAZOLIN 1 GM INJ (14:48)
[2018-07-11] MEDS ORDERED: LIDOCAINE 2% (SDV) 5 ML INJ (15:06)
[2018-07-11] MEDS ORDERED: PROPOFOL 40 ML (15:06)
[2018-07-11] MEDS ORDERED: CEFAZOLIN 1 GM INJ (15:07)
[2018-07-11] MEDS ORDERED: HYDROmorphONE 1 MG/5 ML IV SYRINGE IV ×3 (15:23→15:30)
[2018-07-11] MEDS ORDERED: OXYCODONE/ACETAMINOPHEN (5/325) TAB PO (15:30)
[2018-07-11] MEDS ORDERED: DIPHENHYDRAMINE 50 MG INJ IV (15:30)
[2018-07-11] MEDS ORDERED: FENTAnyl 50 MCG/ML VIAL IV (15:30)
[2018-07-11] MEDS ORDERED: METOCLOPRAMIDE 10 MG INJ IV (15:30)
[2018-07-11] MEDS ORDERED: ONDANSETRON 4 MG INJ IV (15:30)
[2018-07-11] MEDS ORDERED: MEPERIDINE 25 MG INJ IV (15:30)
[2018-07-11] MEDS ORDERED: LABETALOL HCL 20MG INJ IV (15:30)
[2018-07-11] MEDS ORDERED: hydrALAzine 20 MG INJ IV (15:30)
[2018-07-11] MEDS ORDERED: DEXTROSE 50% 50 ML SYRINGE (15:47)
[2018-07-11] MEDS ORDERED: DEXTROSE 50% 50 ML SYRINGE IV (16:00)
== END 2018-07-11 16:47 | disposition home or self-care (01) ==
LOC: SDS 10:31
DX: I70.248 Atherosclerosis of native arteries of left leg with ulceration of other part of lower leg (principal); L97.829 Non-pressure chronic ulcer of other part of left lower leg with unspecified severity; I70.261 Atherosclerosis of native arteries of extremities with gangrene, right leg; E11.9 Type 2 diabetes mellitus without complications; I10 Essential (primary) hypertension
CPT/HCPCS: 11044; 80048; 82962; 85025; 85610; 85730

== ENCOUNTER 2018-07-25 10:57 | Day surgery (SDC) | payer OTHER ==
[2018-07-25 12:01] LABS: ADD MAN DIFF? NO
[2018-07-25] MEDS: INSULIN REGULAR, HUMAN 100 UNIT/1 ML 3ML VIAL SC (12:04)
[2018-07-25 12:05] LABS: BASOPHIL # 0.1 10^3/ul (0.0-0.1); BASOPHILS % 0.6 % (0.0-2.0); EOSINOPHILS # 0.2 10^3/ul (0.0-0.5); EOSINOPHILS % 1.8 % (0.0-7.0); HEMATOCRIT 32.6 % (37.0-47.0); HEMOGLOBIN 10.4 g/dl (12.0-16.0); LYMPHOCYTES # 2.2 10^3/ul (0.8-2.9); LYMPHOCYTES % 21.6 % (15.0-51.0); MEAN CORPUSCULAR HEMOGLOBIN 28.8 pg (29.0-33.0); MEAN CORPUSCULAR HGB CONC 31.9 g/dl (32.0-37.0); MEAN CORPUSCULAR VOLUME 90.3 fl (82.0-101.0); MEAN PLATELET VOLUME 9.4 fl (7.4-10.4); MONOCYTE # 0.4 10^3/ul (0.3-0.9); MONOCYTES % 3.8 % (0.0-11.0); NEUTROPHIL # 7.5 10^3/ul (1.6-7.5); NEUTROPHILS % 71.6 % (39.0-77.0); PLATELET COUNT 577 10^3/UL (140-415); RED BLOOD COUNT 3.61 10^6/ul (4.20-5.40); RED CELL DISTRIBUTION WIDTH 14.8 % (11.5-14.5)
[2018-07-25 12:05] LABS: WHITE BLOOD COUNT 10.4 10^3/ul (4.8-10.8)
[2018-07-25 12:11] LABS: ALANINE AMINOTRANSFERASE 11 IU/L (13-69); ALBUMIN 3.6 g/dl (3.3-4.9); ALBUMIN/GLOBULIN RATIO 0.97; ALKALINE PHOSPHATASE 166 IU/L (42-121); ANION GAP 11 (5-13); ASPARTATE AMINO TRANSFERASE 15 IU/L (15-46); BILIRUBIN,INDIRECT 0.3 mg/dl (0-1.1); BILIRUBIN,TOTAL 0.3 mg/dl (0.2-1.3); BLOOD UREA NITROGEN 28 mg/dl (7-20); CALCIUM 9.1 mg/dl (8.4-10.2); CARBON DIOXIDE 26 mmol/L (21-31); CHLORIDE 105 mmol/L (97-110); CREATININE 0.94 mg/dl (0.44-1.00); Estimated GFR > 60 mL/min (>60); POTASSIUM 4.8 mmol/L (3.5-5.1); SODIUM 142 mmol/L (135-144); TOTAL PROTEIN 7.3 g/dl (6.1-8.1)
[2018-07-25 12:12] LABS: PARTIAL THROMBOPLASTIN TIME 28.1 Sec (23.0-35.0); PROTIME 13.3 Sec (11.9-14.9)
[2018-07-25 12:15] LABS: GLUCOSE 295 mg/dl (70-220)
[2018-07-25] MEDS ORDERED: FENTAnyl 50 MCG/ML VIAL (12:49)
[2018-07-25] MEDS ORDERED: MIDAZOLAM 1 MG/ML 2 ML INJ (12:49)
[2018-07-25] MEDS ORDERED: CEFAZOLIN 1 GM INJ (13:41)
[2018-07-25] MEDS ORDERED: PROPOFOL 40 ML (13:41)
[2018-07-25] MEDS ORDERED: LIDOCAINE 2% (SDV) 5 ML INJ (13:41)
[2018-07-25] MEDS ORDERED: DIPHENHYDRAMINE 50 MG INJ IV (14:00)
[2018-07-25] MEDS ORDERED: HYDROmorphONE 1 MG/5 ML IV SYRINGE IV ×3 (14:00→14:01)
[2018-07-25] MEDS ORDERED: ONDANSETRON 4 MG INJ IV (14:00)
[2018-07-25] MEDS ORDERED: FENTAnyl 50 MCG/ML VIAL IV (14:00)
[2018-07-25] MEDS ORDERED: LABETALOL HCL 20MG INJ IV (14:00)
[2018-07-25] MEDS ORDERED: MEPERIDINE 25 MG INJ IV (14:00)
[2018-07-25] MEDS ORDERED: hydrALAzine 20 MG INJ IV (14:00)
== END 2018-07-25 16:46 | disposition home or self-care (01) ==
LOC: SDS 10:57
DX: I70.248 Atherosclerosis of native arteries of left leg with ulceration of other part of lower leg (principal); L97.829 Non-pressure chronic ulcer of other part of left lower leg with unspecified severity; I70.261 Atherosclerosis of native arteries of extremities with gangrene, right leg; E11.9 Type 2 diabetes mellitus without complications; I10 Essential (primary) hypertension
CPT/HCPCS: 11044; 80053; 82962; 84703; 85025; 85610; 85730

== ENCOUNTER 2018-08-08 09:03 | Day surgery (SDC) | payer OTHER ==
[2018-08-08 11:20] LABS: HEMATOCRIT 29.9 % (37.0-47.0); HEMOGLOBIN 9.7 g/dl (12.0-16.0); MEAN CORPUSCULAR HEMOGLOBIN 28.5 pg (29.0-33.0); MEAN CORPUSCULAR HGB CONC 32.4 g/dl (32.0-37.0); MEAN CORPUSCULAR VOLUME 87.9 fl (82.0-101.0); MEAN PLATELET VOLUME 8.9 fl (7.4-10.4); PLATELET COUNT 621 10^3/UL (140-415); RED CELL DISTRIBUTION WIDTH 13.8 % (11.5-14.5)
[2018-08-08 11:20] LABS: WHITE BLOOD COUNT 7.4 10^3/ul (4.8-10.8)
[2018-08-08 11:37] LABS: ANION GAP 8 (5-13); CALCIUM 9.1 mg/dl (8.4-10.2); CARBON DIOXIDE 28 mmol/L (21-31); CHLORIDE 101 mmol/L (97-110); CREATININE 0.99 mg/dl (0.44-1.00); Estimated GFR > 60 mL/min (>60); GLUCOSE 67 mg/dl (70-220); POTASSIUM 4.6 mmol/L (3.5-5.1); SODIUM 137 mmol/L (135-144)
[2018-08-08 11:38] LABS: ADD MAN DIFF? YES; HOLD TRANSMISSIONS 1
[2018-08-08 11:39] LABS: BLOOD UREA NITROGEN 29 mg/dl (7-20)
[2018-08-08 11:41] LABS: INR 0.96; PROTIME 12.9 Sec (11.9-14.9)
[2018-08-08 12:09] LABS: PARTIAL THROMBOPLASTIN TIME 20.1 Sec (23.0-35.0)
[2018-08-08 12:27] LABS: ANISOCYTOSIS 1+ (0-0); BAND NEUTROPHILS #M 0.5 10^3/ul (0.0-0.6); BAND NEUTROPHILS % (M) 7 % (0-4); BASOPHIL #M 0.1 10^3/ul (0.0-0.0); BASOPHILS % (M) 2 % (0-2); EOSINOPHILS % (M) 5 % (0-7); GIANT THROMBO% (M) 1 % (0-0); LYMPHOCYTES #M 2.2 10^3/ul (0.8-2.9); LYMPHOCYTES % (M) 30 % (15-51); MONOCYTE #M 0.5 10^3/ul (0.3-0.9); MONOCYTES % (M) 7 % (0-11); PLATELET ESTIMATE INCREASED; POLYCHROMASIA 1+ (0-0); REACTIVE LYMPHOCYTES #M 0.7 10^3/ul (0.0-0.0); REACTIVE LYMPHOCYTES% (M) 10 % (0-0); SEG NEUT #M 2.9 10^3/ul (1.6-7.5); SEGMENTED NEUTROPHILS (M) % 39 % (39-77); SMUDGE%M 9 % (0-0)
[2018-08-08] MEDS ORDERED: DEXTROSE 50% 50 ML SYRINGE ×2 (13:22→16:21)
[2018-08-08] MEDS: DEXTROSE 50% 50 ML SYRINGE IV (13:26)
[2018-08-08] MEDS ORDERED: HYDROmorphONE 1 MG/5 ML IV SYRINGE IV (14:30)
[2018-08-08] MEDS ORDERED: LABETALOL HCL 20MG INJ IV (14:30)
[2018-08-08] MEDS ORDERED: FENTAnyl 50 MCG/ML VIAL IV ×2 (14:30)
[2018-08-08] MEDS ORDERED: ONDANSETRON 4 MG INJ IV (14:30)
[2018-08-08] MEDS ORDERED: MEPERIDINE 25 MG INJ IV (14:30)
[2018-08-08] MEDS ORDERED: METOCLOPRAMIDE 10 MG INJ IV (14:30)
[2018-08-08] MEDS ORDERED: hydrALAzine 20 MG INJ IV (14:30)
[2018-08-08] MEDS ORDERED: MIDAZOLAM 1 MG/ML 2 ML INJ (15:45)
[2018-08-08] MEDS ORDERED: FENTAnyl 50 MCG/ML VIAL (15:45)
[2018-08-08] MEDS ORDERED: LIDOCAINE 1% (STERILE-PAK) 30 ML INJ (15:45)
[2018-08-08] MEDS ORDERED: CEFAZOLIN 1 GM INJ (16:21)
[2018-08-08] MEDS: HYDROmorphONE 1 MG/5 ML IV SYRINGE IV ×2 (17:12→17:21)
== END 2018-08-08 18:04 | disposition home or self-care (01) ==
LOC: SDS 09:03
DX: E11.51 Type 2 diabetes mellitus with diabetic peripheral angiopathy without gangrene (principal); I70.261 Atherosclerosis of native arteries of extremities with gangrene, right leg
CPT/HCPCS: 11044; 80048; 82962; 85025; 85610; 85730

== ENCOUNTER 2018-08-31 14:56 | Day surgery (SDC) | payer OTHER ==
[~2018-08-31 14:56] MED LIST: CEFAZOLIN 1 GM INJ; CEFAZOLIN 2 GM/50 ML (PMX) 50 ML IVPB; DEXTROSE 50% 50 ML SYRINGE; LIDOCAINE 1% (MPF) 30 ML INJ
[2018-08-31] MEDS ORDERED: MIDAZOLAM 1 MG/ML 2 ML INJ (15:40)
[2018-08-31] MEDS ORDERED: FENTAnyl 50 MCG/ML VIAL (15:40)
[2018-08-31] MEDS ORDERED: METOCLOPRAMIDE 10 MG INJ IV (16:00)
[2018-08-31] MEDS ORDERED: LABETALOL HCL 20MG INJ IV (16:00)
[2018-08-31] MEDS ORDERED: hydrALAzine 20 MG INJ IV (16:00)
[2018-08-31] MEDS ORDERED: ONDANSETRON 4 MG INJ IV (16:00)
[2018-08-31] MEDS ORDERED: FENTAnyl 50 MCG/ML VIAL IV ×2 (16:00)
[2018-08-31] MEDS ORDERED: HYDROmorphONE 1 MG/5 ML IV SYRINGE IV (16:00)
[2018-08-31 16:02] LABS: WHITE BLOOD COUNT 6.3 10^3/ul (4.8-10.8)
[2018-08-31 16:02] LABS: HEMATOCRIT 28.6 % (37.0-47.0); HEMOGLOBIN 9.4 g/dl (12.0-16.0); MEAN CORPUSCULAR HEMOGLOBIN 28.7 pg (29.0-33.0); MEAN CORPUSCULAR HGB CONC 32.9 g/dl (32.0-37.0); MEAN CORPUSCULAR VOLUME 87.5 fl (82.0-101.0); MEAN PLATELET VOLUME 9.5 fl (7.4-10.4); PLATELET COUNT 731 10^3/UL (140-415); RED BLOOD COUNT 3.27 10^6/ul (4.20-5.40); RED CELL DISTRIBUTION WIDTH 13.1 % (11.5-14.5)
[2018-08-31 16:16] LABS: ADD UMIC YES; UR ASCORBIC ACID NEGATIVE (NEGATIVE); UR BILIRUBIN (Dip) NEGATIVE (NEGATIVE); UR BLOOD (Dip) NEGATIVE (NEGATIVE); UR CLARITY CLEAR (CLEAR); UR COLOR STRAW (YELLOW); UR GLUCOSE (Dip) NEGATIVE (NEGATIVE); UR KETONES (Dip) NEGATIVE (NEGATIVE); UR LEUKOCYTE ESTERASE (Dip) NEGATIVE Leu/ul (NEGATIVE); UR NITRITE (Dip) NEGATIVE (NEGATIVE); UR RBC 1 /HPF (0-5); UR SPECIFIC GRAVITY (Dip) 1.009 (1.003-1.030); UR SQUAMOUS EPITHELIAL CELL FEW /HPF (FEW); UR TOTAL PROTEIN (Dip) 3+ mg/dl (NEGATIVE); UR UROBILINOGEN (Dip) NEGATIVE (NEGATIVE); UR WBC 2 /HPF (0-5)
[2018-08-31 16:17] LABS: HOLD TRANSMISSIONS 1
[2018-08-31 16:18] LABS: ADD MAN DIFF? YES
[2018-08-31 16:22] LABS: ALBUMIN 3.5 g/dl (3.3-4.9); ALBUMIN/GLOBULIN RATIO 0.83; ALKALINE PHOSPHATASE 204 IU/L (42-121); ANION GAP 6 (5-13); ASPARTATE AMINO TRANSFERASE 21 IU/L (15-46); CARBON DIOXIDE 28 mmol/L (21-31); CHLORIDE 106 mmol/L (97-110); Estimated GFR 59 mL/min (>60); GLUCOSE 58 mg/dl (70-220); TOTAL PROTEIN 7.7 g/dl (6.1-8.1)
[2018-08-31 16:32] LABS: POTASSIUM 4.6 mmol/L (3.5-5.1); SODIUM 140 mmol/L (135-144)
[2018-08-31 16:33] LABS: ALANINE AMINOTRANSFERASE < 6 IU/L (13-69); BLOOD UREA NITROGEN 21 mg/dl (7-20); CALCIUM 9.3 mg/dl (8.4-10.2); CREATININE 1.04 mg/dl (0.44-1.00)
[2018-08-31] MEDS: POLYMYXIN B 500000 UNIT INJ (16:45)
[2018-08-31] MEDS: BACITRACIN 50000 UNITS INJ IRR (16:45)
[2018-08-31 17:31] LABS: ANISOCYTOSIS 1+ (0-0); BAND NEUTROPHILS #M 0.1 10^3/ul (0.0-0.6); BAND NEUTROPHILS % (M) 3 % (0-4); LYMPHOCYTES #M 2.9 10^3/ul (0.8-2.9); LYMPHOCYTES % (M) 47 % (15-51); MICROCYTOSIS 1+ (0-0); MONOCYTE #M 0.5 10^3/ul (0.3-0.9); MONOCYTES % (M) 9 % (0-11); PLATELET ESTIMATE INCREASED; POLYCHROMASIA 1+ (0-0); SEG NEUT #M 2.6 10^3/ul (1.6-7.5); SEGMENTED NEUTROPHILS (M) % 41 % (39-77); SMUDGE%M 4 % (0-0)
[2018-08-31] MEDS ORDERED: DEXTROSE 50% 50 ML SYRINGE (17:53)
[2018-08-31] MEDS: HYDROmorphONE 1 MG/5 ML IV SYRINGE IV (18:13)
[2018-08-31] MEDS ORDERED: DEXTROSE 50% 50 ML SYRINGE IV (18:30)
== END 2018-08-31 18:50 | disposition home or self-care (01) ==
LOC: SDS 14:56
DX: I70.248 Atherosclerosis of native arteries of left leg with ulceration of other part of lower leg (principal); I70.261 Atherosclerosis of native arteries of extremities with gangrene, right leg; E11.621 Type 2 diabetes mellitus with foot ulcer; I10 Essential (primary) hypertension
CPT/HCPCS: 11044; 80053; 81001; 82962; 85025

== ENCOUNTER 2018-09-01 12:08 | Inpatient (IN) | payer OTHER ==
[2018-09-01 12:53] LABS: ADD MAN DIFF? NO
[2018-09-01 12:55] LABS: WHITE BLOOD COUNT 8.2 10^3/ul (4.8-10.8)
[2018-09-01 12:55] LABS: BASOPHIL # 0.1 10^3/ul (0.0-0.1); BASOPHILS % 0.6 % (0.0-2.0); EOSINOPHILS # 0.1 10^3/ul (0.0-0.5); EOSINOPHILS % 0.7 % (0.0-7.0); HEMATOCRIT 36.5 % (37.0-47.0); HEMOGLOBIN 11.4 g/dl (12.0-16.0); LYMPHOCYTES # 1.4 10^3/ul (0.8-2.9); MEAN CORPUSCULAR HEMOGLOBIN 28.2 pg (29.0-33.0); MEAN CORPUSCULAR HGB CONC 31.2 g/dl (32.0-37.0); MEAN CORPUSCULAR VOLUME 90.3 fl (82.0-101.0); MONOCYTE # 0.2 10^3/ul (0.3-0.9); MONOCYTES % 2.6 % (0.0-11.0); NEUTROPHIL # 6.5 10^3/ul (1.6-7.5); NEUTROPHILS % 78.9 % (39.0-77.0); PLATELET COUNT 902 10^3/UL (140-415); RED BLOOD COUNT 4.04 10^6/ul (4.20-5.40)
[2018-09-01 13:02] LABS: ALANINE AMINOTRANSFERASE 7 IU/L (13-69); ALBUMIN 3.6 g/dl (3.3-4.9); ALKALINE PHOSPHATASE 221 IU/L (42-121); ANION GAP 14 (5-13); ASPARTATE AMINO TRANSFERASE 24 IU/L (15-46); BLOOD UREA NITROGEN 16 mg/dl (7-20); CALCIUM 9.3 mg/dl (8.4-10.2); CARBON DIOXIDE 25 mmol/L (21-31); CHLORIDE 102 mmol/L (97-110); Estimated GFR > 60 mL/min (>60); GLUCOSE 127 mg/dl (70-220); POTASSIUM 4.5 mmol/L (3.5-5.1); SODIUM 141 mmol/L (135-144); TOTAL PROTEIN 8.1 g/dl (6.1-8.1)
[2018-09-01] MEDS: DEXTROSE 50% 50 ML SYRINGE IV (13:11)
[2018-09-01 13:12] LABS: TROPONIN-I < 0.012 ng/ml (0.000-0.120)
[2018-09-01] MEDS: SODIUM CHLORIDE 0.9% 1L BAG IV* (13:47)
[2018-09-01] MEDS: CEFEPIME 2GM/50 ML (PMX) 50 ML IVPB (13:47)
[2018-09-01 14:09] LABS: INR 0.95; PROTIME 12.8 Sec (11.9-14.9)
[2018-09-01 14:29] LABS: ADD UMIC YES; UR ASCORBIC ACID NEGATIVE (NEGATIVE); UR BILIRUBIN (Dip) NEGATIVE (NEGATIVE); UR BLOOD (Dip) NEGATIVE (NEGATIVE); UR CLARITY SLIGHTLY CLOUDY (CLEAR); UR COLOR YELLOW (YELLOW); UR GLUCOSE (Dip) 1+ mg/dL (NEGATIVE); UR KETONES (Dip) NEGATIVE (NEGATIVE); UR LEUKOCYTE ESTERASE (Dip) NEGATIVE Leu/ul (NEGATIVE); UR NITRITE (Dip) NEGATIVE (NEGATIVE); UR RBC 3 /HPF (0-5); UR SPECIFIC GRAVITY (Dip) 1.014 (1.003-1.030); UR SQUAMOUS EPITHELIAL CELL FEW /HPF (FEW); UR TOTAL PROTEIN (Dip) 3+ mg/dl (NEGATIVE); UR UROBILINOGEN (Dip) NEGATIVE (NEGATIVE); UR WBC 9 /HPF (0-5)
[2018-09-01] MEDS ORDERED: HYDROCODONE/APAP (5/325) TAB PO (15:00)
[2018-09-01] MEDS ORDERED: ACETAMINOPHEN 325 MG TAB PO ×2 (15:00→15:30)
[2018-09-01] MEDS ORDERED: hydrOXYzine HCL 10 MG TAB PO (15:00)
[2018-09-01] MEDS ORDERED: ONDANSETRON 4 MG INJ IV ×2 (15:00→15:30)
[2018-09-01] MEDS ORDERED: GLUCOSE GEL 15 GRAM TUBE BUCCAL (15:30)
[2018-09-01] MEDS ORDERED: GLUCAGON 1 MG INJ IM (15:30)
[2018-09-01] MEDS ORDERED: NACL 0.9% 3 ML SYG IV (15:30)
[2018-09-01] MEDS ORDERED: DEXTROSE 50% 50 ML SYRINGE IV (15:30)
[2018-09-01] MEDS ORDERED: GLUCOSE GEL 15 GRAM TUBE PO ×2 (15:30)
[2018-09-01] MEDS: SOD CHLORIDE 0.9% 1,000 ML IV ×2 (15:45→21:17)
[2018-09-01 16:46] LABS: HEMOGLOBIN A1C 11.6 % (0-5.9)
[2018-09-01] MEDS: INSULIN ASPART [NOVOLOG] 3 ML PEN SC ×2 (18:00→22:50)
[2018-09-01] MEDS: ASPIRIN 81 MG TAB PO (19:05)
[2018-09-01 19:08] LABS: LACTIC ACID 1.7 mmol/L (0.5-2.0)
[2018-09-01 20:54] LABS: RETICULOCYTE COUNT # 0.043 X10^6 (0.020-0.110); RETICULOCYTE COUNT % 1.5 % (0.5-1.5)
[2018-09-01 20:54] LABS: RETICULOCYTE RBC 2.85
[2018-09-01] MEDS: ATORVASTATIN 40 MG TAB PO (20:59)
[2018-09-01] MEDS: HYDROCODONE/APAP (5/325) TAB PO (20:59)
[2018-09-01 21:09] LABS: LACTATE DEHYDROGENASE 374 IU/L (313-618)
[2018-09-01 21:14] LABS: IRON 33 ug/dl (35-150)
[2018-09-01 21:24] LABS: % IRON SATURATION 17 % SAT (22-52); TOTAL IRON BINDING CAPACITY 192 ug/dl (241-421)
[2018-09-01 21:41] LABS: THYROID STIMULATING HORMONE 0.928 MIU/L (0.465-4.680)
[2018-09-01 21:58] LABS: ERYTHROCYTE SEDIMENTATION RATE 108 mm/Hr (0-20)
[2018-09-01 22:16] LABS: FOLATE 16.2 ng/ml (2.8-20.0)
[2018-09-01] MEDS: ACCU-CHEK XX (22:52)
[2018-09-02] MEDS: DEXTROSE 50% 50 ML SYRINGE IV (03:13)
[2018-09-02 03:43] LABS: ADD MAN DIFF? NO
[2018-09-02 04:03] LABS: GLUCOSE 140 mg/dl (70-220)
[2018-09-02 04:07] LABS: ANION GAP 9 (5-13); BLOOD UREA NITROGEN 25 mg/dl (7-20); CALCIUM 8.2 mg/dl (8.4-10.2); CARBON DIOXIDE 24 mmol/L (21-31); CHLORIDE 107 mmol/L (97-110); CREATININE 0.96 mg/dl (0.44-1.00); Estimated GFR > 60 mL/min (>60); GLUCOSE 142 mg/dl (70-220); MAGNESIUM 1.9 mg/dl (1.7-2.5); POTASSIUM 4.1 mmol/L (3.5-5.1); SODIUM 140 mmol/L (135-144)
[2018-09-02 04:08] LABS: BASOPHILS % 0.7 % (0.0-2.0); EOSINOPHILS # 0.3 10^3/ul (0.0-0.5); EOSINOPHILS % 4.9 % (0.0-7.0); HEMATOCRIT 23.2 % (37.0-47.0); HEMOGLOBIN 7.5 g/dl (12.0-16.0); LYMPHOCYTES # 2.6 10^3/ul (0.8-2.9); LYMPHOCYTES % 42.8 % (15.0-51.0); MEAN CORPUSCULAR HEMOGLOBIN 28.5 pg (29.0-33.0); MEAN CORPUSCULAR HGB CONC 32.3 g/dl (32.0-37.0); MEAN CORPUSCULAR VOLUME 88.2 fl (82.0-101.0); MEAN PLATELET VOLUME 9.1 fl (7.4-10.4); MONOCYTE # 0.5 10^3/ul (0.3-0.9); MONOCYTES % 9.1 % (0.0-11.0); NEUTROPHIL # 2.5 10^3/ul (1.6-7.5); NEUTROPHILS % 42.3 % (39.0-77.0); PLATELET COUNT 640 10^3/UL (140-415); RED BLOOD COUNT 2.63 10^6/ul (4.20-5.40); RED CELL DISTRIBUTION WIDTH 13.2 % (11.5-14.5)
[2018-09-02] MEDS: INSULIN GLARGINE [LANTus] (100 UNITS/ML) SYG SC (07:50)
[2018-09-02] MEDS: INSULIN ASPART [NOVOLOG] 3 ML PEN SC ×4 (08:00→21:00)
[2018-09-02] MEDS: LISINOPRIL 5 MG TAB PO (08:37)
[2018-09-02] MEDS: ASPIRIN 81 MG TAB PO (08:37)
[2018-09-02] MEDS: HYDROCODONE/APAP (5/325) TAB PO (08:37)
[2018-09-02] MEDS: ENOXAPARIN 40 MG/0.4 ML SYG SC (08:50)
[2018-09-02] MEDS ORDERED: DEXTROSE 5%-0.45% NACL 1,000 ML IV (09:00)
[2018-09-02] MEDS ORDERED: INSULIN GLARGINE [LANtus] 3 ML PEN SC (09:00)
[2018-09-02 09:05] LABS: ADD MAN DIFF? NO
[2018-09-02 09:09] LABS: WHITE BLOOD COUNT 5.6 10^3/ul (4.8-10.8)
[2018-09-02 09:09] LABS: BASOPHILS % 0.5 % (0.0-2.0); EOSINOPHILS # 0.2 10^3/ul (0.0-0.5); EOSINOPHILS % 3.5 % (0.0-7.0); HEMATOCRIT 28.2 % (37.0-47.0); HEMOGLOBIN 8.8 g/dl (12.0-16.0); LYMPHOCYTES # 2.4 10^3/ul (0.8-2.9); LYMPHOCYTES % 42.6 % (15.0-51.0); MEAN CORPUSCULAR HGB CONC 31.2 g/dl (32.0-37.0); MEAN CORPUSCULAR VOLUME 89.8 fl (82.0-101.0); MEAN PLATELET VOLUME 8.8 fl (7.4-10.4); MONOCYTE # 0.4 10^3/ul (0.3-0.9); MONOCYTES % 6.2 % (0.0-11.0); NEUTROPHIL # 2.7 10^3/ul (1.6-7.5); PLATELET COUNT 703 10^3/UL (140-415); RED BLOOD COUNT 3.14 10^6/ul (4.20-5.40); RED CELL DISTRIBUTION WIDTH 13.2 % (11.5-14.5)
[2018-09-02] MEDS: [UNRECOGNIZED DRUG - OTHER] XX ×2 (13:00→20:55)
[2018-09-02] MEDS: ATORVASTATIN 40 MG TAB PO (21:00)
[2018-09-03] MEDS: HYDROCODONE/APAP (5/325) TAB PO (01:26)
[2018-09-03] MEDS: ACCU-CHEK XX (01:31)
[2018-09-03] MEDS: [UNRECOGNIZED DRUG - OTHER] XX (05:00)
[2018-09-03 05:29] LABS: HEMATOCRIT 26.8 % (37.0-47.0); HEMOGLOBIN 8.4 g/dl (12.0-16.0); MEAN CORPUSCULAR HEMOGLOBIN 28.1 pg (29.0-33.0); MEAN CORPUSCULAR HGB CONC 31.3 g/dl (32.0-37.0); MEAN CORPUSCULAR VOLUME 89.6 fl (82.0-101.0); MEAN PLATELET VOLUME 8.9 fl (7.4-10.4); PLATELET COUNT 645 10^3/UL (140-415); RED BLOOD COUNT 2.99 10^6/ul (4.20-5.40); RED CELL DISTRIBUTION WIDTH 12.9 % (11.5-14.5)
[2018-09-03 05:29] LABS: WHITE BLOOD COUNT 6.7 10^3/ul (4.8-10.8)
[2018-09-03 05:53] LABS: ADD MAN DIFF? YES
[2018-09-03 05:59] LABS: ANION GAP 9 (5-13); BLOOD UREA NITROGEN 19 mg/dl (7-20); CALCIUM 8.6 mg/dl (8.4-10.2); CARBON DIOXIDE 26 mmol/L (21-31); CHLORIDE 108 mmol/L (97-110); CREATININE 0.86 mg/dl (0.44-1.00); POTASSIUM 4.5 mmol/L (3.5-5.1); SODIUM 143 mmol/L (135-144)
[2018-09-03 06:00] LABS: ALBUMIN 2.7 g/dl (3.3-4.9); MAGNESIUM 1.9 mg/dl (1.7-2.5); PHOSPHORUS 4.8 mg/dl (2.5-4.9)
[2018-09-03 06:11] LABS: PROTEIN, TOTAL 5.3 g/dL (6.1-8.1)
[2018-09-03 06:32] LABS: GLUCOSE 44 mg/dl (70-220)
[2018-09-03] MEDS: DEXTROSE 50% 50 ML SYRINGE IV (06:38)
[2018-09-03] MEDS: ASPIRIN 81 MG TAB PO (08:29)
[2018-09-03] MEDS: ENOXAPARIN 40 MG/0.4 ML SYG SC (08:39)
[2018-09-03] MEDS: LISINOPRIL 5 MG TAB PO (08:49)
[2018-09-03] MEDS: INSULIN ASPART [NOVOLOG] 3 ML PEN SC ×3 (08:50→17:38)
[2018-09-03] MEDS ORDERED: [UNRECOGNIZED DRUG - OTHER] XX (13:30)
[2018-09-03] MEDS ORDERED: ENALAPRILAT 1.25 MG INJ IV (16:00)
[2018-09-03] MEDS: ENALAPRILAT 2.5 MG INJ IV (16:31)
[2018-09-03] MEDS: hydrALAzine 20 MG INJ IV (17:29)
[2018-09-05 16:26] LABS: ALBUMIN 2.1 g/dL (3.8-4.8); ALPHA-1-GLOBULINS 0.4 g/dL (0.2-0.3); ALPHA-2-GLOBULINS 1.1 g/dL (0.5-0.9); BETA 2 GLOBULINS 0.3 g/dL (0.2-0.5); BETA GLOBULINS 0.4 g/dL (0.4-0.6); BETA-2 MICROGLOBULIN 4.17 mg/L (< OR = 2.51); GAMMA GLOBULINS 1.1 g/dL (0.8-1.7)
== END 2018-09-03 20:05 | disposition home or self-care (01) | DRG 638 ==
LOC: E/R 12:08 → 2NE 09-02 20:15 → 6WM 14:59
PROVIDERS: Internal Medicine
DX: E11.649 Type 2 diabetes mellitus with hypoglycemia without coma (principal); E11.52 Type 2 diabetes mellitus with diabetic peripheral angiopathy with gangrene; I96 Gangrene, not elsewhere classified; D47.3 Essential (hemorrhagic) thrombocythemia; T68.XXXA Hypothermia, initial encounter; E11.621 Type 2 diabetes mellitus with foot ulcer; L97.529 Non-pressure chronic ulcer of other part of left foot with unspecified severity; Z89.411 Acquired absence of right great toe; Z89.412 Acquired absence of left great toe
CPT/HCPCS: 36415; 71045; 76700; 80048; 80053; 80069; 81001; 81270; 82306; 82607; 82746; 82947; 82962; 83036; 83540; 83605; 83615; 83735; 84155; 84165; 84443; 84484; 84560; 85025; 85045; 85610; 85651; 85730; 87040; 87086; 93005; 96374; 99291-25

== ENCOUNTER 2018-09-25 07:45 | Day surgery (SDC) | payer OTHER ==
[2018-09-25] MEDS ORDERED: HEPARIN 1000 UNITS/ML 10 ML INJ (08:45)
[2018-09-25] MEDS ORDERED: CEFAZOLIN 1 GM INJ (09:07)
[2018-09-25] MEDS ORDERED: MIDAZOLAM 1 MG/ML 2 ML INJ (09:07)
[2018-09-25] MEDS ORDERED: OXYCODONE/ACETAMINOPHEN (5/325) TAB PO (09:30)
[2018-09-25] MEDS ORDERED: hydrALAzine 20 MG INJ IV (09:30)
[2018-09-25] MEDS ORDERED: MEPERIDINE 25 MG INJ IV (09:30)
[2018-09-25] MEDS ORDERED: LABETALOL HCL 20MG INJ IV (09:30)
[2018-09-25] MEDS ORDERED: HYDROmorphONE 1 MG/5 ML IV SYRINGE IV (09:30)
[2018-09-25] MEDS ORDERED: ONDANSETRON 4 MG INJ IV (09:30)
[2018-09-25] MEDS ORDERED: DIPHENHYDRAMINE 50 MG INJ IV (09:30)
[2018-09-25] MEDS ORDERED: METOPROLOL 5 MG INJ (09:39)
[2018-09-25] MEDS: EPINEPHrine 1 MG/ML 30 ML INJ IRR (09:56)
[2018-09-25] MEDS: HYDROmorphONE 1 MG/5 ML IV SYRINGE IV ×2 (10:20→10:29)
== END 2018-09-25 12:24 | disposition home or self-care (01) ==
LOC: SDS 07:45
DX: I70.248 Atherosclerosis of native arteries of left leg with ulceration of other part of lower leg (principal); L97.829 Non-pressure chronic ulcer of other part of left lower leg with unspecified severity; I70.261 Atherosclerosis of native arteries of extremities with gangrene, right leg; E11.9 Type 2 diabetes mellitus without complications; I10 Essential (primary) hypertension; E78.5 Hyperlipidemia, unspecified
CPT/HCPCS: 11043; 82962

== ENCOUNTER 2018-10-10 09:58 | Day surgery (SDC) | payer OTHER ==
[2018-10-10] MEDS ORDERED: CEFAZOLIN 2 GM/50 ML (PMX) 50 ML IVPB (10:00)
[2018-10-10] MEDS ORDERED: LIDOCAINE 1% (MPF) 30 ML INJ (12:24)
[2018-10-10] MEDS ORDERED: OXYCODONE/ACETAMINOPHEN (5/325) TAB PO ×2 (12:30)
[2018-10-10] MEDS ORDERED: CEFAZOLIN 1 GM INJ (12:30)
[2018-10-10] MEDS ORDERED: METOCLOPRAMIDE 10 MG INJ IV (12:30)
[2018-10-10] MEDS ORDERED: FENTAnyl 50 MCG/ML VIAL IV ×2 (12:30)
[2018-10-10] MEDS ORDERED: FENTAnyl 50 MCG/ML VIAL (12:30)
[2018-10-10] MEDS ORDERED: ONDANSETRON 4 MG INJ (12:33)
[2018-10-10 12:41] LABS: ADD MAN DIFF? NO
[2018-10-10 12:42] LABS: WHITE BLOOD COUNT 7.7 10^3/ul (4.8-10.8)
[2018-10-10 12:42] LABS: BASOPHILS % 0.5 % (0.0-2.0); EOSINOPHILS # 0.2 10^3/ul (0.0-0.5); HEMATOCRIT 28.1 % (37.0-47.0); HEMOGLOBIN 9.1 g/dl (12.0-16.0); LYMPHOCYTES # 2.3 10^3/ul (0.8-2.9); LYMPHOCYTES % 29.8 % (15.0-51.0); MEAN CORPUSCULAR HEMOGLOBIN 27.9 pg (29.0-33.0); MEAN CORPUSCULAR HGB CONC 32.4 g/dl (32.0-37.0); MEAN CORPUSCULAR VOLUME 86.2 fl (82.0-101.0); MEAN PLATELET VOLUME 9.4 fl (7.4-10.4); MONOCYTE # 0.6 10^3/ul (0.3-0.9); MONOCYTES % 7.8 % (0.0-11.0); NEUTROPHIL # 4.6 10^3/ul (1.6-7.5); NEUTROPHILS % 59.6 % (39.0-77.0); PLATELET COUNT 562 10^3/UL (140-415); RED BLOOD COUNT 3.26 10^6/ul (4.20-5.40); RED CELL DISTRIBUTION WIDTH 12.8 % (11.5-14.5)
[2018-10-10] MEDS ORDERED: LABETALOL HCL 20MG INJ (12:42)
[2018-10-10 12:47] LABS: HOLD TRANSMISSIONS 1
[2018-10-10] MEDS ORDERED: MIDAZOLAM 1 MG/ML 2 ML INJ (12:50)
[2018-10-10 13:01] LABS: ANION GAP 3 (5-13); BLOOD UREA NITROGEN 20 mg/dl (7-20); CALCIUM 9.1 mg/dl (8.4-10.2); CARBON DIOXIDE 32 mmol/L (21-31); CHLORIDE 100 mmol/L (97-110); CREATININE 0.99 mg/dl (0.44-1.00); Estimated GFR > 60 mL/min (>60); GLUCOSE 170 mg/dl (70-220); INR 0.99; PROTIME 13.2 Sec (11.9-14.9); SODIUM 135 mmol/L (135-144)
[2018-10-10 13:02] LABS: PARTIAL THROMBOPLASTIN TIME 29.7 Sec (23.0-35.0)
[2018-10-10 13:05] LABS: POTASSIUM 5.6 mmol/L (3.5-5.1)
[2018-10-10] MEDS: BACITRACIN 50000 UNITS INJ IRR (13:34)
[2018-10-10] MEDS: POLYMYXIN B 500000 UNIT INJ (13:34)
[2018-10-10] MEDS: FENTAnyl 50 MCG/ML VIAL IV ×2 (13:44→13:50)
== END 2018-10-10 15:15 | disposition home or self-care (01) ==
LOC: SDS 09:58
DX: I70.248 Atherosclerosis of native arteries of left leg with ulceration of other part of lower leg (principal); L97.829 Non-pressure chronic ulcer of other part of left lower leg with unspecified severity; I70.261 Atherosclerosis of native arteries of extremities with gangrene, right leg; I10 Essential (primary) hypertension; E11.9 Type 2 diabetes mellitus without complications
CPT/HCPCS: 11044; 80048; 82962; 84703; 85025; 85610; 85730

== ENCOUNTER 2018-11-02 12:58 | Day surgery (SDC) | payer OTHER ==
[~2018-11-02 12:58] MED LIST changes: -DEXTROSE 50% 50 ML SYRINGE; -LIDOCAINE 1% (MPF) 30 ML INJ
[2018-11-02 14:04] LABS: ADD MAN DIFF? NO
[2018-11-02 14:07] LABS: BASOPHIL # 0.1 10^3/ul (0.0-0.1); BASOPHILS % 0.7 % (0.0-2.0); EOSINOPHILS # 0.2 10^3/ul (0.0-0.5); EOSINOPHILS % 2.4 % (0.0-7.0); HEMATOCRIT 28.1 % (37.0-47.0); HEMOGLOBIN 8.8 g/dl (12.0-16.0); LYMPHOCYTES # 2.9 10^3/ul (0.8-2.9); LYMPHOCYTES % 38.5 % (15.0-51.0); MEAN CORPUSCULAR HEMOGLOBIN 27.3 pg (29.0-33.0); MEAN CORPUSCULAR HGB CONC 31.3 g/dl (32.0-37.0); MEAN CORPUSCULAR VOLUME 87.3 fl (82.0-101.0); MONOCYTE # 0.7 10^3/ul (0.3-0.9); MONOCYTES % 8.8 % (0.0-11.0); NEUTROPHIL # 3.7 10^3/ul (1.6-7.5); NEUTROPHILS % 49.3 % (39.0-77.0); PLATELET COUNT 579 10^3/UL (140-415); RED BLOOD COUNT 3.22 10^6/ul (4.20-5.40); RED CELL DISTRIBUTION WIDTH 13.2 % (11.5-14.5)
[2018-11-02 14:07] LABS: WHITE BLOOD COUNT 7.5 10^3/ul (4.8-10.8)
[2018-11-02 14:25] LABS: ANION GAP 8 (5-13); CALCIUM 9.5 mg/dl (8.4-10.2); CARBON DIOXIDE 23 mmol/L (21-31); CHLORIDE 105 mmol/L (97-110); Estimated GFR 44 mL/min (>60); GLUCOSE 149 mg/dl (70-220); POTASSIUM 4.5 mmol/L (3.5-5.1); SODIUM 136 mmol/L (135-144)
[2018-11-02 14:26] LABS: INR 1.02; PROTIME 13.5 Sec (11.9-14.9); PT RATIO 1.1
[2018-11-02 14:27] LABS: HOLD TRANSMISSIONS 1
[2018-11-02 14:33] LABS: BLOOD UREA NITROGEN 27 mg/dl (7-20); CREATININE 1.33 mg/dl (0.44-1.00)
[2018-11-02] MEDS ORDERED: EPINEPHrine 1 MG INJ (15:02)
[2018-11-02] MEDS ORDERED: LIDOCAINE 1% (MPF) 30 ML INJ (15:02)
[2018-11-02] MEDS ORDERED: MIDAZOLAM 1 MG/ML 2 ML INJ (15:18)
[2018-11-02] MEDS ORDERED: FENTAnyl 50 MCG/ML VIAL (15:18)
[2018-11-02] MEDS ORDERED: HYDROmorphONE 1 MG/5 ML IV SYRINGE IV (15:30)
[2018-11-02] MEDS: HYDROmorphONE 1 MG/5 ML IV SYRINGE IV (16:12)
== END 2018-11-02 18:26 | disposition home or self-care (01) ==
LOC: SDS 12:58
DX: I70.248 Atherosclerosis of native arteries of left leg with ulceration of other part of lower leg (principal); L97.829 Non-pressure chronic ulcer of other part of left lower leg with unspecified severity; I70.261 Atherosclerosis of native arteries of extremities with gangrene, right leg; E11.621 Type 2 diabetes mellitus with foot ulcer; E78.5 Hyperlipidemia, unspecified
CPT/HCPCS: 11044; 80048; 82962; 84703; 85025; 85610; 85730

== ENCOUNTER 2018-11-30 06:51 | Day surgery (SDC) | payer OTHER ==
[~2018-11-30 06:51] MED LIST changes: -CEFAZOLIN 1 GM INJ; -CEFAZOLIN 2 GM/50 ML (PMX) 50 ML IVPB; +LIDOCAINE 1% (MPF) 30 ML INJ; +POLYMYXIN/BACITRACIN 1L IRRIG
[2018-11-30] MEDS: LIDOCAINE 1% (MPF) 30 ML INJ INJ (07:43)
[2018-11-30] MEDS ORDERED: MIDAZOLAM 1 MG/ML 2 ML INJ (07:51)
[2018-11-30] MEDS ORDERED: FENTAnyl 50 MCG/ML VIAL (07:52)
[2018-11-30] MEDS: CEFAZOLIN 2 GM/50 ML (PMX) 50 ML IVPB (07:57)
[2018-11-30] MEDS: POLYMYXIN/BACITRACIN 1L IRRIG IRR (08:15)
[2018-11-30] MEDS ORDERED: PROCHLORPERAZINE 10 MG INJ IV (09:00)
[2018-11-30] MEDS ORDERED: DIPHENHYDRAMINE 50 MG INJ IV (09:00)
[2018-11-30] MEDS ORDERED: HYDROmorphONE 1 MG/5 ML IV SYRINGE IV ×3 (09:00→09:02)
[2018-11-30] MEDS ORDERED: hydrALAzine 20 MG INJ IV (09:00)
[2018-11-30] MEDS ORDERED: LABETALOL HCL 20MG INJ IV (09:00)
[2018-11-30] MEDS ORDERED: OXYCODONE/ACETAMINOPHEN (5/325) TAB PO (09:00)
[2018-11-30] MEDS ORDERED: ONDANSETRON 4 MG INJ IV (09:00)
[2018-11-30] MEDS ORDERED: MEPERIDINE 25 MG INJ IV (09:00)
[2018-11-30] MEDS ORDERED: FENTAnyl 50 MCG/ML VIAL IV ×3 (09:00)
[2018-11-30] MEDS: HYDROmorphONE 1 MG/5 ML IV SYRINGE IV (09:07)
== END 2018-11-30 11:25 | disposition home or self-care (01) ==
LOC: SDS 06:51
DX: I70.261 Atherosclerosis of native arteries of extremities with gangrene, right leg (principal); I70.248 Atherosclerosis of native arteries of left leg with ulceration of other part of lower leg; L97.829 Non-pressure chronic ulcer of other part of left lower leg with unspecified severity; E11.9 Type 2 diabetes mellitus without complications
CPT/HCPCS: 11044; 82962

== ENCOUNTER 2019-01-01 16:25 | Day surgery (SDC) | payer OTHER ==
[~2019-01-01 16:25] MED LIST changes: +CEFAZOLIN 1 GM INJ; -LIDOCAINE 1% (MPF) 30 ML INJ; -POLYMYXIN/BACITRACIN 1L IRRIG
[2019-01-01] MEDS: DEXTROSE 5% 1,000 ML IV (17:31)
[2019-01-01] MEDS ORDERED: PROPOFOL 20 ML (17:59)
[2019-01-01] MEDS ORDERED: FENTAnyl 50 MCG/ML VIAL (17:59)
[2019-01-01] MEDS ORDERED: MIDAZOLAM 1 MG/ML 2 ML INJ (17:59)
[2019-01-01] MEDS ORDERED: OXYCODONE/ACETAMINOPHEN (5/325) TAB PO (18:30)
[2019-01-01] MEDS ORDERED: ONDANSETRON 4 MG INJ IV (18:30)
[2019-01-01] MEDS ORDERED: HYDROmorphONE 1 MG/5 ML IV SYRINGE IV (18:30)
== END 2019-01-01 20:40 | disposition home or self-care (01) ==
LOC: SDS 16:25
DX: E11.51 Type 2 diabetes mellitus with diabetic peripheral angiopathy without gangrene (principal); I70.291 Other atherosclerosis of native arteries of extremities, right leg; I70.245 Atherosclerosis of native arteries of left leg with ulceration of other part of foot; I10 Essential (primary) hypertension; Z79.84 Long term (current) use of oral hypoglycemic drugs; Z79.4 Long term (current) use of insulin
CPT/HCPCS: 11044; 82962

== ENCOUNTER 2019-01-16 15:00 | Day surgery (SDC) | payer OTHER ==
[2019-01-16] MEDS ORDERED: DEXTROSE 50% 50 ML SYRINGE (15:57)
[2019-01-16] MEDS: DEXTROSE 50% 50 ML SYRINGE IV ×2 (16:01→18:45)
[2019-01-16] MEDS: LACTATED RINGER'S 1,000 ML IV (16:02)
[2019-01-16 16:17] LABS: ADD MAN DIFF? NO
[2019-01-16 16:20] LABS: WHITE BLOOD COUNT 7.7 10^3/ul (4.8-10.8)
[2019-01-16 16:20] LABS: BASOPHILS % 0.4 % (0.0-2.0); EOSINOPHILS # 0.2 10^3/ul (0.0-0.5); EOSINOPHILS % 2.5 % (0.0-7.0); HEMATOCRIT 26.9 % (37.0-47.0); HEMOGLOBIN 8.3 g/dl (12.0-16.0); LYMPHOCYTES % 39.6 % (15.0-51.0); MEAN CORPUSCULAR HEMOGLOBIN 27.4 pg (29.0-33.0); MEAN CORPUSCULAR HGB CONC 30.9 g/dl (32.0-37.0); MEAN CORPUSCULAR VOLUME 88.8 fl (82.0-101.0); MEAN PLATELET VOLUME 9.2 fl (7.4-10.4); MONOCYTE # 0.5 10^3/ul (0.3-0.9); NEUTROPHIL # 3.8 10^3/ul (1.6-7.5); PLATELET COUNT 468 10^3/UL (140-415); RED BLOOD COUNT 3.03 10^6/ul (4.20-5.40); RED CELL DISTRIBUTION WIDTH 14.5 % (11.5-14.5)
[2019-01-16] MEDS: SOD CHLORIDE 0.9% 1,000 ML IV (16:21)
[2019-01-16 16:29] LABS: HOLD TRANSMISSIONS 1
[2019-01-16 16:40] LABS: INR 0.99; PROTIME 13.2 Sec (11.9-14.9)
[2019-01-16 16:41] LABS: PARTIAL THROMBOPLASTIN TIME 29.2 Sec (23.0-35.0)
[2019-01-16 16:42] LABS: ADD UMIC YES; UR ASCORBIC ACID NEGATIVE (NEGATIVE); UR BACTERIA FEW /HPF (NONE SEEN); UR BILIRUBIN (Dip) NEGATIVE (NEGATIVE); UR BLOOD (Dip) NEGATIVE (NEGATIVE); UR CLARITY CLOUDY (CLEAR); UR COLOR YELLOW (YELLOW); UR GLUCOSE (Dip) 2+ mg/dL (NEGATIVE); UR HYALINE CAST FEW /HPF (NONE SEEN); UR KETONES (Dip) NEGATIVE (NEGATIVE); UR LEUKOCYTE ESTERASE (Dip) 1+ Leu/ul (NEGATIVE); UR MUCUS FEW /HPF (NONE SEEN); UR NITRITE (Dip) NEGATIVE (NEGATIVE); UR RBC 38 /HPF (0-5); UR SPECIFIC GRAVITY (Dip) 1.025 (1.003-1.030); UR SQUAMOUS EPITHELIAL CELL MANY /HPF (FEW); UR TOTAL PROTEIN (Dip) 3+ mg/dl (NEGATIVE); UR UROBILINOGEN (Dip) NEGATIVE (NEGATIVE); UR WBC 55 /HPF (0-5)
[2019-01-16 16:56] LABS: ANION GAP 6 (5-13); CALCIUM 8.4 mg/dl (8.4-10.2); CARBON DIOXIDE 23 mmol/L (21-31); CHLORIDE 111 mmol/L (97-110); Estimated GFR 57 mL/min (>60); GLUCOSE 184 mg/dl (70-220); POTASSIUM 4.6 mmol/L (3.5-5.1); SODIUM 140 mmol/L (135-144)
[2019-01-16 17:19] LABS: BLOOD UREA NITROGEN 23 mg/dl (7-20); CREATININE 1.07 mg/dl (0.44-1.00)
[2019-01-16] MEDS ORDERED: POLYMYXIN/BACITRACIN 1L IRRIG (19:06)
[2019-01-16] MEDS ORDERED: FENTAnyl 50 MCG/ML VIAL (19:53)
[2019-01-16] MEDS ORDERED: MIDAZOLAM 1 MG/ML 2 ML INJ (19:53)
[2019-01-16] MEDS ORDERED: CEFAZOLIN 1 GM INJ (19:56)
[2019-01-16] MEDS ORDERED: hydrALAzine 20 MG INJ (19:56)
[2019-01-16] MEDS ORDERED: LABETALOL HCL 20MG INJ IV (20:00)
[2019-01-16] MEDS ORDERED: hydrALAzine 20 MG INJ IV (20:00)
[2019-01-16] MEDS ORDERED: FENTAnyl 50 MCG/ML VIAL IV (20:00)
[2019-01-16] MEDS ORDERED: EPHEDrine 25 MG/5 ML SYG IV (20:00)
[2019-01-16] MEDS ORDERED: DEXTROSE 5% WATER 500 ML BAG IV (20:00)
[2019-01-16] MEDS ORDERED: ONDANSETRON 4 MG INJ (20:20)
[2019-01-16] MEDS ORDERED: METOCLOPRAMIDE 10 MG INJ (20:20)
[2019-01-16] MEDS: LIDOCAINE 1% (MPF) 30 ML INJ (20:33)
[2019-01-16] MEDS: HYDROmorphONE 1 MG/5 ML IV SYRINGE IV ×2 (21:03→21:16)
[2019-01-16] MEDS: ONDANSETRON 4 MG INJ IV (21:03)
== END 2019-01-16 22:17 | disposition home or self-care (01) ==
LOC: SDS 15:00
DX: I70.248 Atherosclerosis of native arteries of left leg with ulceration of other part of lower leg (principal); L97.829 Non-pressure chronic ulcer of other part of left lower leg with unspecified severity; I70.261 Atherosclerosis of native arteries of extremities with gangrene, right leg; E11.9 Type 2 diabetes mellitus without complications; I12.9 Hypertensive chronic kidney disease with stage 1 through stage 4 chronic kidney disease, or unspecified chronic kidney disease; N18.9 Chronic kidney disease, unspecified
CPT/HCPCS: 11044; 80048; 81001; 82962; 84703; 85025; 85610; 85730; 93005

== ENCOUNTER 2019-02-09 05:57 | Day surgery (SDC) | payer OTHER ==
[2019-02-09] MEDS: CEFAZOLIN 2 GM/50 ML (PMX) 50 ML IVPB (07:30)
[2019-02-09] MEDS ORDERED: LIDOCAINE 1% (MPF) 30 ML INJ (07:44)
[2019-02-09] MEDS ORDERED: POLYMYXIN/BACITRACIN 1L IRRIG (07:44)
[2019-02-09] MEDS ORDERED: FENTAnyl 50 MCG/ML VIAL (08:09)
[2019-02-09] MEDS ORDERED: MIDAZOLAM 1 MG/ML 2 ML INJ (08:09)
[2019-02-09] MEDS: BACITRACIN 50000 UNITS INJ (08:47)
[2019-02-09] MEDS: POLYMYXIN B 500000 UNIT INJ (08:48)
[2019-02-09] MEDS ORDERED: HYDROmorphONE 1 MG/5 ML IV SYRINGE IV ×2 (09:25→09:30)
[2019-02-09] MEDS ORDERED: FENTAnyl 50 MCG/ML VIAL IV ×3 (09:30)
[2019-02-09] MEDS ORDERED: MEPERIDINE 25 MG INJ IV (09:30)
[2019-02-09] MEDS ORDERED: ONDANSETRON 4 MG INJ IV (09:30)
[2019-02-09] MEDS ORDERED: OXYCODONE/ACETAMINOPHEN (5/325) TAB PO ×2 (09:30)
[2019-02-09] MEDS ORDERED: DIPHENHYDRAMINE 50 MG INJ IV (09:30)
[2019-02-09] MEDS ORDERED: MIDAZOLAM 1 MG/ML 2 ML INJ IV (09:30)
[2019-02-09] MEDS ORDERED: KETOROLAC 30 MG INJ IV (09:30)
[2019-02-09] MEDS ORDERED: ALBUTEROL 0.083% (NEB) 2.5 MG/3 ML AMP HHN (09:30)
[2019-02-09] MEDS ORDERED: LABETALOL HCL 20MG INJ IV (09:30)
[2019-02-09] MEDS ORDERED: EPHEDrine 25 MG/5 ML SYG IV (09:30)
[2019-02-09] MEDS: HYDROmorphONE 1 MG/5 ML IV SYRINGE IV ×2 (09:32→09:39)
[2019-02-09] MEDS: hydrALAzine 20 MG INJ IV (09:41)
== END 2019-02-09 10:45 | disposition home or self-care (01) ==
LOC: SDS 05:57
DX: E11.51 Type 2 diabetes mellitus with diabetic peripheral angiopathy without gangrene (principal); I70.245 Atherosclerosis of native arteries of left leg with ulceration of other part of foot; L97.529 Non-pressure chronic ulcer of other part of left foot with unspecified severity; I70.261 Atherosclerosis of native arteries of extremities with gangrene, right leg; I10 Essential (primary) hypertension; Z79.84 Long term (current) use of oral hypoglycemic drugs; Z79.4 Long term (current) use of insulin
CPT/HCPCS: 11043; 82962

== ENCOUNTER 2019-02-21 13:27 | Day surgery (SDC) | payer OTHER ==
[~2019-02-21 13:27] MED LIST changes: -CEFAZOLIN 1 GM INJ; +CEFAZOLIN 2 GM/50 ML (PMX) 50 ML IVPB
[2019-02-21] MEDS: LIDOCAINE 1% (MPF) 30 ML INJ (16:28)
[2019-02-21] MEDS: POLYMYXIN/BACITRACIN 1L IRRIG (16:29)
[2019-02-21] MEDS ORDERED: SOD CHLORIDE 0.9% 1,000 ML IV (16:30)
[2019-02-21] MEDS ORDERED: DEXTROSE 50% 50 ML SYRINGE (16:54)
[2019-02-21] MEDS ORDERED: PROPOFOL 200 MG INJ (17:00)
[2019-02-21] MEDS ORDERED: CEFAZOLIN 1 GM INJ (17:16)
[2019-02-21] MEDS ORDERED: LABETALOL HCL 20MG INJ (18:26)
[2019-02-21] MEDS ORDERED: FENTAnyl 50 MCG/ML VIAL (18:26)
[2019-02-21] MEDS: LABETALOL HCL 20MG INJ IV ×2 (18:37→18:50)
[2019-02-21] MEDS: FENTAnyl 50 MCG/ML VIAL IV (18:38)
== END 2019-02-21 19:18 | disposition home or self-care (01) ==
LOC: SDS 13:27
DX: E11.621 Type 2 diabetes mellitus with foot ulcer (principal); I70.248 Atherosclerosis of native arteries of left leg with ulceration of other part of lower leg; L97.829 Non-pressure chronic ulcer of other part of left lower leg with unspecified severity; I70.261 Atherosclerosis of native arteries of extremities with gangrene, right leg; E11.51 Type 2 diabetes mellitus with diabetic peripheral angiopathy without gangrene; I10 Essential (primary) hypertension; E78.5 Hyperlipidemia, unspecified; Z79.84 Long term (current) use of oral hypoglycemic drugs
CPT/HCPCS: 11044; 82962

== ENCOUNTER 2019-03-29 14:37 | Day surgery (SDC) | payer OTHER | END 2019-03-29 19:00 | disposition home or self-care (01) | LOC: SDS 19:00 | DX: I70.203 Unspecified atherosclerosis of native arteries of extremities, bilateral legs (principal); Z53.8 Procedure and treatment not carried out for other reasons | CPT/HCPCS: 82962 ==

== ENCOUNTER 2019-04-12 13:52 | Day surgery (SDC) | payer OTHER ==
[2019-04-12 16:21] LABS: WHITE BLOOD COUNT 10.5 10^3/ul (4.8-10.8)
[2019-04-12 16:21] LABS: HEMOGLOBIN 7.7 g/dl (12.0-16.0); MEAN CORPUSCULAR HEMOGLOBIN 27.4 pg (29.0-33.0); MEAN CORPUSCULAR HGB CONC 32.1 g/dl (32.0-37.0); MEAN CORPUSCULAR VOLUME 85.4 fl (82.0-101.0); MEAN PLATELET VOLUME 8.9 fl (7.4-10.4); PLATELET COUNT 720 10^3/UL (140-415); RED BLOOD COUNT 2.81 10^6/ul (4.20-5.40); RED CELL DISTRIBUTION WIDTH 13.5 % (11.5-14.5)
[2019-04-12] MEDS ORDERED: FENTAnyl 50 MCG/ML VIAL IV (16:30)
[2019-04-12] MEDS ORDERED: SOD CHLORIDE 0.9% 1,000 ML IV (16:30)
[2019-04-12 16:38] LABS: ALANINE AMINOTRANSFERASE 19 IU/L (13-69); ALBUMIN 3.2 g/dl (3.3-4.9); ALBUMIN/GLOBULIN RATIO 0.82; ALKALINE PHOSPHATASE 181 IU/L (42-121); ANION GAP 9 (5-13); ASPARTATE AMINO TRANSFERASE 13 IU/L (15-46); BILIRUBIN,INDIRECT 0.4 mg/dl (0-1.1); BILIRUBIN,TOTAL 0.4 mg/dl (0.2-1.3); CALCIUM 8.9 mg/dl (8.4-10.2); CARBON DIOXIDE 21 mmol/L (21-31); CHLORIDE 106 mmol/L (97-110); Estimated GFR 33 mL/min (>60); GLUCOSE 78 mg/dl (70-220); POTASSIUM 4.8 mmol/L (3.5-5.1); SODIUM 136 mmol/L (135-144); TOTAL PROTEIN 7.1 g/dl (6.1-8.1)
[2019-04-12 16:41] LABS: BLOOD UREA NITROGEN 30 mg/dl (7-20); CREATININE 1.72 mg/dl (0.44-1.00)
[2019-04-12 16:42] LABS: INR 1.06; PROTIME 13.9 Sec (11.9-14.9); PT RATIO 1.1
[2019-04-12] MEDS ORDERED: CEFAZOLIN 1 GM INJ (16:42)
[2019-04-12] MEDS ORDERED: MIDAZOLAM 1 MG/ML 2 ML INJ (16:42)
[2019-04-12 16:43] LABS: PARTIAL THROMBOPLASTIN TIME 31.1 Sec (23.0-35.0)
[2019-04-12 16:51] LABS: ADD MAN DIFF? YES; HOLD TRANSMISSIONS 1
[2019-04-12 18:34] LABS: ANISOCYTOSIS 3+ (0-0); EOSINOPHILS % (M) 1 % (0-7); ERYTHROBLAST% (NRBC) (M) 2 % (0-0); HYPOCHROMASIA 1+ (0-0); LYMPHOCYTES #M 2.7 10^3/ul (0.8-2.9); LYMPHOCYTES % (M) 26 % (15-51); MICROCYTOSIS 1+ (0-0); MONOCYTE #M 0.9 10^3/ul (0.3-0.9); MONOCYTES % (M) 9 % (0-11); PLATELET ESTIMATE INCREASED; POIKILOCYTOSIS 1+ (0-0); POLYCHROMASIA 1+ (0-0); ROULEAU 3+ (0-0); SEGMENTED NEUTROPHILS (M) % 64 % (39-77); SMUDGE%M 1 % (0-0)
== END 2019-04-12 18:40 | disposition home or self-care (01) ==
LOC: SDS 13:52
DX: E11.51 Type 2 diabetes mellitus with diabetic peripheral angiopathy without gangrene (principal); I70.248 Atherosclerosis of native arteries of left leg with ulceration of other part of lower leg; L97.829 Non-pressure chronic ulcer of other part of left lower leg with unspecified severity; I70.261 Atherosclerosis of native arteries of extremities with gangrene, right leg; E11.621 Type 2 diabetes mellitus with foot ulcer
CPT/HCPCS: 11042; 80053; 82962; 85025; 85610; 85730

== ENCOUNTER 2019-04-30 15:58 | Day surgery (SDC) | payer OTHER ==
[2019-04-30] MEDS: DEXTROSE 50% 50 ML SYRINGE IV (17:06)
[2019-04-30] MEDS: SOD CHLORIDE 0.9% 1,000 ML IV (17:07)
[2019-04-30] MEDS ORDERED: POLYMYXIN/BACITRACIN 1L IRRIG (18:13)
[2019-04-30] MEDS ORDERED: LIDOCAINE 1% (MPF) 30 ML INJ (18:13)
[2019-04-30] MEDS ORDERED: LABETALOL HCL 20MG INJ IV (18:30)
[2019-04-30] MEDS ORDERED: OXYCODONE/ACETAMINOPHEN (5/325) TAB PO (18:30)
[2019-04-30] MEDS ORDERED: hydrALAzine 20 MG INJ IV (18:30)
[2019-04-30] MEDS ORDERED: ONDANSETRON 4 MG INJ IV (18:30)
[2019-04-30] MEDS ORDERED: HYDROmorphONE 1 MG/5 ML IV SYRINGE IV (18:30)
[2019-04-30] MEDS ORDERED: CEFAZOLIN 1 GM INJ (18:47)
[2019-04-30] MEDS ORDERED: LABETALOL HCL 20MG INJ (18:48)
[2019-04-30] MEDS ORDERED: FENTAnyl 50 MCG/ML VIAL (18:50)
[2019-04-30] MEDS: POLYMYXIN B 500000 UNIT INJ (19:04)
[2019-04-30] MEDS: BACITRACIN 50000 UNITS INJ (19:04)
== END 2019-04-30 20:53 | disposition home or self-care (01) ==
LOC: SDS 15:58
DX: I70.248 Atherosclerosis of native arteries of left leg with ulceration of other part of lower leg (principal); L97.829 Non-pressure chronic ulcer of other part of left lower leg with unspecified severity; I70.261 Atherosclerosis of native arteries of extremities with gangrene, right leg; I10 Essential (primary) hypertension; E11.9 Type 2 diabetes mellitus without complications; Z79.84 Long term (current) use of oral hypoglycemic drugs; Z79.4 Long term (current) use of insulin
CPT/HCPCS: 11042; 82962; 84703

== ENCOUNTER 2019-05-14 14:40 | Day surgery (SDC) | payer OTHER ==
[2019-05-14] MEDS: SOD CHLORIDE 0.9% 1,000 ML IV (15:40)
[2019-05-14] MEDS ORDERED: DEXTROSE 50% 50 ML SYRINGE (15:47)
[2019-05-14] MEDS: DEXTROSE 50% 50 ML SYRINGE IV ×2 (15:54→18:54)
[2019-05-14] MEDS ORDERED: DEXTROSE 50% 50 ML SYRINGE IV (16:00)
[2019-05-14] MEDS ORDERED: FENTAnyl 50 MCG/ML VIAL (17:01)
[2019-05-14] MEDS ORDERED: MIDAZOLAM 1 MG/ML 2 ML INJ (17:04)
[2019-05-14] MEDS ORDERED: LABETALOL HCL 20MG INJ (17:08)
[2019-05-14] MEDS ORDERED: CEFAZOLIN 1 GM INJ (17:21)
[2019-05-14] MEDS: POLYMYXIN/BACITRACIN 1L IRRIG (17:24)
[2019-05-14] MEDS: BACITRACIN 50000 UNITS INJ IRR (17:24)
[2019-05-14] MEDS: POLYMYXIN B 500000 UNIT INJ (17:24)
[2019-05-14] MEDS: LIDOCAINE 1% (MPF) 30 ML INJ (17:24)
[2019-05-14] MEDS ORDERED: hydrALAzine 20 MG INJ (18:04)
[2019-05-14] MEDS ORDERED: ONDANSETRON 4 MG INJ IV (18:30)
[2019-05-14] MEDS ORDERED: MEPERIDINE 25 MG INJ IV (18:30)
[2019-05-14] MEDS ORDERED: PROCHLORPERAZINE 10 MG INJ IV (18:30)
[2019-05-14] MEDS ORDERED: HYDROmorphONE 1 MG/5 ML IV SYRINGE IV ×3 (18:30)
[2019-05-14] MEDS ORDERED: OXYCODONE/ACETAMINOPHEN (5/325) TAB PO (18:30)
[2019-05-14] MEDS ORDERED: DIPHENHYDRAMINE 50 MG INJ IV (18:30)
[2019-05-14] MEDS ORDERED: FENTAnyl 50 MCG/ML VIAL IV (18:30)
[2019-05-14] MEDS ORDERED: LABETALOL HCL 20MG INJ IV (18:30)
[2019-05-14] MEDS ORDERED: hydrALAzine 20 MG INJ IV (18:30)
== END 2019-05-14 19:15 | disposition home or self-care (01) ==
LOC: SDS 14:40
DX: E11.51 Type 2 diabetes mellitus with diabetic peripheral angiopathy without gangrene (principal); I70.249 Atherosclerosis of native arteries of left leg with ulceration of unspecified site; L97.929 Non-pressure chronic ulcer of unspecified part of left lower leg with unspecified severity; I70.261 Atherosclerosis of native arteries of extremities with gangrene, right leg; I10 Essential (primary) hypertension; Z79.84 Long term (current) use of oral hypoglycemic drugs; Z79.4 Long term (current) use of insulin
CPT/HCPCS: 11042; 82962